=== PATIENT | female | born 1965 | race Caucasian/White ===

== ENCOUNTER 2024-11-01 16:13 | Observation (INO) ==
--- NOTE | 2024-11-01 16:25 | ED Triage Note ---
Date of Service November 01, 2024 Provider in Triage Author: Segun Michel History of Present Illness This patient was briefly evaluated while in triage. An abbreviated physical exam was performed. This patient is a 59-year-old Female who presents to the ED for evaluation Hx of COPD, MS, HTN, lipids, hypothyroidism contact with grandson who is + influenza A sweats/chills, shortness of breath, left sided chest pain, "fluid" in chest x 3 days Physical Exam GENERAL: NAD CARDIOVASCULAR: RRR RESPIRATORY: BS diminished, O2 sats 88-91% ABDOMEN: BS x 4. Nontender to palpation. Initial orders for labs and / or imaging were placed and patient was placed in the waiting area until a bed is available. Please see further documentation for the full ED course.
[2024-11-01 17:04] LABS: Basophils # (auto) 0.01 K/uL (0.00-0.20); Basophils % (auto) 0.2 %; Eosinophils # (auto) 0.03 K/uL (0.00-0.50); Eosinophils % (auto) 0.5 %; Hematocrit (blood only) 37.2 % (37.0-47.0); Immature Granulocytes # (auto) 0.02 K/uL (0.01-0.20); Immature Granulocytes % (auto) 0.3 %; Lymphocytes # (auto) 1.01 K/uL (1.20-3.40); Lymphocytes % (auto) 16.6 %; Mean Corpuscular Hgb Conc 29.6 g/dL (32.0-36.0); Mean Corpuscular Volume 74.4 fL (80.0-100.0); Mean Platelet Volume 10.3 fL (9.4-12.4); Monocytes # (auto) 0.53 K/uL (0.11-0.59); Monocytes % (auto) 8.7 %; Neutrophils # (auto) 4.49 K/uL (1.40-6.50); Neutrophils % (auto) 73.7 %; Platelet Count 256 K/uL (130-400); RDW Coefficient of Variation 17.6 % (11.5-14.5); RDW Standard Deviation 46.7 fL (36.4-46.3); White Blood Count 6.09 K/ul (4.8-10.8)
[2024-11-01 17:17] LABS: Albumin Globulin Ratio 1.4 (0.9-2); Albumin Level 4.3 gm/dl (3.4-5.0); BUN Creatinine Ratio 14.7 (10-20); Bilirubin,Total 0.3 mg/dl (0.2-1.0); Calcium 9.5 mg/dl (8.6-10.3); Creatinine Clr Calc Pharmacy 88.4 ml/min; Globulin 3.1 gm/dl (2.5-4.0); Total Protein 7.4 gm/dl (6.0-8.3)
--- NOTE | 2024-11-01 17:23 | XRay Report ---
Chest radiograph, one view History: Chest pain Comparison: 12/24/2023 Findings: Single AP view of the chest performed. No focal consolidation or pleural effusion. No pneumothorax. The cardiomediastinal silhouette is within normal limits. Normal pulmonary vascularity. No evidence for lymphadenopathy. No visualized bony or soft tissue abnormality. Impression: Normal chest radiograph Electronically signed by Chiki Perea 11-01-2024 5:22 PM
[2024-11-01 17:24] LABS: Troponin I High Sensitivity 2.6 pg/ml (0-14)
[2024-11-01 17:48] LABS: Adenovirus PCR Not Detected (NotDetected); Bordetella parapertussis PCR Not Detected (NotDetected); Bordetella pertussis PCR Not Detected (NotDetected); Chlamydia pneumoniae PCR Not Detected (NotDetected); Coronavirus 229E PCR Not Detected (NotDetected); Coronavirus CoV-2 (COVID19)PCR Not Detected (NotDetected); Coronavirus HKU1 PCR Not Detected (NotDetected); Coronavirus NL63 PCR Not Detected (NotDetected); Coronavirus OC43PCR Not Detected (NotDetected); Human Metapneumovirus PCR Not Detected (NotDetected); Influenza A (H3) PCR DETECTED (NotDetected); Influenza B PCR Not Detected (NotDetected); Mycoplasma pneumoniae PCR Not Detected (NotDetected); Parainfluenza Virus 1 PCR Not Detected (NotDetected); Parainfluenza Virus 2 PCR Not Detected (NotDetected); Parainfluenza Virus 3 PCR Not Detected (NotDetected); Parainfluenza Virus 4 PCR Not Detected (NotDetected); Respiratory Syncytial VirusPCR Not Detected (NotDetected); Rhinovirus/Enterovirus PCR Not Detected (NotDetected)
--- NOTE | 2024-11-01 18:15 | Emergency Department Note ---
Impression & Plan Acute hypoxemic respiratory failure, Upper respiratory infection, Influenza ED Provider Note NAME: SAVANNAH ACKERMAN AGE: 59 SEX: F : 1965 ARRIVES VIA: Walk-In INFORMANT: Patient, ED PROVIDER(S): Adolfo Solis MD CHIEF COMPLAINT: Influenza HPI: This is a 59-year-old female sent for cough, congestion and shortness of breath. Patient notes that her grandson is positive for influenza. She began having symptoms either Wednesday night or Wednesday night. She notes she is feeling wheezy. She took leftover prednisone, 20 mg daily. She notes feeling wheezy without improvement in her inhalers. She reports history of COPD. She reports no nausea or vomiting. Does report fever and chills. ROS: See above HPI for pertinent positives & negatives. A total of 10 systems reviewed and were otherwise negative. PAST MEDICAL HISTORY: See Below PAST SURGICAL HISTORY: See Below FAMILY HISTORY: See Below SOCIAL HISTORY: See Below HOME MEDICATIONS: See Below ALLERGIES: See Below VITALS: See Below PHYSICAL EXAMINATION: General: resting comfortably in no acute distress Head: Normocephalic and atraumatic Eyes: Normal inspection, extraocular muscles intact Ear, nose, throat: Normal external exam Neck: Normal range of motion Respiratory: Wheezing and rhonchi in all lung saini Cardiovascular: Regular rate/rhythm, no murmur GI: soft, nontender, no guarding or rebound Extremities: nontender, moves all extremities Neuro: The patient awake and alert, appropriately conversive, no focal deficits, symmetric faces Skin: Warm, dry, and intact MEDICAL DECISION MAKING: This is a 59-year-old female present for cough, congestion and shortness of breath. Patient is currently tachycardic and hypoxic. Her oxygen level in the triage room is 80-87%. She is tachycardic about 109. -Chest Xray independently interpreted by me showing no pneumothorax, focal opacity, or pleural effusions. -Bloodwork is reviewed showing no significant leukocytosis, anemia, electrolyte or creatinine abnormality. Isolated AST elevation -Patient positive for influenza A -Will give patient albuterol treatments here for her symptomatic wheezing and hypoxia -Patient hypoxia, patient will require admission. Currently requiring 4 L nasal cannula. Differential diagnosis: COPD exacerbation, influenza, pneumonia, PE, sepsis Independent History obtained from: Daughter Diagnostics interpreted by me: ECG: ECG independently interpreted by me with sinus tachycardia 106, normal ME, normal QRS, normal QTc, no ST segment elevations consistent with STEMI criteria Cardiac Monitoring: An order was placed for continuous cardiac monitoring. The monitor shows a rate of 109 with sinus tachycardia rhythm. Past Med/Surg History Problem List (Updated 11/01/24 @ 22:20 by Adolfo Solis MD) Influenza (Acute) Upper respiratory infection (Acute) Acute hypoxemic respiratory failure (Acute) Social History Smoking Status: Current some day smoker Preferred Language: [place]an Feels Safe at Home: Yes Allergies Allergies Allergy/AdvReac Type Severity Reaction Status Date / Time glatiramer (copolymer 1) Allergy Mild Unknown Unverified 11/01/24 19:54 interferon beta-1a Allergy Mild Brand Unverified 11/01/24 19:54 "Avonex" Sulfa (Sulfonamide Allergy Mild Unknown Unverified 11/01/24 19:54 Antibiotics) mannitol Allergy ANAPHYLAXIS Unverified 03/07/12 19:34 Home Meds Home Medications Medication Instructions Recorded Confirmed albuterol sulfate 90 mcg/actuation 2 puff inhalation Q4 PRN Shortness 11/01/24 11/01/24 aerosol inhaler Of Breath Or Wheezing atorvastatin 80 mg tablet 80 mg PO DAILY 11/01/24 11/01/24 baclofen 10 mg tablet 10 mg PO TID PRN Pain 11/01/24 11/01/24 buspirone 15 mg tablet 15 mg PO [facility] 11/01/24 11/01/24 clobetasol 0.05 % topical cream 1 applic topical BID PRN 11/01/24 11/01/24 DIRECTED cyclosporine 0.05 % eye drops in a 1 drp OPB [facility] 11/01/24 11/01/24 dropperette (Restasis) dicyclomine 20 mg tablet 20 mg PO TID PRN STOMACH CRAMPING 11/01/24 11/01/24 diltiazem HCl 240 mg 240 mg PO HS 11/01/24 11/01/24 capsule,extended release 24 hr duloxetine 30 mg capsule,delayed 30 mg PO QPM 11/01/24 11/01/24 release duloxetine 60 mg capsule,delayed 60 mg PO QPM 11/01/24 11/01/24 release fenofibrate 160 mg tablet 160 mg PO HS 11/01/24 11/01/24 fexofenadine 180 mg tablet 180 mg PO HS 11/01/24 11/01/24 fluocinonide 0.05 % topical 1 applic topical 2XWK 11/01/24 11/01/24 solution fluoxetine 40 mg capsule 40 mg PO HS 11/01/24 11/01/24 fluticasone propionate 110 2 puff inhalation [facility] 11/01/24 11/01/24 mcg/actuation HFA aerosol inhaler fluticasone propionate 50 1 spray intranasal BID 11/01/24 11/01/24 mcg/actuation nasal spray,suspension furosemide 20 mg tablet 20 mg PO QAM 11/01/24 11/01/24 gabapentin 800 mg tablet 1,600 mg PO BID 11/01/24 11/01/24 isosorbide mononitrate 30 mg 30 mg PO QAM 11/01/24 11/01/24 tablet,extended release 24 hr levothyroxine 150 mcg tablet 150 mcg PO QPM 11/01/24 11/01/24 linaclotide 145 mcg capsule 145 mcg PO DAILY PRN Constipation 11/01/24 11/01/24 (Linzess) lorazepam 1 mg tablet 1 mg PO HS PRN ANXIETY OR SLEEP 11/01/24 11/01/24 melatonin 10 mg tablet 10 mg PO HS 11/01/24 11/01/24 metformin 1,000 mg tablet 1,000 mg PO AMPM 11/01/24 11/01/24 methocarbamol 750 mg tablet 750 mg PO TID 11/01/24 11/01/24 mupirocin 2 % topical ointment 1 applic topical BID 11/01/24 11/01/24 nitroglycerin 0.4 mg sublingual 0.4 mg sublingual UD PRN Chest Pain 11/01/24 11/01/24 tablet (Nitrostat) ondansetron HCl 4 mg tablet 4 mg PO Q8 PRN Nausea 11/01/24 11/01/24 pantoprazole 40 mg tablet,delayed 40 mg PO BID 11/01/24 11/01/24 release prazosin 2 mg capsule 2 mg PO HS 11/01/24 11/01/24 ropinirole 0.5 mg tablet 0.5 mg PO TID 11/01/24 11/01/24 selenium sulfide 2.25 % shampoo 1 applic topical 2XWK 11/01/24 11/01/24 tiotropium bromide 2.5 2 puff inhalation QAM 11/01/24 11/01/24 mcg/actuation mist for inhalation (Spiriva Respimat) trazodone 100 mg tablet 200 mg PO HS 11/01/24 11/01/24 valacyclovir 1 gram tablet 1,000 mg PO HS 11/01/24 11/01/24 Results & Data (ED) Vital Signs Vital Signs - 24 hr 11/01/24 16:22 11/01/24 18:54 11/01/24 18:54 Temperature 36.4 C L Temperature Source Oral Pulse Rate 111 H 108 H Pulse Rate [Apical] 109 H Pulse Rhythm Regular Pulse Strength Normal Respiratory Rate 20 22 Respiratory Effort / Characteristics Non-Labored Spontaneous Respiratory Depth Normal Blood Pressure 135/74 Blood Pressure [Left Arm] 154/93 H Blood Pressure Mean 94 Blood Pressure Mean [Left Arm] 113 Blood Pressure Position Sitting Blood Pressure Position [Left Arm] Sitting Pulse Oximetry 91 96 Oxygen Delivery Method Room Air Nasal Cannula Oxygen Flow Rate 4 Sepsis Recent Fever Within 48 Hours No Sepsis New/Unexplained Change in Mental Status N/A Sepsis Action Taken by Nursing No Action Required Laboratory Data 11/01/24 16:45 11/01/24 16:45 Lab Results 11/01/24 Range/Units 16:45 WBC 6.09 (4.8-10.8) K/ul RBC 5.00 (4.20-5.40) M/uL Hgb 11.0 L (12.0-16.0) g/dl Hct 37.2 (37.0-47.0) % MCV 74.4 L (80.0-100.0) fL MCH 22.0 L (25.0-34.0) pg MCHC 29.6 L (32.0-36.0) g/dL RDW Std Deviation 46.7 H (36.4-46.3) fL RDW Coeff of Madonna 17.6 H (11.5-14.5) % Plt Count 256 (130-400) K/uL MPV 10.3 (9.4-12.4) fL Immature Gran % (Auto) 0.3 % Neut % (Auto) 73.7 % Lymph % (Auto) 16.6 % Ward % (Auto) 8.7 % Eos % (Auto) 0.5 % Baso % (Auto) 0.2 % Neut # (Auto) 4.49 (1.40-6.50) K/uL Lymph # (Auto) 1.01 L (1.20-3.40) K/uL Ward # (Auto) 0.53 (0.11-0.59) K/uL Eos # (Auto) 0.03 (0.00-0.50) K/uL Baso # (Auto) 0.01 (0.00-0.20) K/uL Immature Gran # (Auto) 0.02 (0.01-0.20) K/uL APTT 28 (21-31) Seconds PTT Ratio 1.0 Sodium 140 (136-145) mmol/L Potassium 4.0 (3.5-5.1) mmol/L Chloride 100 (98-107) mmol/L Carbon Dioxide 30 (21-32) mmol/L Anion Gap 10 (3-11) BUN 14 (6-23) mg/dl Creatinine 0.95 (0.6-1.2) mg/dl Est Cr Clr Drug Dosing 88.4 ml/min eGFR 69.88 BUN/Creatinine Ratio 14.7 (10-20) Glucose 236 H (70-99(Fasting)) mg/dl Calcium 9.5 (8.6-10.3) mg/dl Magnesium 1.7 (1.7-2.4) mg/dl Total Bilirubin 0.3 (0.2-1.0) mg/dl AST 60 H (13-39) U/L ALT 40 (7-52) U/L Alkaline Phosphatase 93 (34-104) U/L Troponin I High Sens 2.6 (0-14) pg/ml Total Protein 7.4 (6.0-8.3) gm/dl Albumin 4.3 (3.4-5.0) gm/dl Globulin 3.1 (2.5-4.0) gm/dl Albumin/Globulin Ratio 1.4 (0.9-2) Lipase 19 (11-82) U/L Adenovirus (PCR) Not Detected (NotDetected) B. pertussis DNA (PCR) Not Detected (NotDetected) B.parapertussis DNA PCR Not Detected (NotDetected) C. pneumoniae DNA (PCR) Not Detected (NotDetected) Coronavirus OC43 (PCR) Not Detected (NotDetected) Coronavirus HKU1 (PCR) Not Detected (NotDetected) Coronavirus 229E (PCR) Not Detected (NotDetected) SARS-CoV-2 (PCR) Not Detected (NotDetected) Coronavirus NL63 (PCR) Not Detected (NotDetected) Human Metapneumovir PCR Not Detected (NotDetected) Influenza A (H3) PCR DETECTED A (NotDetected) Influenza Type B (PCR) Not Detected (NotDetected) M. pneumoniae (PCR) Not Detected (NotDetected) Parainfluenza 1 (PCR) Not Detected (NotDetected) Parainfluenza 2 (PCR) Not Detected (NotDetected) Parainfluenza 3 (PCR) Not Detected (NotDetected) Parainfluenza 4 (PCR) Not Detected (NotDetected) RSV (PCR) Not Detected (NotDetected) Entero/Rhino (PCR) Not Detected (NotDetected) Administered Medications Magnesium Sulfate/Dextrose (Magnesium Sulfate / D5w) 1 gm in 100 mls @ 50 mls/hr IV Q2H ZENIA Stop: 11/02/24 01:14 Last Admin: 11/01/24 22:06 Dose: 50 mls/hr Documented By: BRENDA Sodium Chloride (Nss) 1,000 mls @ 75 mls/hr IV .[id number] ONE Stop: 11/02/24 10:38 Last Admin: 11/01/24 22:08 Dose: 75 mls/hr Documented By: BRENDA Insulin Glargine (Lantus Per Unit Charge) 10 units SQ HS ZENIA Stop: 12/01/24 21:19 Last Admin: 11/01/24 22:07 Dose: 10 units Documented By: BRENDA Co-signed By: BRITTANY Melatonin (Melatonin 3 Mg Tab) 9 mg PO HSZ ZENIA Stop: 12/01/24 21:59 Last Admin: 11/01/24 22:06 Dose: 9 mg Documented By: BRENDA Discontinued Medications Albuterol (Albuterol 0.5% Neb Soln 2.5 Mg/0.5 Ml Vial) 2.5 mg NEB NOW STA; Protocol Stop: 11/01/24 19:01 Last Admin: 11/01/24 19:50 Dose: 2.5 mg Documented By: BRENDA Buspirone HCl (Buspirone 15 Mg Tab) 15 mg PO [facility] Stop: 12/01/24 21:29 Last Admin: 11/01/24 22:18 Dose: Not Given Documented By: BRENDA Diltiazem HCl (Diltiazem Hcl 240 Mg Capcr) 240 mg PO [facility] Stop: 12/01/24 21:29 Last Admin: 11/01/24 22:18 Dose: Not Given Documented By: BRENDA Fluoxetine HCl (Fluoxetine Hcl 20 Mg Cap) 40 mg PO [facility] Stop: 12/01/24 21:29 Last Admin: 11/01/24 22:18 Dose: Not Given Documented By: BRENDA Methylprednisolone (Methylprednisolone 125 Mg/2 Ml Vial) 20 mg IV NOW STA Stop: 11/01/24 21:09 Last Admin: 11/01/24 22:06 Dose: 20 mg Documented By: BRENDA Metoprolol Tartrate (Metoprolol Tartrate 1 Mg/Ml Vial) 2.5 mg IV NOW STA Stop: 11/01/24 19:49 Last Admin: 11/01/24 21:30 Dose: Not Given Documented By: BRENDA Oseltamivir Phosphate (Oseltamivir Phosphate 75 Mg Cap) 75 mg PO NOW ONE; Protocol Stop: 11/01/24 20:01 Last Admin: 11/01/24 21:29 Dose: 75 mg Documented By: BRENDA Imaging Data Radiologist's Impression: Chest X-Ray 11/01/24 16:25 Chest radiograph, one view History: Chest pain Comparison: 12/24/2023 Findings: Single AP view of the chest performed. No focal consolidation or pleural effusion. No pneumothorax. The cardiomediastinal silhouette is within normal limits. Normal pulmonary vascularity. No evidence for lymphadenopathy. No visualized bony or soft tissue abnormality. Impression: Normal chest radiograph Electronically signed by Chiki Perea 11-01-2024 5:22 PM Discharge Plan Visit Data Chief Complaint: Flu Like Symptoms Stated Complaint: FLU LIKE SX ED Provider: Adolfo Solis Discharge Problem: Acute hypoxemic respiratory failure, Upper respiratory infection, Influenza
[2024-11-01] MEDS: ALBUTEROL 0.5% NEB SOLN 2.5 MG/0.5 ML VIAL NEB STA (19:50)
--- NOTE | 2024-11-01 19:56 | History & Physical Report ---
Date of Service November 01, 2024 Assessment & Plan (1) Acute hypoxemic respiratory failure: Plan: Acute hypercapnic, hypoxemic respiratory failure History TATYANA/CPAP intolerance Secondary to COPD exacerbation/complicated bronchitis secondary to influenza illness History TATYANA/CPAP intolerance hx CAD/PVD hypertension, slight elevated hyperlipidemia, on statin Rx thyroid cancer status post surgery postsurgical hypothyroidism, euthyroid as of recent outpatient TSH from last year DM2 on oral medications, well-controlled as of hemoglobin A1c of 6.4 last January 2024 benign adrenal tumor status post surgery IBD, history of ulcerative colitis in remission chronic anemia, at baseline multiple sclerosis, RRMS as per daughter, patient slated to see [facility] neurologist anxiety/mood disorder/fibromyalgia, patient on multiple neuropsychotropic medications ongoing vape use Admit to medical telemetry Supplemental O2 Doxycycline for complicated bronchitis, nebs RTC, Solu-Medrol followed by prednisone course Tamiflu Pulmonology consulted without improvement Hold parameters for sedation confusion for neuropsychotropic medications Basal bolus insulin, ISS BG goal 1 10-1 40, carb count coverage, update hemoglobin A1c Nicotine replacement therapy as needed DVT prophylaxis. Lovenox subcu Full code Total critical care time was 40 minutes. Text document was generated using [employer] voice recognition software. It may contain grammatical or spelling errors. Kindly contact undersigned for clarification of any documentation item in question. History of Present Illness Chief Complaint: Worsening shortness of breath Primary Care Provider: Dr. Hughes History obtained from patient, family, and records. Medical history significant for CAD, PVD, hypertension, hyperlipidemia, COPD, TATYANA/CPAP intolerance, thyroid cancer status post surgery, postsurgical hypothyroidism, DM2 on oral medications, adrenal tumor status post surgery, GERD status post surgery, NAFLD, IBD, chronic anemia (baseline hemoglobin of 11), multiple sclerosis, anxiety/mood disorder, fibromyalgia, HSV on chronic Valtrex prophylaxis, ongoing vape use. 2 days history of junky cough symptoms associated with worsening shortness of breath. Pleuritic left-sided chest pain with abdominal pain. Denies fluid retention. Sick family members with the flu. Patient brought to the ER for evaluation. Medical History as above Surgical History : Thyroidectomy, breast reduction, left adrenalectomy, Niesen fundoplication, sinus surgery, BTL, DARLIN, total thyroidectomy Family History : Heart disease, stroke, Wilms tumor, MS, uterine cancer Personal/Social history : Ongoing vape use, no EtOH intake, disabled Allergies Allergy/AdvReac Type Severity Reaction Status Date / Time glatiramer (copolymer 1) Allergy Mild Unknown Unverified 11/01/24 19:54 interferon beta-1a Allergy Mild Brand Unverified 11/01/24 19:54 "Avonex" Sulfa (Sulfonamide Allergy Mild Unknown Unverified 11/01/24 19:54 Antibiotics) mannitol Allergy ANAPHYLAXIS Unverified 03/07/12 19:34 Home Medications Medication Instructions Recorded Confirmed Type albuterol sulfate 90 mcg/actuation 2 puff inhalation Q4 PRN Shortness 11/01/24 11/01/24 History aerosol inhaler Of Breath Or Wheezing atorvastatin 80 mg tablet 80 mg PO DAILY 11/01/24 11/01/24 History baclofen 10 mg tablet 10 mg PO TID PRN Pain 11/01/24 11/01/24 History buspirone 15 mg tablet 15 mg PO AMHS 11/01/24 11/01/24 History clobetasol 0.05 % topical cream 1 applic topical BID PRN 11/01/24 11/01/24 History DIRECTED cyclosporine 0.05 % eye drops in a 1 drp [facility] 11/01/24 11/01/24 History dropperette (Restasis) dicyclomine 20 mg tablet 20 mg PO TID PRN STOMACH CRAMPING 11/01/24 11/01/24 History diltiazem HCl 240 mg 240 mg PO HS 11/01/24 11/01/24 History capsule,extended release 24 hr duloxetine 30 mg capsule,delayed 30 mg PO QPM 11/01/24 11/01/24 History release duloxetine 60 mg capsule,delayed 60 mg PO QPM 11/01/24 11/01/24 History release fenofibrate 160 mg tablet 160 mg PO HS 11/01/24 11/01/24 History fexofenadine 180 mg tablet 180 mg PO HS 11/01/24 11/01/24 History fluocinonide 0.05 % topical 1 applic topical 2XWK 11/01/24 11/01/24 History solution fluoxetine 40 mg capsule 40 mg PO HS 11/01/24 11/01/24 History fluticasone propionate 110 2 puff inhalation AMHS 11/01/24 11/01/24 History mcg/actuation HFA aerosol inhaler fluticasone propionate 50 1 spray intranasal BID 11/01/24 11/01/24 History mcg/actuation nasal spray,suspension furosemide 20 mg tablet 20 mg PO QAM 11/01/24 11/01/24 History gabapentin 800 mg tablet 1,600 mg PO BID 11/01/24 11/01/24 History isosorbide mononitrate 30 mg 30 mg PO QAM 11/01/24 11/01/24 History tablet,extended release 24 hr levothyroxine 150 mcg tablet 150 mcg PO QPM 11/01/24 11/01/24 History linaclotide 145 mcg capsule 145 mcg PO DAILY PRN Constipation 11/01/24 11/01/24 History (Linzess) lorazepam 1 mg tablet 1 mg PO HS PRN ANXIETY OR SLEEP 11/01/24 11/01/24 History melatonin 10 mg tablet 10 mg PO HS 11/01/24 11/01/24 History metformin 1,000 mg tablet 1,000 mg PO AMPM 11/01/24 11/01/24 History methocarbamol 750 mg tablet 750 mg PO TID 11/01/24 11/01/24 History mupirocin 2 % topical ointment 1 applic topical BID 11/01/24 11/01/24 History nitroglycerin 0.4 mg sublingual 0.4 mg sublingual UD PRN Chest Pain 11/01/24 11/01/24 History tablet (Nitrostat) ondansetron HCl 4 mg tablet 4 mg PO Q8 PRN Nausea 11/01/24 11/01/24 History pantoprazole 40 mg tablet,delayed 40 mg PO BID 11/01/24 11/01/24 History release prazosin 2 mg capsule 2 mg PO HS 11/01/24 11/01/24 History ropinirole 0.5 mg tablet 0.5 mg PO TID 11/01/24 11/01/24 History selenium sulfide 2.25 % shampoo 1 applic topical 2XWK 11/01/24 11/01/24 History tiotropium bromide 2.5 2 puff inhalation QAM 11/01/24 11/01/24 History mcg/actuation mist for inhalation (Spiriva Respimat) trazodone 100 mg tablet 200 mg PO HS 11/01/24 11/01/24 History valacyclovir 1 gram tablet 1,000 mg PO HS 11/01/24 11/01/24 History Past Med/Surg History Problem List (Updated 11/01/24 @ 22:20 by Adolfo Solis MD) Influenza (Acute) Upper respiratory infection (Acute) Acute hypoxemic respiratory failure (Acute) Social History Smoking Status: Current every day smoker Tobacco Type: E-cigarettes / Vaping Hx Alcohol Use: No Hx Substance Use: No Preferred Language: Hungarian Communication Ability: Effective Certified Financial Planner Required: No Beliefs That Will Affect Care: None Current Living Situation: Family Current Living Situation Comment: daughter and her family, son Feels Safe at Home: Yes Assistive Devices: Cane and Walker Review of Systems Review of Systems: As per HPI, all other systems reviewed and negative Physical Exam Physical Exam: GENERAL: Slightly uncomfortable, obese, minimal respiratory distress SKIN: Normal color, warm HEENT: [place] palpebral conjunctivae, no ptosis, dry buccal mucosa, nasal cannula in place NECK : Supple, short neck, no tenderness CHEST : Decreased breath sounds, expiratory wheezes, no tenderness HEART : Tachycardic, no obvious murmurs ABDOMEN: Some distention, nontender EXTREMITIES : No LE swelling/tenderness, no other conspicuous deformities noted NEUROLOGIC : Coherent, no facial asymmetry, rest tremors, no other gross focality Results & Data Results & Data Vital Signs (Past 12 Hours) Vital Signs Temp Pulse Pulse Resp BP BP Pulse Ox 11/01/24 18:54 108 H 11/01/24 18:54 109 H 22 154/93 H 96 11/01/24 16:22 36.4 C L 111 H 20 135/74 91 O2 Del Method O2 Flow Rate 11/01/24 18:54 11/01/24 18:54 Nasal Cannula 4 11/01/24 16:22 Room Air Laboratory Results Laboratory Results WBC 6.09 K/ul (4.8-10.8) 11/01/24 16:45 RBC 5.00 M/uL (4.20-5.40) 11/01/24 16:45 Hgb 11.0 g/dl (12.0-16.0) L 11/01/24 16:45 Hct 37.2 % (37.0-47.0) 11/01/24 16:45 MCV 74.4 fL (80.0-100.0) L 11/01/24 16:45 MCH 22.0 pg (25.0-34.0) L 11/01/24 16:45 MCHC 29.6 g/dL (32.0-36.0) L 11/01/24 16:45 RDW Std Deviation 46.7 fL (36.4-46.3) H 11/01/24 16:45 RDW Coeff of [place] 17.6 % (11.5-14.5) H 11/01/24 16:45 Plt Count 256 K/uL (130-400) 11/01/24 16:45 MPV 10.3 fL (9.4-12.4) 11/01/24 16:45 Immature Gran % (Auto) 0.3 % 11/01/24 16:45 Neut % (Auto) 73.7 % 11/01/24 16:45 Lymph % (Auto) 16.6 % 11/01/24 16:45 [place] % (Auto) 8.7 % 11/01/24 16:45 Eos % (Auto) 0.5 % 11/01/24 16:45 Baso % (Auto) 0.2 % 11/01/24 16:45 Neut # (Auto) 4.49 K/uL (1.40-6.50) 11/01/24 16:45 Lymph # (Auto) 1.01 K/uL (1.20-3.40) L 11/01/24 16:45 [place] # (Auto) 0.53 K/uL (0.11-0.59) 11/01/24 16:45 Eos # (Auto) 0.03 K/uL (0.00-0.50) 11/01/24 16:45 Baso # (Auto) 0.01 K/uL (0.00-0.20) 11/01/24 16:45 Immature Gran # (Auto) 0.02 K/uL (0.01-0.20) 11/01/24 16:45 Sodium 140 mmol/L (136-145) 11/01/24 16:45 Potassium 4.0 mmol/L (3.5-5.1) 11/01/24 16:45 Chloride 100 mmol/L (98-107) 11/01/24 16:45 Carbon Dioxide 30 mmol/L (21-32) 11/01/24 16:45 Anion Gap 10 (3-11) 11/01/24 16:45 BUN 14 mg/dl (6-23) 11/01/24 16:45 Creatinine 0.95 mg/dl (0.6-1.2) 11/01/24 16:45 Est Cr Clr Drug Dosing 88.4 ml/min 11/01/24 16:45 eGFR 69.88 11/01/24 16:45 BUN/Creatinine Ratio 14.7 (10-20) 11/01/24 16:45 Glucose 236 mg/dl (70-99(Fasting)) H 11/01/24 16:45 Calcium 9.5 mg/dl (8.6-10.3) 11/01/24 16:45 Total Bilirubin 0.3 mg/dl (0.2-1.0) 11/01/24 16:45 AST 60 U/L (13-39) H 11/01/24 16:45 ALT 40 U/L (7-52) 11/01/24 16:45 Alkaline Phosphatase 93 U/L (34-104) 11/01/24 16:45 Troponin I High Sens 2.6 pg/ml (0-14) 11/01/24 16:45 Total Protein 7.4 gm/dl (6.0-8.3) 11/01/24 16:45 Albumin 4.3 gm/dl (3.4-5.0) 11/01/24 16:45 Globulin 3.1 gm/dl (2.5-4.0) 11/01/24 16:45 Albumin/Globulin Ratio 1.4 (0.9-2) 11/01/24 16:45 Adenovirus (PCR) Not Detected (NotDetected) 11/01/24 16:45 B. pertussis DNA (PCR) Not Detected (NotDetected) 11/01/24 16:45 B.parapertussis DNA PCR Not Detected (NotDetected) 11/01/24 16:45 C. pneumoniae DNA (PCR) Not Detected (NotDetected) 11/01/24 16:45 Coronavirus OC43 (PCR) Not Detected (NotDetected) 11/01/24 16:45 Coronavirus HKU1 (PCR) Not Detected (NotDetected) 11/01/24 16:45 Coronavirus 229E (PCR) Not Detected (NotDetected) 11/01/24 16:45 SARS-CoV-2 (PCR) Not Detected (NotDetected) 11/01/24 16:45 Coronavirus NL63 (PCR) Not Detected (NotDetected) 11/01/24 16:45 Human Metapneumovir PCR Not Detected (NotDetected) 11/01/24 16:45 Influenza A (H3) PCR DETECTED (NotDetected) A 11/01/24 16:45 Influenza Type B (PCR) Not Detected (NotDetected) 11/01/24 16:45 M. pneumoniae (PCR) Not Detected (NotDetected) 11/01/24 16:45 Parainfluenza 1 (PCR) Not Detected (NotDetected) 11/01/24 16:45 Parainfluenza 2 (PCR) Not Detected (NotDetected) 11/01/24 16:45 Parainfluenza 3 (PCR) Not Detected (NotDetected) 11/01/24 16:45 Parainfluenza 4 (PCR) Not Detected (NotDetected) 11/01/24 16:45 RSV (PCR) Not Detected (NotDetected) 11/01/24 16:45 Entero/Rhino (PCR) Not Detected (NotDetected) 11/01/24 16:45 Impressions Chest X-Ray 11/01/24 16:25 Chest radiograph, one view History: Chest pain Comparison: 12/24/2023 Findings: Single AP view of the chest performed. No focal consolidation or pleural effusion. No pneumothorax. The cardiomediastinal silhouette is within normal limits. Normal pulmonary vascularity. No evidence for lymphadenopathy. No visualized bony or soft tissue abnormality. Impression: Normal chest radiograph Electronically signed by Chiki Perea 11-01-2024 5:[address] chest: Normal chest CTA. No pulmonary embolism. CT abdomen pelvis: No acute findings in the abdomen or pelvis. Hepatomegaly and hepatic steatosis Splenomegaly Interval resection of the left adrenal gland Diagnostic Findings EKG as per my interpretation :Rate 110, sinus tachycardia, LAD, LAFB, LVH, no ischemia
[2024-11-01 19:57] LABS: Magnesium 1.7 mg/dl (1.7-2.4)
[2024-11-01 20:36] LABS: Partial Thromboplastin Time 28 Seconds (21-31)
[2024-11-01 20:43] LABS: HCO3 VBG 35 mmol/L; Oxygen Saturation VBG < 60.0 %; PCO2 VBG 61 mmHg (38-50); PO2 VBG 27 mmHg; pH VBG 7.36 (7.36-7.41)
[2024-11-01] MEDS ORDERED: oxyCODONE HCL IR 5 MG TAB (IMMEDIATE RELEASE) PO PRN (21:16)
[2024-11-01] MEDS ORDERED: PROMETHAZINE 12.5 MG/50.5 ML BAG IV PRN (21:19)
[2024-11-01] MEDS: OSELTAMIVIR PHOSPHATE 75 MG CAP PO ONE (21:29)
[2024-11-01] MEDS: METOPROLOL TARTRATE 1 MG/ML VIAL IV STA (21:30)
[2024-11-01] MEDS: methylPREDNISolone 125 MG/2 ML VIAL IV STA (22:06)
[2024-11-01] MEDS: MELATONIN 3 MG TAB PO SCH (22:06)
[2024-11-01] MEDS: MAGNESIUM SULFATE / D5W 1 GM/100 ML BAG IV SCH (22:06)
[2024-11-01] MEDS: LANTUS PER UNIT CHARGE SQ SCH (22:07)
[2024-11-01] MEDS: SODIUM CHLORIDE 0.9% 1,000 ML IV ONE (22:08)
[2024-11-01] MEDS: dilTIAZem HCL 240 MG CAPCR PO SCH (22:18)
[2024-11-01] MEDS: busPIRone 15 MG TAB PO SCH (22:18)
[2024-11-01] MEDS: FLUoxetine HCL 20 MG CAP PO SCH (22:18)
[2024-11-01] MEDS: OPTIRAY 320 125ml IV ONE (22:44)
[2024-11-01] MEDS: DOXYCYCLINE HYCLATE 100 MG in DEXTROSE 5% MINI-B 100 ML IV STA (22:51)
[2024-11-01] MEDS: FLUTICASONE PROPIONATE NA SPR 16 GM BTL SCH (22:51)
--- NOTE | 2024-11-01 23:53 | CT Scan Report ---
Exam(s): CTA CHEST IV Amt: 118 ml optiray 320 EXAM: CT Angiography Chest With Intravenous Contrast CLINICAL HISTORY: Reason for exam: cp. TECHNIQUE: Axial computed tomographic angiography images of the chest with intravenous contrast. CTDI is 11.87 mGy and DLP is 5.94 mGy-cm. Automated exposure control was utilized for the study. A dose lowering technique was utilized adhering to the principles of ALARA. MIP reconstructed images were created and reviewed. COMPARISON: No relevant prior studies available. FINDINGS: Pulmonary arteries: Unremarkable. No pulmonary embolism. Aorta: No acute findings. No thoracic aortic aneurysm. Lungs: Unremarkable. No mass. No consolidation. Pleural space: Unremarkable. No significant effusion. No pneumothorax. Heart: Unremarkable. No cardiomegaly. No significant pericardial effusion. No evidence of RV dysfunction. Bones/joints: No acute fracture. No dislocation. Soft tissues: Unremarkable. Lymph nodes: Unremarkable. No enlarged lymph nodes. IMPRESSION: Normal chest CTA. No pulmonary embolism. Electronically signed by: Richard Garcia MD 11/01/24 23:52 PM
--- OUTSIDE RECORDS SUMMARY | 2024-11-01 23:53 | External Medical Summary | Summary of Care ---
Author Name Unknown Organization [facility] Address [address] [place] [address] Phone [phone] Care Team Providers Care Yarn Preparation Supervisor Name Role Phone Sher Hughes MD Primary Care Provider [phone] Reason for Visit * Reason Comments eRx-Medication Refill Encounter Details Date Type Department Care Team (Late st Contact Info) Description 10/27/2024 Refill General Internal Medicine [facility] [address] [facility] [place] [address] Brina Ruth MD [address] [place] [address] Persistent insomnia Allergies Active Allergy Reactions Criticality Noted Date Comments Avonex Prefilled Anaphylaxis High 09/03/2009 Glatiramer Acetate Anaphylaxis High 09/03/2009 Anaph, copaxone, beta interferon 1 Penicillins 05/20/2020 Pt reports yeast infection due to being immunocompromised Sulfa Antibiotics 05/27/2010 Itchy documented as of this encounter (statuses as of 10/27/2024) Medications CLOBETASOL PROPIONATE 0.05 % EX CREAIndications:Ot her psoriasis apply to affected area twice a day for UP TO 2 weeks 15 g 1 3 Active nitroglycerin (NITROSTAT) 0.4 MG SUBL One tablet under tongue if needed for chest pain. May repeat 3 times. If chest pain continues, call [phone] 25 Tab 5 0 Active Mupirocin 2 % External Ointment Apply topically to affected area 2 times a day. As directed. 15 g 2 0 Active Linzess 145 MCG Oral Capsule Take 1 Capsule by mouth in the morning. 1 Active Carvedilol 25 MG Oral Tablet (Coreg) Take 1 Tablet by mouth in the morning and 1 Tablet before bedtime. 1 Active Melatonin 10 MG Oral Tablet Take 1 Tablet by mouth in the morning. Active Pantoprazole Sodium 40 MG Oral Tablet Delayed Release (Protonix)Indicati ons:Leach's esophagus with dysplasia TAKE ONE TABLET TWICE A DAY BY MOUTH 30-60 MINUTES BEFORE A MEAL OR AFTER 1 Active dilTIAZem HCl ER Coated Beads 120 MG Oral Capsule Extended Release 24 Hour (Cardizem CD)Indications:HTN , goal below 140/90 Take by mouth 2 Capsules in the morning. 30 Capsule 5 2 Active Fluocinonide 0.05 % External SolutionIndication s:Seborrhea capitis in adult APPLY TOPICALLY TO SCALP DAILY FOR 1 WEEK THEN 1-2 TIMES PER WEEK 60 mL 1 2 Active cycloSPORINE 0.05 % Ophthalmic Emulsion Instill 1 Drop into both eyes in the morning and 1 Drop before bedtime. 60 mL 2 Active Dicyclomine HCl 20 MG Oral Tablet (Bentyl) 2 Active Albuterol Sulfate HFA 108 (90 Base) MCG/ACT Inhalation Aerosol SolutionIndication s:COPD, group B, by GOLD 2017 classification ([facility]),Moderate persistent asthma with acute exacerbation,COPD exacerbation ([facility]) INHALE 2 PUFFS BY MOUTH EVERY 4 HOURS IF NEEDED 54 g 3 3 Active Spacer/Aero-Holdin g Chambers DeviceIndications: COPD, group B, by GOLD 2017 classification ([facility]),COPD exacerbation ([facility]) Use with inhaler. 1 Each 3 Active Fluticasone Propionate HFA 110 MCG/ACT Inhalation Aerosol (Flovent HFA)Indications:CO PD, group B, by GOLD 2017 classification ([facility]) Inhale 2 Puffs by mouth in the morning and 2 Puffs before bedtime. 36 g 3 3 Active Isosorbide Mononitrate ER 30 MG Oral Tablet Extended Release 24 Hour (Imdur) Take 1 Tablet by mouth in the morning. 3 Active Azithromycin 250 MG Oral Tablet (Zithromax Z-Jose Angel)Indications: Other chronic sinusitis Take two tablets by mouth on first day, then 1 tablet daily until gone 6 Tablet 3 Active Selenium Sulfide 2.25 % External ShampooIndications :Seborrheic dermatitis Apply to scalp and wash twice a week 180 mL 5 3 Active Atorvastatin Calcium 40 MG Oral Tablet (Lipitor) TAKE ONE TABLET BY MOUTH EVERY DAY 90 Tablet 2 3 Active DULoxetine HCl 60 MG Oral Capsule Delayed Release Particles (Cymbalta)Indicati ons:Fibromyalgia,G AD (generalized anxiety disorder) TAKE ONE CAPSULE BY MOUTH EVERY MORNING 90 Capsule 3 3 Active Spiriva Respimat 2.5 MCG/ACT Inhalation Aerosol Solution (Tiotropium Eagle Monohydrate) INHALE 2 PUFFS BY MOUTH IN THE MORNING 12 g 3 3 Active Accu-Chek Nieves Plus w/Device Kit Use to test 4 times daily. 1 Kit 4 Active Accu-Chek Nieves Plus In Vitro Strip (Glucose Blood) Use to test 4 times daily. 400 Strip 1 4 Active Accu-Chek Softclix Lancets Use to test 4 times daily. 400 Each 1 4 Active Alcohol Prep 70 % Pad Use to test 4 times daily. 400 Each 1 4 Active Glucose Control In Vitro Solution Use to calibrate meter. 1 Each 5 4 Active OneTouch Verio w/Device Kit Use up to 4 times a day E11.9 1 Kit 4 Active OneTouch Verio In Vitro Strip (Glucose Blood) Use up to 4 times a day E11.9 100 Strip 11 4 Active DULoxetine HCl 30 MG Oral Capsule Delayed Release Particles (Cymbalta)Indicati ons:Persistent insomnia TAKE ONE CAPSULE BY MOUTH EVERY EVENING. DO NOT CUT, CRUSH OR CHEW. 90 Capsule 1 4 Active Gabapentin 800 MG Oral Tablet (Neurontin) TAKE TWO TABLETS BY MOUTH EVERY MORNING AND TAKE TWO TABLETS BY MOUTH IN THE AFTERNOON 120 Tablet 11 4 Active busPIRone HCl 15 MG Oral Tablet (Buspar)Indication s:JINA (generalized anxiety disorder) Take 1 Tablet by mouth in the morning and 1 Tablet before bedtime. 60 Tablet 5 4 Active rOPINIRole HCl 0.5 MG Oral Tablet (Requip)Indication s:Restless legs syndrome Take 1 Tablet by mouth in the morning and 1 Tablet at noon and 1 Tablet before bedtime. 270 Tablet 3 4 Active Furosemide 20 MG Oral Tablet (Lasix) TAKE ONE TABLET BY MOUTH EVERY MORNING 30 Tablet 5 4 Active valACYclovir HCl 1 GM Oral Tablet (Valtrex) Take 1 Tablet by mouth daily. (For suppression) 90 Tablet 3 4 Active Methocarbamol 750 MG Oral Tablet (Robamol)Indicatio ns:HTN, goal below 140/90 TAKE ONE TABLET BY MOUTH THREE TIMES A DAY 270 Tablet 1 4 Active Ondansetron HCl 4 MG Oral Tablet (Zofran)Indication s:Nausea with vomiting TAKE ONE TABLET BY MOUTH EVERY 8 HOURS NEEDED FOR NAUSEA 270 Tablet 1 4 Active FLUoxetine HCl 40 MG Oral Capsule (PROzac)Indication s:Generalized anxiety disorder TAKE ONE CAPSULE BY MOUTH EVERY MORNING 90 Capsule 3 4 Active LORazepam 1 MG Oral Tablet (Ativan)Indication s:JINA (generalized anxiety disorder),Chronic post-traumatic stress disorder (PTSD),Other insomnia Take 1 Tablet by mouth at bedtime as needed for Anxiety or Sleep. Do not start before April 02, 2024. 30 Tablet 4 Active traZODone HCl 100 MG Oral Tablet (Desyrel)Indicatio ns:Persistent insomnia Take 1 Tablet by mouth at bedtime. 90 Tablet 3 4 Active metFORMIN HCl 1000 MG Oral Tablet (Glucophage)Indica tions:Type 2 diabetes mellitus with hemoglobin A1c goal of less than 7.0% ([facility]) TAKE ONE TABLET BY MOUTH TWICE A DAY(MORNING AND EVENING MEALS) 180 Tablet 3 4 Active Fluticasone Propionate 50 MCG/ACT Nasal Suspension (Flonase)Indicatio ns:COPD, group B, by GOLD 2017 classification ([facility]),Non-seasonal allergic rhinitis due to pollen SPRAY 1 SPRAY IN EACH NOSTRIL TWICE A DAY 48 g 3 4 Active Fenofibrate 160 MG Oral Tablet (Lofibra) TAKE ONE TABLET BY MOUTH EVERY MORNING 90 Tablet 4 Active Baclofen 10 MG Oral Tablet (Lioresal)Indicati ons:Fibromyalgia TAKE ONE TABLET BY MOUTH THREE TIMES A DAY NEEDED FOR PAIN 270 Tablet 1 4 Active Levothyroxine Sodium 150 MCG Oral Tablet (Levoxyl)Indicatio ns:Carotid stenosis, asymptomatic, bilateral TAKE ONE TABLET BY MOUTH IN THE MORNING . AT LEAST 30 MINUTES PRIOR TO BREAKFAST OR OTHER MEDS. 30 Tablet 3 4 Active Fexofenadine HCl 180 MG Oral Tablet (Shilpa) TAKE ONE TABLET BY MOUTH EVERY DAY 90 Tablet 3 5 Active documented as of this encounter (statuses as of 10/27/2024) Active Problems Problem Noted Date Diagnosed Date Physical deconditioning 10/04/2023 Moderate episode of recurrent major depressive d isorder 05/06/2023 HTN, goal below 130/80 03/25/2022 Ulcerative colitis 10/06/2021 Dyslipidemia 10/06/2021 Carotid stenosis, asymptomatic, bilateral 2020 Morbid obesity due to excess calories 12/30/2020 Body mass index (BMI) of 40.0 to 44.9 in adult 0 04/22/2020 Overview: Per Obesity protocol Papillary carcinoma of thyroid 04/17/2020 Chronic post-traumatic stress disorder (PTSD) JINA (generalized anxiety disorder) 04/17/2020 Nightmare 04/17/2020 COPD, group B, by GOLD 2017 classification 03/18 Overview: Per COPD GOLD Classification Recurrent acute sinusitis 02/02/2020 Generalized abdominal pain 10/19/2015 Kidney disease, chronic, stage III (GFR 30-59 ml /min) 09/02/2012 Type 2 diabetes mellitus wit h hemoglobin A1c goal of less than 7.0% 08/13/2011 Overview (02/04/2016): ICD-10 update of inactive term Dyslipidemia, goal LDL below 100 08/13/2010 Celiac disease 05/27/2010 Migraine with aura 09/03/2009 Overview (09/03/2009): 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 Fibromyalgia Other chronic sinusitis Irritable bowel syndrome Anemia Acquired hypothyroidism Neurogenic bladder Coronary atherosclerosis of [place] coronary shahbaz ry documented as of this encounter (statuses as of 10/27/2024) Resolved Problems Problem Noted Date Diagnosed Date Resolved Date Multiple sclerosis 10/06/2021 2 COPD, mild 08/13/2011 03/21/2020 Overview: Per COPD GOLD Classification Follow-up examination, javier dawson other surgery 06/27/2010 05/11/2011 Adrenal disorder 06/27/2010 05/11/2011 Plantar fasciitis 12/13/2019 documented as of this encounter (statuses as of 10/27/2024) Immunizations Name Administration Dates Next Due HEP B - Hepatitis B (Adole/H igh Risk Ped, 11-15 yrs 11/01/2019 Hepatitis B Vaccine 11/14/2020,11/01/2019 Hepatitis B, 20+ yrs 11/14/2020 MMR - Measles/Mumps/Rubella Vaccine 11/01/2019 Pneumococcal Conjugate Vacci ne, 20-valent ([id number]) 10/15/2022 Pneumococcal Polysaccharide PPV23 (Pneumovax) 12/30/2010 Seasonal Influenza Vac., MDV , IM, 0.5 mL (Fluzone) 08/13/2020,08/19/2012,08/02/2011,08/13 Seasonal Influenza, PF, 6 M & above, IM , (FluLaval or Fluzone) 10/15/2022 Seasonal Influenza, QUAD, wi th Preserv, 6 mons & Above, 0.5 mL, IM 08/04/2021 Seasonal Influenza, Quadriva lent, No Preserve, IM 08/13/2020 TD, Preservative Free 11/14/2020 Zoster Vaccine Recombinant (Shingrix) 11/01/2019 documented as of this encounter Social History Tobacco Use Types Packs/Day Years Used Date Smoking Tobacco: Former Cigarettes Q uit: 10/11/1989 Smokeless Tobacco: Never Alcohol Use Standard Drinks/Week Comments No 0 (1 standard drink = 0.6 oz pur e alcohol) PHQ-2 Answer Date Recorded PHQ-2 Score 2 12/13/2019 Hunger Vital Sign Answer Date Recorded Worried About Running Out of Food in the Last Ye ar Never true 12/13/2019 Ran Out of Food in the Last Year Never true 12/13/2019 Utilities Answer Date Recorded Do you have trouble paying y our heating, water, or electric bill? (Adult - for ages 18 years and over) Not on file 03/28/2024 Is your family able to pay t he heat, water, or electric bill? (Household - for ages 0-17 years) Not on file 03/28/2024 Does your family have access to good internet? (Household - for ages 0-17 years) Not on file 03/28/2024 Social Connections Answer Date Recorded How often do you feel lonely or isolated from those around you? (Adult - for ages 18 years and over) Not on file 03/28/2024 Comments No Sex and Gender Information Value Date Recorded Sex Assigned at Female 12/13/2019 10:00 AM EST Legal Sex Female 6:15 AM EST Gender Identity Female 12/13/2019 10:00 AM EST Sexual Orientation Straight 01/17/2024 10 :51 AM EDT Sexual Orientation Choose not to disclose 2023 10:51 AM EDT Occupation Industry Job Start Date Job End Date Disabled Not on file Not on file Not on file documented as of this encounter Miscellaneous Notes * Telephone Encounter - Sena Chilel RPh - 10/27/2024 12:13 PM ESTRefused Prescriptions: Disp Refills traZODone HCl 100 MG Oral Tablet (Desyrel) 90 Tab*3 Sig: TAKE ONE TABLET BY MOUTH DAILY AT BEDTIMERefused By: SENA CHILEL for Refusal: Too soon documented in this encounter Plan of Treatment Health Maintenance Due Date Last Done Comments Alpha-1 Antitrypsin 1985 Diabetic Eye Exam 09/03/2010 09/03/2009 Mammogram 10/24/2011 10/24/2010 Cologuard 2012 Fecal Occult Blood Test 2012 Sigmoidoscopy 2012 *COPD SEVERITY VERIFIED BY PFT 12/06/2019 Zoster Vaccines (2 of 2) 12/27/2019 11/01/2019 DTap/Tdap Vaccines (1 - Tdap) 11/15/2020 11/14/2020 Depression Monitoring 12/12/2020 12/13/2019 Hepatitis B Vaccine (3 of 3 - 19+ 3-dose series) 01/09/2021 11/14/2020, 11/14/2020, 11/01/2019, Additional history exists B-12 03/22/2024 03/22/2023, 03/11, 12/13/2019, Additional history exists Albumin/Creatinine Ratio 05/06/2024 023, 09/26/2021, 10/09/2020, Additional history exists CKD PHOS USE SMARTSET 02688 05/06/202404/11, 04/04/2023, 08/22/2021, Additional history exists COVID-19 Vaccine ( - season) 2024 Influenza Vaccine (FLU shot) (#1) 2024 10/15/2022, 08/04/2021, 08/13/2020, Additional history exists GFR 07/29/2024 01/28/2024, 12/09, 05/06/2023, Additional history exists HbA1c 07/29/2024 01/28/2024, 03/12, 04/04/2023, Additional history exists Diabetic Foot Exam 01/17/2025 01/18/2024, 0 10/15/2022, 11/14/2020, Additional history exists O2 ASSESSMENT COMPLETED IN PAST YEAR FOR COPD 01/17/2025 01/18/2024 CKD HGB USE SMARTSET 61106 01/27/202501/27, 12/26/2023, 05/06/2023, Additional history exists TSH 01/27/2025 01/28/2024, 12/09, 05/06/2023, Additional history exists Colonoscopy 05/13/2031 05/13/2021, 04/28/2010 Colorectal Cancer Screening 05/13/2031 Pneumococcal Vaccine: 50+ Years Completed 10/15/2022, 12/30/2010 HPV (Gardasil) Vaccine Aged Out No lo nger eligible based on patient's age to complete this topic MENINGOCOCCAL (MENACTRA/MENVEO) Aged Out No longer eligible based on patient's age to complete this topic documented as of this encounter Medical Devices Not on filedocumented as of this encounter Visit Diagnoses Diagnosis Persistent insomnia Persistent disorder of initiating or maintaining sleep documented in this encounter Advance Directives * Full Code (Latest Code Status on File) Date Activated Date Inactivated Comments 06/26/2010 2:03 PM 06/27/2010 5:55 PM This order r eflects the patients wishes and were consensually agreed upon. Care Teams Yarn Preparation Supervisor Relationship Specialty Start Date End Date Sher Hughes MD [address] [place] [address] PCP - General Internal Medicine 08/30/24 documented as of this encounter
--- OUTSIDE RECORDS SUMMARY | 2024-11-01 23:54 | External Medical Summary | Summary of Care ---
Author Name Unknown Organization [facility] Address [address] [place] [address] Phone [phone] Care Team Providers Care Maintainer Sewer And Waterworks Name Role Phone Sher Hughes MD Primary Care Provider [phone] Reason for Visit * Reason Comments eRx-Medication Refill Encounter Details Date Type Department Care Team (Late st Contact Info) Description 10/23/2024 Refill General Internal Medicine [facility] [address] [facility] [place] [address] Brina Ruth MD [address] [place] [address] Allergies Active Allergy Reactions Criticality Noted Date Comments Avonex Prefilled Anaphylaxis High 09/03/2009 Glatiramer Acetate Anaphylaxis High 09/03/2009 Anaph, copaxone, beta interferon 1 Penicillins 05/20/2020 Pt reports yeast infection due to being immunocompromised Sulfa Antibiotics 05/27/2010 Itchy documented as of this encounter (statuses as of 10/24/2024) Medications CLOBETASOL PROPIONATE 0.05 % EX CREAIndications:O ther psoriasis apply to affected area twice a day for UP TO 2 weeks 15 g 1 11/05/19 13 Active nitroglycerin (NITROSTAT) 0.4 MG SUBL One tablet under tongue if needed for chest pain. May repeat 3 times. If chest pain continues, call 911 25 Tab 5 06/04/20 20 Active Mupirocin 2 % External Ointment Apply topically to affected area 2 times a day. As directed. 15 g 2 08/28/20 20 Active Linzess 145 MCG Oral Capsule Take 1 Capsule by mouth in the morning. 12/06/19 21 Active Carvedilol 25 MG Oral Tablet (Coreg) Take 1 Tablet by mouth in the morning and 1 Tablet before bedtime. 06/23/20 21 Active Melatonin 10 MG Oral Tablet Take 1 Tablet by mouth in the morning. Active Pantoprazole Sodium 40 MG Oral Tablet Delayed Release (Protonix)Indicat ions:Leach's esophagus with dysplasia TAKE ONE TABLET TWICE A DAY BY MOUTH 30-60 MINUTES BEFORE A MEAL OR AFTER 08/22/20 21 Active dilTIAZem HCl ER Coated Beads 120 MG Oral Capsule Extended Release 24 Hour (Cardizem CD)Indications:HT N, goal below 140/90 Take by mouth 2 Capsules in the morning. 30 Capsule 5 02/27/20 22 Active Fluocinonide 0.05 % External SolutionIndicatio ns:Seborrhea capitis in adult APPLY TOPICALLY TO SCALP DAILY FOR 1 WEEK THEN 1-2 TIMES PER WEEK 60 mL 1 05/18/20 22 Active cycloSPORINE 0.05 % Ophthalmic Emulsion Instill 1 Drop into both eyes in the morning and 1 Drop before bedtime. 60 mL 07/09/20 22 Active Dicyclomine HCl 20 MG Oral Tablet (Bentyl) 07/08/20 22 Active Albuterol Sulfate HFA 108 (90 Base) MCG/ACT Inhalation Aerosol SolutionIndicatio ns:COPD, group B, by GOLD 2017 classification ([facility]),Moderate persistent asthma with acute exacerbation,COPD exacerbation ([facility]) INHALE 2 PUFFS BY MOUTH EVERY 4 HOURS IF NEEDED 54 g 3 10/15/19 23 Active Spacer/Aero-Holdi ng Chambers DeviceIndications :COPD, group B, by GOLD 2017 classification ([facility]),COPD exacerbation ([facility]) Use with inhaler. 1 Each 10/15/19 23 Active Fluticasone Propionate HFA 110 MCG/ACT Inhalation Aerosol (Flovent HFA)Indications:C OPD, group B, by GOLD 2017 classification ([facility]) Inhale 2 Puffs by mouth in the morning and 2 Puffs before bedtime. 36 g 3 01/05/20 23 Active Isosorbide Mononitrate ER 30 MG Oral Tablet Extended Release 24 Hour (Imdur) Take 1 Tablet by mouth in the morning. 05/06/20 Active Azithromycin 250 MG Oral Tablet (Zithromax Z-Jose Angel)Indications :Other chronic sinusitis Take two tablets by mouth on first day, then 1 tablet daily until gone 6 Tablet 05/06/20 Active Selenium Sulfide 2.25 % External ShampooIndication s:Seborrheic dermatitis Apply to scalp and wash twice a week 180 mL 5 05/13/20 Active Atorvastatin Calcium 40 MG Oral Tablet (Lipitor) TAKE ONE TABLET BY MOUTH EVERY DAY 90 Tablet 2 08/02/20 Active DULoxetine HCl 60 MG Oral Capsule Delayed Release Particles (Cymbalta)Indicat ions:Fibromyalgia ,JINA (generalized anxiety disorder) TAKE ONE CAPSULE BY MOUTH EVERY MORNING 90 Capsule 3 10/02/20 Active Spiriva Respimat 2.5 MCG/ACT Inhalation Aerosol Solution (Tiotropium [place] Monohydrate) INHALE 2 PUFFS BY MOUTH IN THE MORNING 12 g 3 10/02/20 Active Accu-Chek Nieves Plus w/Device Kit Use to test 4 times daily. 1 Kit 11/02/19 Active Accu-Chek Nieves Plus In Vitro Strip (Glucose Blood) Use to test 4 times daily. 400 Strip 1 11/02/19 Active Accu-Chek Softclix Lancets Use to test 4 times daily. 400 Each 1 11/02/19 Active Alcohol Prep 70 % Pad Use to test 4 times daily. 400 Each 1 11/02/19 Active Glucose Control In Vitro Solution Use to calibrate meter. 1 Each 5 11/02/19 24 Active OneTouch Verio w/Device Kit Use up to 4 times a day E11.9 1 Kit 11/08/19 24 Active OneTouch Verio In Vitro Strip (Glucose Blood) Use up to 4 times a day E11.9 100 Strip 11 11/08/19 Active DULoxetine HCl 30 MG Oral Capsule Delayed Release Particles (Cymbalta)Indicat ions:Persistent insomnia TAKE ONE CAPSULE BY MOUTH EVERY EVENING. DO NOT CUT, CRUSH OR CHEW. 90 Capsule 1 11/09/19 24 Active Gabapentin 800 MG Oral Tablet (Neurontin) TAKE TWO TABLETS BY MOUTH EVERY MORNING AND TAKE TWO TABLETS BY MOUTH IN THE AFTERNOON 120 Tablet 11 12/30/19 24 Active busPIRone HCl 15 MG Oral Tablet (Buspar)Indicatio ns:JINA (generalized anxiety disorder) Take 1 Tablet by mouth in the morning and 1 Tablet before bedtime. 60 Tablet 5 01/18/20 24 Active rOPINIRole HCl 0.5 MG Oral Tablet (Requip)Indicatio ns:Restless legs syndrome Take 1 Tablet by mouth in the morning and 1 Tablet at noon and 1 Tablet before bedtime. 270 Tablet 3 01/21/20 24 Active Furosemide 20 MG Oral Tablet (Lasix) TAKE ONE TABLET BY MOUTH EVERY MORNING 30 Tablet 5 01/29/20 24 Active valACYclovir HCl 1 GM Oral Tablet (Valtrex) Take 1 Tablet by mouth daily. (For suppression) 90 Tablet 3 02/24/20 24 Active Methocarbamol 750 MG Oral Tablet (Robamol)Indicati ons:HTN, goal below 140/90 TAKE ONE TABLET BY MOUTH THREE TIMES A DAY 270 Tablet 1 03/01/20 24 Active Ondansetron HCl 4 MG Oral Tablet (Zofran)Indicatio ns:Nausea with vomiting TAKE ONE TABLET BY MOUTH EVERY 8 HOURS NEEDED FOR NAUSEA 270 Tablet 1 03/11/20 24 Active FLUoxetine HCl 40 MG Oral Capsule (PROzac)Indicatio ns:Generalized anxiety disorder TAKE ONE CAPSULE BY MOUTH EVERY MORNING 90 Capsule 3 03/15/20 24 Active LORazepam 1 MG Oral Tablet (Ativan)Indicatio ns:JINA (generalized anxiety disorder),Chronic post-traumatic stress disorder (PTSD),Other insomnia Take 1 Tablet by mouth at bedtime as needed for Anxiety or Sleep. Do not start before April 02, 2024. 30 Tablet 04/02/20 24 Active traZODone HCl 100 MG Oral Tablet (Desyrel)Indicati ons:Persistent insomnia Take 1 Tablet by mouth at bedtime. 90 Tablet 3 04/16/20 24 Active metFORMIN HCl 1000 MG Oral Tablet (Glucophage)Indic ations:Type 2 diabetes mellitus with hemoglobin A1c goal of less than 7.0% ([facility]) TAKE ONE TABLET BY MOUTH TWICE A DAY(MORNING AND EVENING MEALS) 180 Tablet 3 04/27/20 24 Active Fluticasone Propionate 50 MCG/ACT Nasal Suspension (Flonase)Indicati ons:COPD, group B, by GOLD 2017 classification ([facility]),Non-seasona l allergic rhinitis due to pollen SPRAY 1 SPRAY IN EACH NOSTRIL TWICE A DAY 48 g 3 05/10/20 24 Active Fenofibrate 160 MG Oral Tablet (Lofibra) TAKE ONE TABLET BY MOUTH EVERY MORNING 90 Tablet 06/07/20 24 Active Baclofen 10 MG Oral Tablet (Lioresal)Indicat ions:Fibromyalgia TAKE ONE TABLET BY MOUTH THREE TIMES A DAY NEEDED FOR PAIN 270 Tablet 1 06/09/20 24 Active Levothyroxine Sodium 150 MCG Oral Tablet (Levoxyl)Indicati ons:Carotid stenosis, asymptomatic, bilateral TAKE ONE TABLET BY MOUTH IN THE MORNING . AT LEAST 30 MINUTES PRIOR TO BREAKFAST OR OTHER MEDS. 30 Tablet 3 08/25/20 24 Active Fexofenadine HCl 180 MG Oral Tablet (Shilpa) TAKE ONE TABLET BY MOUTH EVERY DAY 90 Tablet 3 10/24/19 25 Active Fexofenadine HCl 180 MG Oral Tablet (Shilpa) TAKE ONE TABLET BY MOUTH EVERY DAY 90 Tablet 3 08/14/20 23 025 Discontinued documented as of this encounter (statuses as of 10/24/2024) Active Problems Problem Noted Date Diagnosed Date [...] Acquired hypothyroidism Neurogenic bladder Coronary atherosclerosis of [place] coronary shahbaz ry documented as of this encounter (statuses as of 10/24/2024) Resolved Problems Problem Noted Date Diagnosed Date Resolved Date Multiple sclerosis 10/06/2021 2 COPD, mild 08/13/2011 03/21/2020 Overview: Per COPD GOLD Classification Follow-up examination, lindsayo other surgery 06/27/2010 05/11/2011 Adrenal disorder 06/27/2010 05/11/2011 Plantar fasciitis 12/13/2019 documented as of this encounter (statuses as of 10/24/2024) Immunizations Name Administration Dates Next Due HEP B - Hepatitis B (Adole/H igh Risk Ped, 11-15 yrs 11/01/2019 Hepatitis B Vaccine 11/14/2020,11/01/2019 Hepatitis B, 20+ yrs 11/14/2020 MMR - Measles/Mumps/Rubella Vaccine 11/01/2019 Pneumococcal Conjugate Vacci ne, 20-valent ([id number]) 10/15/2022 Pneumococcal Polysaccharide PPV23 (Pneumovax) 12/30/2010 Seasonal [...] encounter Miscellaneous Notes * Telephone Encounter - Hui Dowd RPh - 10/24/2024 12:23 PM EST Signed Prescriptions: Disp Refills Fexofenadine HCl 180 MG Oral Tablet (Alleg*90 Tab*3 Sig: TAKE ONE TABLET BY MOUTH EVERY DAYAuthorizing Provider: Sp RUTH User: HUI DOWD documented in this encounter Plan of Treatment [...] Additional history exists CKD PHOS USE SMARTSET 39260 05/06/202404/11, 04/04/2023, 08/22/2021, Additional history exists COVID-19 Vaccine ( season) 2024 Influenza Vaccine (FLU shot) (#1) 2024 10/15/2022, 08/04/2021, 08/13/2020, Additional history exists GFR 07/29/2024 01/28/2024, 12/09, 05/06/2023, Additional history exists HbA1c 07/29/2024 01/28/2024, 0602/2023, 04/04/2023, Additional history exists Diabetic Foot Exam 01/17/2025 01/18/2024, 0 10/15/2022, 11/14/2020, Additional history exists O2 ASSESSMENT COMPLETED IN PAST YEAR FOR COPD 01/17/2025 01/18/2024 CKD HGB USE SMARTSET 88522 01/27/202501/27, 12/26/2023, 05/06/2023, Additional history exists TSH 01/27/2025 01/28/2024, 12/09, 05/06/2023, Additional history exists Colonoscopy 05/13/2031 05/13/2021, 04/28/2010 Colorectal Cancer Screening 05/13/2031 Pneumococcal Vaccine: 50+ Years Completed 10/15/2022, 12/30/2010 Pneumococcal Vaccine: Pediatrics (0 to 5 Years) and At-Risk Patients (6 to 18 Years and 19+ Years) Completed 10/15/2022, 12/30/2010 HPV (Gardasil) Vaccine Aged Out No lo nger eligible based on patient's age to complete this topic MENINGOCOCCAL (MENACTRA/MENVEO) Aged Out No longer eligible based on patient's age to complete this topic documented as of this encounter Medical Devices Not on filedocumented as of this encounter Advance Directives * Full Code (Latest Code Status on File) Date Activated Date Inactivated Comments 06/26/2010 2:03 PM 06/27/2010 5:55 PM This order r eflects the patients wishes and were consensually agreed upon. Care Teams Maintainer [employer] Relationship Specialty Start Date End Date Sher Hughes MD [address] [place] [address] PCP - General Internal Medicine 08/30/24 documented as of this encounter
--- OUTSIDE RECORDS SUMMARY | 2024-11-01 23:54 | External Medical Summary | Summary of Care ---
Author Name Unknown Organization [facility] Address [address] [place] [address] Phone [phone] Care Team Providers Care Ripper Operator Name Role Phone Sher Hughes MD Primary Care Provider [phone] Reason for Visit * Reason Comments eRx-Medication Refill Encounter Details Date Type Department Care Team (Late st Contact Info) Description 09/21/2024 Refill General Internal Medicine [facility] [address] [facility] [place] [address] Brina Ruth MD [address] [place] [address] HTN, goal below 140/90 Allergies Active Allergy Reactions Criticality Noted Date Comments Avonex Prefilled Anaphylaxis High 09/03/2009 Glatiramer Acetate Anaphylaxis High 09/03/2009 Anaph, copaxone, beta interferon 1 Penicillins 05/20/2020 Pt reports yeast infection due to being immunocompromised Sulfa Antibiotics 05/27/2010 Itchy documented as of this encounter (statuses as of 09/22/2024) Medications CLOBETASOL PROPIONATE 0.05 % EX CREAIndications:Ot [...] s:COPD, group B, by GOLD 2017 classification ([facility]),Moderate persistent asthma with acute exacerbation,COPD exacerbation ([facility]) INHALE 2 PUFFS BY MOUTH EVERY 4 HOURS IF NEEDED 54 g 3 3 Active Spacer/Aero-Holdin g Chambers DeviceIndications: COPD, group B, by GOLD 2017 classification ([facility]),COPD exacerbation ([facility]) Use with inhaler. 1 Each 3 Active Fluticasone Propionate HFA 110 MCG/ACT Inhalation Aerosol (Flovent HFA)Indications:CO PD, group B, by GOLD 2017 classification ([facility]) Inhale 2 Puffs by mouth in the [...] EVERY DAY 90 Tablet 2 3 Active Fexofenadine HCl 180 MG Oral Tablet (Shilpa) TAKE ONE TABLET BY MOUTH EVERY DAY 90 Tablet 3 3 Active DULoxetine HCl 60 MG Oral Capsule Delayed Release Particles (Cymbalta)Indicati ons:Fibromyalgia,G AD (generalized anxiety disorder) TAKE ONE CAPSULE BY MOUTH EVERY MORNING 90 Capsule 3 3 Active Spiriva Respimat 2.5 MCG/ACT Inhalation Aerosol Solution (Tiotropium [place] Monohydrate) INHALE 2 PUFFS BY MOUTH IN [...] hemoglobin A1c goal of less than 7.0% ([facility]) TAKE ONE TABLET BY MOUTH TWICE A DAY(MORNING AND EVENING MEALS) 180 Tablet 3 4 Active Fluticasone Propionate 50 MCG/ACT Nasal Suspension (Flonase)Indicatio ns:COPD, group B, by GOLD 2017 classification ([facility]),Non-seasonal allergic rhinitis due to pollen SPRAY 1 [...] OTHER MEDS. 30 Tablet 3 4 Active documented as of this encounter (statuses as of 09/22/2024) Active Problems Problem Noted Date Diagnosed Date [...] Acquired hypothyroidism Neurogenic bladder Coronary atherosclerosis of [place] coronary shahbaz ry documented as of this encounter (statuses as of 09/22/2024) Resolved Problems Problem Noted Date Diagnosed Date Resolved Date Multiple sclerosis 10/06/2021 2 COPD, mild 08/13/2011 03/21/2020 Overview: Per COPD GOLD Classification Follow-up examination, javier wing other surgery 06/27/2010 05/11/2011 Adrenal disorder 06/27/2010 05/11/2011 Plantar fasciitis 12/13/2019 documented as of this encounter (statuses as of 09/22/2024) Immunizations Name Administration Dates Next Due HEP B - Hepatitis B (Adole/H igh Risk Ped, 11-15 yrs 11/01/2019 Hepatitis B Vaccine 11/14/2020,11/01/2019 Hepatitis B, 20+ yrs 11/14/2020 MMR - Measles/Mumps/Rubella Vaccine 11/01/2019 Pneumococcal Conjugate Vacci ne, 20-valent ([id number]) 10/15/2022 Pneumococcal Polysaccharide PPV23 (Pneumovax) 12/30/2010 Seasonal [...] encounter Miscellaneous Notes * Telephone Encounter - Ciara Null [facility] - 09/22/2024 10:43 AM ESTRefused Prescriptions: Disp Refills Lisinopril 40 MG Oral Tablet 90 Tab*3 Sig: TAKE ONE TABLET BY MOUTH EVERY MORNINGRefused By: Pierre NULL for Refusal: Managed by another physicianReason for Refusal Comment: Sher Hughes Fenofibrate 160 MG Oral Tablet (Lofibra) 90 Tab*0 Sig: TAKE ONE TABLET BY MOUTH EVERY MORNINGRefused By: Pierre NULL for Refusal: Manage d by another physicianReason for Refusal Comment: Sher Hughes documented in this encounter Plan of Treatment [...] Additional history exists CKD PHOS USE SMARTSET 22565 05/06/202404/11, 04/04/2023, 08/22/2021, Additional history exists COVID-19 [...] COPD 01/17/2025 01/18/2024 CKD HGB USE SMARTSET 35479 01/27/202501/27, 12/26/2023, 05/06/2023, Additional history exists TSH 01/27/2025 01/28/2024, 12/09, 05/06/2023, Additional history exists Colonoscopy 05/13/2031 05/13/2021, 04/28/2010 Colorectal Cancer Screening 05/13/2031 Pneumococcal Vaccine: Pediatrics (0 to 5 Years) and At-Risk Patients (6 to 64 Years) Completed 10/15/2022, 12/30/2010 HPV (Gardasil) Vaccine Aged Out No lo nger eligible based on patient's age to complete this topic MENINGOCOCCAL (MENACTRA/MENVEO) Aged Out No longer eligible based on patient's age to complete this topic documented as of this encounter Medical Devices Not on filedocumented as of this encounter Visit Diagnoses Diagnosis HTN, goal below 140/90 Unspecified essential hypertension documented in this encounter Advance Directives * Full Code (Latest Code Status on File) Date Activated Date Inactivated Comments 06/26/2010 2:03 PM 06/27/2010 5:55 PM This order r eflects the patients wishes and were consensually agreed upon. Care Teams Ripper Operator Relationship Specialty Start Date End Date Sher Hughes MD [address] [facility] [place] [address] PCP - General Internal Medicine 08/30/24 documented as of this encounter
--- OUTSIDE RECORDS SUMMARY | 2024-11-01 23:54 | External Medical Summary | Summary of Care ---
Author Name Unknown Organization [facility] Address [address] [place] [address] Phone [phone] Care Team Providers Care Optical Brightener Maker Helper Name Role Phone Sher Hughes MD Primary Care Provider [phone] Reason for Visit * Reason Comments eRx-Medication Refill Encounter Details Date Type Department Care Team (Late st Contact Info) Description 10/24/2024 Refill General Internal Medicine [facility] [address] [facility] [place] [address] Brina Ruth MD [address] [place] [address] Persistent insomnia Allergies Active Allergy Reactions Criticality Noted Date Comments Avonex Prefilled Anaphylaxis High 09/03/2009 Glatiramer Acetate Anaphylaxis High 09/03/2009 Anaph, copaxone, beta interferon 1 Penicillins 05/20/2020 Pt reports yeast infection due to being immunocompromised Sulfa Antibiotics 05/27/2010 Itchy documented as of this encounter (statuses as of 10/25/2024) Medications CLOBETASOL PROPIONATE 0.05 % EX CREAIndications:Ot [...] s:COPD, group B, by GOLD 2017 classification ([facility]),Moderate persistent asthma with acute exacerbation,COPD exacerbation ([facility]) INHALE 2 PUFFS BY MOUTH EVERY 4 HOURS IF NEEDED 54 g 3 3 Active Spacer/Aero-Holdin g Chambers DeviceIndications: COPD, group B, by GOLD 2017 classification ([facility]),COPD exacerbation ([facility]) Use with inhaler. 1 Each 3 Active Fluticasone Propionate HFA 110 MCG/ACT Inhalation Aerosol (Flovent HFA)Indications:CO PD, group B, by GOLD 2017 classification ([facility]) Inhale 2 Puffs by mouth [...] Respimat 2.5 MCG/ACT Inhalation Aerosol Solution (Tiotropium [place] Monohydrate) INHALE 2 PUFFS BY MOUTH IN [...] hemoglobin A1c goal of less than 7.0% ([facility]) TAKE ONE TABLET BY MOUTH TWICE A DAY(MORNING AND EVENING MEALS) 180 Tablet 3 4 Active Fluticasone Propionate 50 MCG/ACT Nasal Suspension (Flonase)Indicatio ns:COPD, group B, by GOLD 2017 classification ([facility]),Non-seasonal allergic rhinitis due to pollen SPRAY 1 [...] as of this encounter (statuses as of 10/25/2024) Active Problems Problem Noted Date Diagnosed Date [...] Acquired hypothyroidism Neurogenic bladder Coronary atherosclerosis of [place] coronary shahbaz ry documented as of this encounter (statuses as of 10/25/2024) Resolved Problems Problem Noted Date Diagnosed Date Resolved Date Multiple sclerosis 10/06/2021 2 COPD, mild 08/13/2011 03/21/2020 Overview: Per COPD GOLD Classification Follow-up examination, javier dawson other surgery 06/27/2010 05/11/2011 Adrenal disorder 06/27/2010 05/11/2011 Plantar fasciitis 12/13/2019 documented as of this encounter (statuses as of 10/25/2024) Immunizations Name Administration Dates Next Due HEP B - Hepatitis B (Adole/H igh Risk Ped, 11-15 yrs 11/01/2019 Hepatitis B Vaccine 11/14/2020,11/01/2019 Hepatitis B, 20+ yrs 11/14/2020 MMR - Measles/Mumps/Rubella Vaccine 11/01/2019 Pneumococcal Conjugate Vacci ne, 20-valent ([id number]) 10/15/2022 Pneumococcal Polysaccharide PPV23 (Pneumovax) 12/30/2010 Seasonal [...] encounter Miscellaneous Notes * Telephone Encounter - Mynor Manzano [facility] - 10/25/2024 6:13 AM ESTRefused Prescriptions: Disp Refills traZODone HCl 100 MG Oral Tablet (Desyrel) 90 Tab*3 Sig: TAKE ONE TABLET BY MOUTH DAILY AT BEDTIMERefused By: MYNOR MANZANO LReason for Refusal: Refill Not AppropriateReason for Refusal Comment: 1 year sent 04/16/24 documented in this encounter Plan of Treatment [...] Additional history exists CKD PHOS USE SMARTSET 54296 05/06/202404/11, 04/04/2023, 08/22/2021, Additional history exists COVID-19 [...] COPD 01/17/2025 01/18/2024 CKD HGB USE SMARTSET 81772 01/27/202501/27, 12/26/2023, 05/06/2023, Additional history exists TSH [...] and were consensually agreed upon. Care Teams Optical Brightener Maker Helper Relationship Specialty Start Date End Date Sher Hughes MD [address] [place] [address] PCP - General Internal Medicine 08/30/24 documented as of this encounter
--- OUTSIDE RECORDS SUMMARY | 2024-11-01 23:54 | External Medical Summary | Summary of Care ---
Author Name Unknown Organization [facility] Address [address] [place] [address] Phone [phone] Care Team Providers Care Health Services Coordinator Name Role Phone Brina Ruth MD Primary Care Provider [phone] Reason for Visit * Reason Comments eRx-Medication Refill Encounter Details Date Type Department Care Team ([facility] st Contact Info) Description 07/29/2024 Refill General Internal Medicine [facility] [address] [place] [address] Brina Ruth MD [address] [place] [address] HTN, goal below 140/90; JINA (generalized anxiety disorder) Allergies Active Allergy Reactions Criticality Noted Date Comments Avonex Prefilled Anaphylaxis High 09/03/2009 Glatiramer Acetate Anaphylaxis High 09/03/2009 Anaph, copaxone, beta interferon 1 Penicillins 05/20/2020 Pt reports yeast infection due to being immunocompromised Sulfa Antibiotics 05/27/2010 Itchy documented as of this encounter (statuses as of 07/31/2024) Medications Medication Sig Dispensed Refills Start Date End Date Status CLOBETASOL PROPIONATE 0.05 % EX CREAIndications:Other psoriasis apply to affected area twice a day for UP TO 2 weeks 15 g 1 11/05/2012 Active nitroglycerin (NITROSTAT) 0.4 MG SUBL One tablet under tongue if needed for chest pain. May repeat 3 times. If chest pain continues, call 911 25 Tab 5 06/04/2020 Active Mupirocin 2 % External Ointment Apply topically to affected area 2 times a day. As directed. 15 g 2 08/28/2020 Active Linzess 145 MCG Oral Capsule Take 1 Capsule by mouth in the morning. 12/06/2020 Active Carvedilol 25 MG Oral Tablet (Coreg) Take 1 Tablet by mouth in the morning and 1 Tablet before bedtime. 06/23/2021 Active Melatonin 10 MG Oral Tablet Take 1 Tablet by mouth in the morning. Active Pantoprazole Sodium 40 MG Oral Tablet Delayed Release (Protonix)Indications :Leach's esophagus with dysplasia TAKE ONE TABLET TWICE A DAY BY MOUTH 30-60 MINUTES BEFORE A MEAL OR AFTER 08/22/2021 Active dilTIAZem HCl ER Coated Beads 120 MG Oral Capsule Extended Release 24 Hour (Cardizem CD)Indications:HTN, goal below 140/90 Take by mouth 2 Capsules in the morning. 30 Capsule 5 02/26/2022 Active Fluocinonide 0.05 % External SolutionIndications:S eborrhea capitis in adult APPLY TOPICALLY TO SCALP DAILY FOR 1 WEEK THEN 1-2 TIMES PER WEEK 60 mL 1 05/18/2022 Active cycloSPORINE 0.05 % Ophthalmic Emulsion Instill 1 Drop into both eyes in the morning and 1 Drop before bedtime. 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 1 Each 10/15/2022 Active Fluticasone Propionate HFA 110 MCG/ACT Inhalation Aerosol (Flovent HFA)Indications:COPD, group B, by GOLD 2017 classification ([facility]) Inhale 2 Puffs by mouth in the morning and 2 Puffs before bedtime. 36 g 3 10/15/2022 Active Isosorbide Mononitrate ER 30 MG Oral Tablet Extended Release 24 Hour (Imdur) Take 1 Tablet by mouth in the morning. 05/06/2023 Active Azithromycin 250 MG Oral Tablet (Zithromax Z-Jose Angel)Indications:Oth er chronic sinusitis Take two tablets by mouth on first day, then 1 tablet daily until gone 6 Tablet 05/06/2023 Active Selenium Sulfide 2.25 % External ShampooIndications:Se borrheic dermatitis Apply to scalp and wash twice a week 180 mL 5 05/13/2023 Active Atorvastatin Calcium 40 MG Oral Tablet (Lipitor) TAKE ONE TABLET BY MOUTH EVERY DAY 90 Tablet 2 08/02/2023 Active Fexofenadine HCl 180 MG Oral Tablet (Shilpa) TAKE ONE TABLET BY MOUTH EVERY DAY 90 Tablet 3 08/14/2023 Active DULoxetine HCl 60 MG Oral Capsule Delayed Release Particles (Cymbalta)Indications :Fibromyalgia,JINA (generalized anxiety disorder) TAKE ONE CAPSULE BY MOUTH EVERY MORNING 90 Capsule 3 10/02/2023 Active Spiriva Respimat 2.5 MCG/ACT Inhalation Aerosol Solution (Tiotropium [place] Monohydrate) INHALE 2 PUFFS BY MOUTH IN THE MORNING 12 g 3 10/02/2023 Active Accu-Chek Nieves Plus w/Device Kit Use to test 4 times daily. 1 Kit 11/02/2023 Active Accu-Chek Nieves Plus In Vitro Strip (Glucose Blood) Use to test 4 times daily. 400 Strip 1 11/02/2023 Active Accu-Chek Softclix Lancets Use to test 4 times daily. 400 Each 1 11/02/2023 Active Alcohol Prep 70 % Pad Use to test 4 times daily. 400 Each 1 11/02/2023 Active Glucose Control In Vitro Solution Use to calibrate meter. 1 Each 5 11/02/2023 Active OneTouch Verio w/Device Kit Use up to 4 times a day E11.9 1 Kit 11/08/2023 Active OneTouch Verio In Vitro Strip (Glucose Blood) Use up to 4 times a day E11.9 100 Strip 11 11/08/2023 Active DULoxetine HCl 30 MG Oral Capsule Delayed Release Particles (Cymbalta)Indications :Persistent insomnia TAKE ONE CAPSULE BY MOUTH EVERY EVENING. DO NOT CUT, CRUSH OR CHEW. 90 Capsule 1 11/09/2023 Active Gabapentin 800 MG Oral Tablet (Neurontin) TAKE TWO TABLETS BY MOUTH EVERY MORNING AND TAKE TWO TABLETS BY MOUTH IN THE AFTERNOON 120 Tablet 11 12/30/2023 Active busPIRone HCl 15 MG Oral Tablet (Buspar)Indications:G AD (generalized anxiety disorder) Take 1 Tablet by mouth in the morning and 1 Tablet before bedtime. 60 Tablet 5 01/18/2024 Active rOPINIRole HCl 0.5 MG Oral Tablet (Requip)Indications:R estless legs syndrome Take 1 Tablet by mouth in the morning and 1 Tablet at noon and 1 Tablet before bedtime. 270 Tablet 3 01/21/2024 Active Furosemide 20 MG Oral Tablet (Lasix) TAKE ONE TABLET BY MOUTH EVERY MORNING 30 Tablet 5 01/29/2024 Active valACYclovir HCl 1 GM Oral Tablet (Valtrex) Take 1 Tablet by mouth daily. (For suppression) 90 Tablet 3 02/24/2024 Active Methocarbamol 750 MG Oral Tablet (Robamol)Indications: HTN, goal below 140/90 TAKE ONE TABLET BY MOUTH THREE TIMES A DAY 270 Tablet 1 03/01/2024 Active Ondansetron HCl 4 MG Oral Tablet (Zofran)Indications:N ausea with vomiting TAKE ONE TABLET BY MOUTH EVERY 8 HOURS NEEDED FOR NAUSEA 270 Tablet 1 03/11/2024 Active FLUoxetine HCl 40 MG Oral Capsule (PROzac)Indications:G eneralized anxiety disorder TAKE ONE CAPSULE BY MOUTH EVERY MORNING 90 Capsule 3 03/15/2024 Active LORazepam 1 MG Oral Tablet (Ativan)Indications:G AD (generalized anxiety disorder),Chronic post-traumatic stress disorder (PTSD),Other insomnia Take 1 Tablet by mouth at bedtime as needed for Anxiety or Sleep. Do not start before April 02, 2024. 30 Tablet 04/02/2024 Active traZODone HCl 100 MG Oral Tablet (Desyrel)Indications: Persistent insomnia Take 1 Tablet by mouth at bedtime. 90 Tablet 3 04/16/2024 Active metFORMIN HCl 1000 MG Oral Tablet (Glucophage)Indicatio ns:Type 2 diabetes mellitus with hemoglobin A1c goal of less than 7.0% (HCC) TAKE ONE TABLET BY MOUTH TWICE A DAY(MORNING AND EVENING MEALS) 180 Tablet 3 04/27/2024 Active Levothyroxine Sodium 150 MCG Oral Tablet (Levoxyl)Indications: Carotid stenosis, asymptomatic, bilateral TAKE ONE TABLET BY MOUTH IN THE MORNING . AT LEAST 30 MINUTES PRIOR TO BREAKFAST OR OTHER MEDS. 30 Tablet 3 04/27/2024 Active Fluticasone Propionate 50 MCG/ACT Nasal Suspension (Flonase)Indications: COPD, group B, by GOLD 2017 classification (HCC),Non-seasonal allergic rhinitis due to pollen SPRAY 1 SPRAY IN EACH NOSTRIL TWICE A DAY 48 g 3 05/10/2024 Active Fenofibrate 160 MG Oral Tablet (Lofibra) TAKE ONE TABLET BY MOUTH EVERY MORNING 90 Tablet 06/07/2024 Active Baclofen 10 MG Oral Tablet (Lioresal)Indications :Fibromyalgia TAKE ONE TABLET BY MOUTH THREE TIMES A DAY NEEDED FOR PAIN 270 Tablet 1 06/09/2024 Active documented as of this encounter (statuses as of 07/31/2024) Active Problems Problem Noted Date Diagnosed Date [...] A1c goal of less than 7.0% 08/13/2011 Overview: ICD-10 update of inactive term Dyslipidemia, goal LDL below 100 08/13/2010 Celiac disease 05/27/2010 Migraine with aura 09/03/2009 Overview: 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 Fibromyalgia Other chronic sinusitis Irritable bowel syndrome Anemia Acquired hypothyroidism Neurogenic bladder Coronary atherosclerosis of [place] coronary shahbaz ry documented as of this encounter (statuses as of 07/31/2024) Resolved Problems Problem Noted Date Diagnosed Date Resolved Date Multiple sclerosis 10/06/2021 2 COPD, mild 08/13/2011 03/21/2020 Overview: Per COPD GOLD Classification Follow-up examination, follo wing other surgery 06/27/2010 05/11/2011 Adrenal disorder 06/27/2010 05/11/2011 Plantar fasciitis 12/13/2019 documented as of this encounter (statuses as of 07/31/2024) Immunizations Name Administration Dates Next Due HEP B - Hepatitis B (Adole/H igh Risk Ped, 11-15 yrs 11/01/2019 Hepatitis B Vaccine 11/14/2020,11/01/2019 Hepatitis B, 20+ yrs 11/14/2020 MMR - Measles/Mumps/Rubella Vaccine 11/01/2019 Pneumococcal Conjugate Vacci ne, 20-valent ([id number]) 10/15/2022 Pneumococcal Polysaccharide PPV23 (Pneumovax) 12/30/2010 Seasonal [...] years and over) Not on file 03/28/2024 Sex and Gender Information Value Date Recorded Sex Assigned at Female 12/13/2019 10:00 AM EST Gender Identity Female 12/13/2019 10:00 AM EST Sexual Orientation Straight 01/17/2024 10 :51 AM EDT Sexual Orientation Choose not to disclose 2023 10:51 AM EDT Job Start Date Occupation Industry Not on file Not on file Not on file documented as of this encounter Miscellaneous Notes * Telephone Encounter - Mckenzie Khan RPh - 07/31/2024 10:38 AM EDT Refused Prescriptions: Disp Refills Lisinopril 40 MG Oral Tablet 90 Tab*3 Sig: TAKE ONE TABLET BY MOUTH EVERY MORNINGRefused By: MCKENZIE KHAN for Refusal: Managed by another physician busPIRone HCl 15 MG Oral Tablet (Buspar) 60 Tab*5 Sig: TAKE ONE TABLET BY MOUTH IN THE MORNING , AND TAKE ONE TABLET BY MOUTH BEFORE BEDTIMERefused By: MCKENZIE KHAN for Refusal: Managed by another physician * Telephone Encounter - Mckenzie Khan RPh - 07/31/2024 10:35 AM EDT Brina Ruth MD 06/28/24 1:11 PM Note Pt was supposed to see psychiatrist and get establish with new PCP locally due to her insurance notcovering Evgen . If she was already seen providers ask her to send refill to one of them and update PCP Thank you, Mckenzie Khan, PharmD Clinical Pharmacist [facility] ([facility]) [phone] 07/31/2024, 10:38 AM documented in this encounter Plan of Treatment [...] Additional history exists CKD PHOS USE SMARTSET 92292 05/06/2024 0704/2023, 04/04/2023, 08/22/2021, Additional history exists COVID-19 Vaccine ( - 2023- season) 2024 Influenza Vaccine (FLU shot) (#1) 2024 10/15/2022, 08/04/2021, 08/13/2020, Additional history exists GFR 07/29/2024 01/28/2024, 12/09, 05/06/2023, Additional history exists HbA1c 07/29/2024 01/28/2024, 06/2 02/2023, 04/04/2023, Additional history exists Diabetic Foot Exam 01/17/2025 01/18/2024, 0 10/15/2022, 11/14/2020, Additional history exists O2 ASSESSMENT COMPLETED IN PAST YEAR FOR COPD 01/17/2025 01/18/2024 CKD HGB USE SMARTSET 37076 01/27/202501/27, 12/26/2023, 05/06/2023, Additional history exists TSH [...] HTN, goal below 140/90 Unspecified essential hypertension JINA (generalized anxiety disorder) Generalized anxiety disorder documented in this encounter Advance Directives * Full Code (Latest Code Status on File) Date Activated Date Inactivated Comments 06/26/2010 2:03 PM 06/27/2010 5:55 PM This order r eflects the patients wishes and were consensually agreed upon. Care Teams Health Services Coordinator Relationship Specialty Start Date End Date Brina Ruth MD [address] [facility] [address] PCP - General Internal Medicine 02/19/20 documented as of this encounter
--- OUTSIDE RECORDS SUMMARY | 2024-11-01 23:54 | External Medical Summary | Summary of Care ---
Author Name Unknown Organization [facility] Address [address] [place] [address] Phone [phone] Care Team Providers Care Venue Manager Name Role Phone Sher Hughes MD Primary Care Provider [phone] Reason for Visit * Reason Comments eRx-Medication Refill Encounter Details Date Type Department Care Team (Late st Contact Info) Description 08/28/2024 Refill General Internal Medicine [facility] [address] [place] [address] Brina Ruth MD [address] [place] [address] HTN, goal below 140/90 Allergies Active Allergy Reactions Criticality Noted Date Comments Avonex Prefilled Anaphylaxis High 09/03/2009 Glatiramer Acetate Anaphylaxis High 09/03/2009 Anaph, copaxone, beta interferon 1 Penicillins 05/20/2020 Pt reports yeast infection due to being immunocompromised Sulfa Antibiotics 05/27/2010 Itchy documented as of this encounter (statuses as of 08/30/2024) Medications CLOBETASOL PROPIONATE 0.05 % EX CREAIndications:Ot [...] s:COPD, group B, by GOLD 2017 classification ([facility]),Moderate persistent asthma with acute exacerbation,COPD exacerbation ([facility]) INHALE 2 PUFFS BY MOUTH EVERY 4 HOURS IF NEEDED 54 g 3 3 Active Spacer/Aero-Holdin g Chambers DeviceIndications: COPD, group B, by GOLD 2017 classification ([facility]),COPD exacerbation ([facility]) Use with inhaler. 1 Each 3 Active Fluticasone Propionate HFA 110 MCG/ACT Inhalation Aerosol (Flovent HFA)Indications:CO PD, group B, by GOLD 2017 classification ([facility]) Inhale 2 Puffs by mouth in [...] Respimat 2.5 MCG/ACT Inhalation Aerosol Solution (Tiotropium [employer] Monohydrate) INHALE 2 PUFFS BY MOUTH IN [...] as of this encounter (statuses as of 08/30/2024) Active Problems Problem Noted Date Diagnosed Date [...] Acquired hypothyroidism Neurogenic bladder Coronary atherosclerosis of [place] coronary shahbaz ry documented as of this encounter (statuses as of 08/30/2024) Resolved Problems Problem Noted Date Diagnosed Date Resolved Date Multiple sclerosis 10/06/2021 2 COPD, mild 08/13/2011 03/21/2020 Overview: Per COPD GOLD Classification Follow-up examination, javier wing other surgery 06/27/2010 05/11/2011 Adrenal disorder 06/27/2010 05/11/2011 Plantar fasciitis 12/13/2019 documented as of this encounter (statuses as of 08/30/2024) Immunizations Name Administration Dates Next Due HEP B - Hepatitis B (Adole/H igh Risk Ped, 11-15 yrs 11/01/2019 Hepatitis B Vaccine 11/14/2020,11/01/2019 Hepatitis B, 20+ yrs 11/14/2020 MMR - Measles/Mumps/Rubella Vaccine 11/01/2019 Pneumococcal Conjugate Vacci ne, 20-valent ([id number]) 10/15/2022 Pneumococcal Polysaccharide PPV23 (Pneumovax) 12/30/2010 Seasonal [...] encounter Miscellaneous Notes * Telephone Encounter - Shannan Edwards [facility] - 08/30/2024 8:52 AM EST Spoke to daughter. Updated record with new PCP. Thank you, Shannan Edwards, PharmD Clinical Pharmacist [facility] ([facility]) 08/30/24 8:52 AM [phone] * Telephone Encounter - Brina Ruth MD - 08/29/2024 3:17 PM ESTPending Prescriptions: Disp Refills Methocarbamol 750 MG Oral Tablet [Pharmacy*270 Ta*1 Sig: TAKE ONE TABLET BY MOUTH THREE TIMES A DAY * Telephone Encounter - Brina Ruth MD - 08/29/2024 3:15 PM EST Pt should have a new PCP per her insurance coverage Please ask patient to contact her or him and also update in epic * Telephone Encounter - Shannan Edwards [facility] - 08/29/2024 12:39 PM ESTPending Prescriptions: Disp Refills Methocarbamol 750 MG Oral Tablet [Pharmacy*270 Ta*1 Sig: TAKE ONE TABLET BY MOUTH THREE TIMES A DAY * Telephone Encounter - Shannan Edwards [facility] - 08/29/2024 12:39 PM EST [facility] is currently not authorized to approve refills for the pended medication(s) per refill protocol. Please approve if appropriate. Thanks, Shannan Edwards, PharmD Clinical Pharmacist [facility] ([facility]) 08/29/24 12:39 PM [phone] documented in this encounter Plan of Treatment [...] Additional history exists CKD PHOS USE SMARTSET 66247 05/06/202404/11, 04/04/2023, 08/22/2021, Additional history exists COVID-19 [...] COPD 01/17/2025 01/18/2024 CKD HGB USE SMARTSET 07684 01/27/202501/27, 12/26/2023, 05/06/2023, Additional history exists TSH [...] and were consensually agreed upon. Care Teams Venue Manager Relationship Specialty Start Date End Date Sher Hughes MD [address] [place] [address] PCP - General Internal Medicine 08/30/24 documented as of this encounter
--- OUTSIDE RECORDS SUMMARY | 2024-11-01 23:54 | External Medical Summary | Summary of Care ---
Author Name Unknown Organization [facility] Address [address] [place] [address] Phone [phone] Care Team Providers Care Tool Design Draftsperson Name Role Phone Sher Hughes MD Primary Care Provider [phone] Reason for Visit * Reason Comments eRx-Medication Refill Encounter Details Date Type Department Care Team (Late st Contact Info) Description 08/28/2024 Refill General Internal Medicine [facility] [address] [facility] [place] [address] Brina Ruth MD [address] [place] [address] HTN, goal below 140/90 Allergies Active Allergy [...] B, by GOLD 2017 classification ([facility]),Moderate persistent asthma with acute exacerbation,COPD exacerbation ([facility]) INHALE 2 PUFFS BY MOUTH EVERY 4 HOURS IF NEEDED 54 g 3 3 Active Spacer/Aero-Holdin g Chambers DeviceIndications: COPD, group B, by GOLD 2017 classification ([facility]),COPD exacerbation ([facility]) Use with inhaler. 1 Each 3 Active Fluticasone Propionate HFA 110 MCG/ACT Inhalation Aerosol (Flovent HFA)Indications:CO PD, group B, by GOLD 2017 classification ([facility]) Inhale 2 Puffs by mouth in the [...] Respimat 2.5 MCG/ACT Inhalation Aerosol Solution (Tiotropium [place] Monohydrate) INHALE 2 PUFFS BY MOUTH IN [...] Acquired hypothyroidism Neurogenic bladder Coronary atherosclerosis of [place] coronary shahbaz ry documented as of this [...] Vaccine 11/01/2019 Pneumococcal Conjugate Vacci ne, 20-valent ([id number]) 10/15/2022 Pneumococcal Polysaccharide PPV23 (Pneumovax) 12/30/2010 Seasonal [...] encounter Miscellaneous Notes * Telephone Encounter - Marj Corrales [facility] - 08/30/2024 3:42 PM ESTRefused Prescriptions: Disp Refills Methocarbamol 750 MG Oral Tablet (Robamol) 270 Ta*1 Sig: TAKE ONE TABLET BY MOUTH THREE TIMES A DAYRefused By: KASANDRA EDWARDS [facility] for Refusal: Managed by another physician * Telephone Encounter - Kasandra Edwards [facility] - 08/30/2024 8:52 AM EST Spoke to daughter. Updated record with new PCP. Thank you, Kasandra Edwards, PharmD Clinical Pharmacist [facility] ([facility]) 08/30/24 8:52 AM [phone] * Telephone Encounter - Brina Ruth MD [...] update in epic * Telephone Encounter - Kasandra Edwards [facility] - 08/29/2024 12:39 PM ESTPending Prescriptions: Disp Refills Methocarbamol 750 MG Oral Tablet [Pharmacy*270 Ta*1 Sig: TAKE ONE TABLET BY MOUTH THREE TIMES A DAY * Telephone Encounter - Kasandra Edwards [facility] - 08/29/2024 12:39 PM EST [facility] is currently not authorized to approve refills for the pended medication(s) per refill protocol. Please approve if appropriate. Thanks, Kasandra Edwards, PharmD Clinical Pharmacist [facility] ([facility]) 08/29/24 12:39 PM [phone] documented in this encounter Plan of Treatment [...] Additional history exists CKD PHOS USE SMARTSET 73100 05/06/202404/11, 04/04/2023, 08/22/2021, Additional history exists COVID-19 [...] COPD 01/17/2025 01/18/2024 CKD HGB USE SMARTSET 13814 01/27/202501/27, 12/26/2023, 05/06/2023, Additional history exists TSH [...] and were consensually agreed upon. Care Teams Tool Design Draftsperson Relationship Specialty Start Date End Date Sher Hughes MD [address] [place] [address] PCP - General Internal Medicine 08/30/24 documented as of this encounter
--- OUTSIDE RECORDS SUMMARY | 2024-11-01 23:54 | External Medical Summary | Summary of Care ---
Author Name Unknown Organization [facility] Address [address] [place] [address] Phone [phone] Care Team Providers Care Beverage Sales Consultant Name Role Phone Brina Ruth MD Primary Care Provider [phone] Reason for Visit * Reason Comments eRx-Medication Refill Encounter Details Date Type Department Care Team ([facility] st Contact Info) Description 08/14/2024 Refill General Internal Medicine [facility] [address] [facility] [place] [address] Brina Ruth MD [address] [place] [address] Persistent insomnia Allergies Active Allergy Reactions Criticality Noted Date Comments Avonex Prefilled Anaphylaxis High 09/03/2009 Glatiramer Acetate Anaphylaxis High 09/03/2009 Anaph, copaxone, beta interferon 1 Penicillins 05/20/2020 Pt reports yeast infection due to being immunocompromised Sulfa Antibiotics 05/27/2010 Itchy documented as of this encounter (statuses as of 08/15/2024) Medications Medication Sig Dispensed Refills Start Date End Date Status CLOBETASOL PROPIONATE 0.05 % EX CREAIndications:Other psoriasis apply to affected area twice a day for UP TO 2 weeks 15 g 1 11/05/2012 Active nitroglycerin (NITROSTAT) 0.4 MG SUBL One tablet under tongue if needed for chest pain. May repeat 3 times. If chest pain continues, call [phone] Tab 5 06/04/2020 Active Mupirocin 2 % [...] B, by GOLD 2017 classification ([facility]),Moderate persistent asthma with acute exacerbation,COPD exacerbation ([facility]) INHALE 2 PUFFS BY MOUTH EVERY 4 HOURS IF NEEDED 54 g 3 10/15/2022 Active Spacer/Aero-Holding Chambers DeviceIndications:LICENSE INSPECTOR D, group B, by GOLD 2017 classification ([facility]),COPD exacerbation ([facility]) Use with inhaler. 1 Each 10/15/2022 Active Fluticasone Propionate HFA 110 MCG/ACT Inhalation Aerosol (Flovent HFA)Indications:COPD, group B, by GOLD 2017 classification ([facility]) Inhale 2 Puffs by mouth [...] Respimat 2.5 MCG/ACT Inhalation Aerosol Solution (Tiotropium [place] Monohydrate) INHALE 2 PUFFS BY MOUTH IN [...] as of this encounter (statuses as of 08/15/2024) Active Problems Problem Noted Date Diagnosed Date [...] Acquired hypothyroidism Neurogenic bladder Coronary atherosclerosis of [place] coronary shahbaz ry documented as of this encounter (statuses as of 08/15/2024) Resolved Problems Problem Noted Date Diagnosed Date Resolved Date Multiple sclerosis 10/06/2021 2 COPD, mild 08/13/2011 03/21/2020 Overview: Per COPD GOLD Classification Follow-up examination, follo wing other surgery 06/27/2010 05/11/2011 Adrenal disorder 06/27/2010 05/11/2011 Plantar fasciitis 12/13/2019 documented as of this encounter (statuses as of 08/15/2024) Immunizations Name Administration Dates Next Due HEP B - Hepatitis B (Adole/H igh Risk Ped, 11-15 yrs 11/01/2019 Hepatitis B Vaccine 11/14/2020,11/01/2019 Hepatitis B, 20+ yrs 11/14/2020 MMR - Measles/Mumps/Rubella Vaccine 11/01/2019 Pneumococcal Conjugate Vacci ne, 20-valent ([id number]) 10/15/2022 Pneumococcal Polysaccharide PPV23 (Pneumovax) 12/30/2010 Seasonal [...] encounter Miscellaneous Notes * Telephone Encounter - Rojas Ortiz RPh - 08/15/2024 5:27 PM EST Refused Prescriptions: Disp Refills traZODone HCl 100 MG Oral Tablet (Desyrel) 90 Tab*3 Sig: TAKE ONE TABLET BY MOUTH AT BEDTIMERefused By: ROJAS ORTIZ for Refusal: Too soon documented in this [...] Additional history exists CKD PHOS USE SMARTSET 73848 05/06/202404/11, 04/04/2023, 08/22/2021, Additional history exists COVID-19 [...] COPD 01/17/2025 01/18/2024 CKD HGB USE SMARTSET 55553 01/27/202501/27, 12/26/2023, 05/06/2023, Additional history exists TSH [...] and were consensually agreed upon. Care Teams Beverage Sales Consultant Relationship Specialty Start Date End Date Brina Ruth MD [address] [place] [address] PCP - General Internal Medicine 02/19/20 documented as of this encounter
--- OUTSIDE RECORDS SUMMARY | 2024-11-01 23:54 | External Medical Summary | Summary of Care ---
Author Name Unknown Organization [facility] Address [address] [place] [address] Phone [phone] Care Team Providers Care Submarine Advisory Team Watch Officer Name Role Phone Brina Ruth MD Primary Care Provider [phone] Reason for Visit * Reason Comments eRx-Medication Refill Encounter Details Date Type Department Care Team ([facility] st Contact Info) Description 07/26/2024 Refill General Internal Medicine [facility] [address] [facility] [place] [address] Brina Ruth MD [address] [place] [address] HTN, goal below 140/90 Allergies Active Allergy Reactions Criticality Noted Date Comments Avonex Prefilled Anaphylaxis High 09/03/2009 Glatiramer Acetate Anaphylaxis High 09/03/2009 Anaph, copaxone, beta interferon 1 Penicillins 05/20/2020 Pt reports yeast infection due to being immunocompromised Sulfa Antibiotics 05/27/2010 Itchy documented as of this encounter (statuses as of 07/27/2024) Medications Medication Sig Dispensed Refills Start Date [...] OPD, group B, by GOLD 2017 classification ([facility]),Moderate persistent asthma with acute exacerbation,COPD exacerbation ([facility]) INHALE 2 PUFFS BY MOUTH EVERY 4 HOURS IF NEEDED 54 g 3 10/15/2022 Active Spacer/Aero-Holding Chambers DeviceIndications:BOBBIN STRIPPER D, group B, by GOLD 2017 classification ([facility]),COPD exacerbation ([facility]) Use with inhaler. 1 Each 10/15/2022 Active Fluticasone Propionate HFA 110 MCG/ACT Inhalation Aerosol (Flovent HFA)Indications:COPD, group B, by GOLD 2017 classification ([facility]) Inhale 2 Puffs by mouth in [...] Respimat 2.5 MCG/ACT Inhalation Aerosol Solution (Tiotropium [place] Monohydrate) INHALE 2 PUFFS BY MOUTH IN [...] as of this encounter (statuses as of 07/27/2024) Active Problems Problem Noted Date Diagnosed Date [...] Acquired hypothyroidism Neurogenic bladder Coronary atherosclerosis of [place] coronary shahbaz ry documented as of this encounter (statuses as of 07/27/2024) Resolved Problems Problem Noted Date Diagnosed Date Resolved Date Multiple sclerosis 10/06/2021 2 COPD, mild 08/13/2011 03/21/2020 Overview: Per COPD GOLD Classification Follow-up examination, follo wing other surgery 06/27/2010 05/11/2011 Adrenal disorder 06/27/2010 05/11/2011 Plantar fasciitis 12/13/2019 documented as of this encounter (statuses as of 07/27/2024) Immunizations Name Administration Dates Next Due HEP B - Hepatitis B (Adole/H igh Risk Ped, 11-15 yrs 11/01/2019 Hepatitis B Vaccine 11/14/2020,11/01/2019 Hepatitis B, 20+ yrs 11/14/2020 MMR - Measles/Mumps/Rubella Vaccine 11/01/2019 Pneumococcal Conjugate Vacci ne, 20-valent ([id number]) 10/15/2022 Pneumococcal Polysaccharide PPV23 (Pneumovax) 12/30/2010 Seasonal [...] Telephone Encounter - Sena Chilel RPh - 07/27/2024 12:44 PM EDTRefused Prescriptions: Disp Refills Lisinopril 40 MG Oral Tablet 90 Tab*3 Sig: TAKE ONE TABLET BY MOUTH EVERY MORNINGRefused By: SENA CHILEL for Refusal: Refill Not Appropriate documented in this encounter Plan of Treatment [...] Additional history exists CKD PHOS USE SMARTSET 00572 05/06/202404/11, 04/04/2023, 08/22/2021, Additional history exists COVID-19 [...] COPD 01/17/2025 01/18/2024 CKD HGB USE SMARTSET 98398 01/27/202501/27, 12/26/2023, 05/06/2023, Additional history exists TSH [...] and were consensually agreed upon. Care Teams Submarine Advisory Team Watch Officer Relationship Specialty Start Date End Date Brina Ruth MD [address] [place] [address] PCP - General Internal Medicine 02/19/20 documented as of this encounter
--- OUTSIDE RECORDS SUMMARY | 2024-11-01 23:54 | External Medical Summary | Summary of Care ---
Author Name Unknown Organization [facility] Address [address] [place] [address] Phone [phone] Care Team Providers Care Health Services Information Specialist Name Role Phone Brina Ruth MD Primary Care Provider Reason for Visit * Reason Comments eRx-Medication Refill Encounter Details Date Type Department Care Team (Late st Contact Info) Description 08/25/2024 Refill General Internal Medicine [facility] [address] [facility] [place] [address] Brina Ruth MD [address] [place] [address] Carotid stenosis, asymptomatic, bilateral Allergies Active Allergy Reactions Criticality Noted Date Comments Avonex Prefilled Anaphylaxis High 09/03/2009 Glatiramer Acetate Anaphylaxis High 09/03/2009 Anaph, copaxone, beta interferon 1 Penicillins 05/20/2020 Pt reports yeast infection due to being immunocompromised Sulfa Antibiotics 05/27/2010 Itchy documented as of this encounter (statuses as of 08/25/2024) Medications CLOBETASOL PROPIONATE 0.05 % EX CREAIndications:O [...] ns:COPD, group B, by GOLD 2017 classification ([facility]),Moderate persistent asthma with acute exacerbation,COPD exacerbation ([facility]) INHALE 2 PUFFS BY MOUTH EVERY 4 HOURS IF NEEDED 54 g 3 10/15/19 23 Active Spacer/Aero-Holdi ng Chambers DeviceIndications :COPD, group B, by GOLD 2017 classification ([facility]),COPD exacerbation ([facility]) Use with inhaler. 1 Each 10/15/19 23 Active Fluticasone Propionate HFA 110 MCG/ACT Inhalation Aerosol (Flovent HFA)Indications:C OPD, group B, by GOLD 2017 classification ([facility]) Inhale 2 Puffs by mouth in the morning and 2 Puffs before bedtime. 36 g 3 10/15/19 Active Isosorbide Mononitrate ER 30 MG Oral [...] MOUTH EVERY DAY 90 Tablet 2 08/02/20 23 Active Fexofenadine HCl 180 MG Oral Tablet (Shilpa) TAKE ONE TABLET BY MOUTH EVERY DAY 90 Tablet 3 08/14/20 23 Active DULoxetine HCl 60 MG Oral Capsule Delayed Release Particles (Cymbalta)Indicat ions:Fibromyalgia ,JINA (generalized anxiety disorder) TAKE ONE CAPSULE BY MOUTH EVERY MORNING 90 Capsule 3 10/02/20 Active Spiriva Respimat 2.5 MCG/ACT Inhalation Aerosol Solution (Tiotropium [place] Monohydrate) INHALE 2 PUFFS BY MOUTH IN THE MORNING 12 g 3 10/02/20 Active Accu-Chek Nieves Plus w/Device Kit Use to test 4 times daily. 1 Kit 11/02/19 Active Accu-Chek Nieves Plus In Vitro Strip (Glucose Blood) Use to test 4 times daily. 400 Strip 1 11/02/19 Active Accu-Chek Softclix Lancets Use to test 4 times daily. 400 Each 1 11/02/19 24 Active Alcohol Prep 70 % Pad Use to test 4 times daily. 400 Each 1 11/02/19 24 Active Glucose Control In Vitro Solution Use to calibrate meter. 1 Each 5 11/02/19 24 Active OneTouch Verio w/Device Kit Use up to 4 times a day E11.9 1 Kit 11/08/19 24 Active OneTouch Verio In Vitro Strip (Glucose Blood) Use up to 4 times a day E11.9 100 Strip 11 11/08/19 24 Active DULoxetine HCl 30 MG Oral Capsule [...] ons:COPD, group B, by GOLD 2017 classification ([facility]),Non-seasona l allergic rhinitis due to pollen SPRAY [...] MEDS. 30 Tablet 3 08/25/20 24 Active Levothyroxine Sodium 150 MCG Oral Tablet (Levoxyl)Indicati ons:Carotid stenosis, asymptomatic, bilateral TAKE ONE TABLET BY MOUTH IN THE MORNING . AT LEAST 30 MINUTES PRIOR TO BREAKFAST OR OTHER MEDS. 30 Tablet 3 04/27/20 24 024 Discontinued documented as of this encounter (statuses as of 08/25/2024) Active Problems Problem Noted Date Diagnosed Date [...] Acquired hypothyroidism Neurogenic bladder Coronary atherosclerosis of [place] coronary shahbaz ry documented as of this encounter (statuses as of 08/25/2024) Resolved Problems Problem Noted Date Diagnosed Date Resolved Date Multiple sclerosis 10/06/2021 2 COPD, mild 08/13/2011 03/21/2020 Overview: Per COPD GOLD Classification Follow-up examination, follo wing other surgery 06/27/2010 05/11/2011 Adrenal disorder 06/27/2010 05/11/2011 Plantar fasciitis 12/13/2019 documented as of this encounter (statuses as of 08/25/2024) Immunizations Name Administration Dates Next Due HEP B - Hepatitis B (Adole/H igh Risk Ped, 11-15 yrs 11/01/2019 Hepatitis B Vaccine 11/14/2020,11/01/2019 Hepatitis B, 20+ yrs 11/14/2020 MMR - Measles/Mumps/Rubella Vaccine 11/01/2019 Pneumococcal Conjugate Vacci ne, 20-valent ([id number]) 10/15/2022 Pneumococcal Polysaccharide PPV23 (Pneumovax) 12/30/2010 Seasonal [...] encounter Miscellaneous Notes * Telephone Encounter - Carole [facility] - 08/25/2024 7:26 PM ESTSigned Prescriptions: Disp Refills Levothyroxine Sodium 150 MCG Oral Tablet (*30 Tab*3 Sig: TAKE ONE TABLET BY MOUTH IN THE MORNING . AT LEAST 30 MINUTES PRIOR TO BREAKFAST OR OTHER MEDS.Authorizing Provider: Sp RUTH User: CAROLE WILL documented in this encounter Plan of Treatment [...] Additional history exists CKD PHOS USE SMARTSET 64184 05/06/202404/11, 04/04/2023, 08/22/2021, Additional history exists COVID-19 [...] COPD 01/17/2025 01/18/2024 CKD HGB USE SMARTSET 94294 01/27/202501/27, 12/26/2023, 05/06/2023, Additional history exists TSH [...] as of this encounter Visit Diagnoses Diagnosis Carotid stenosis, asymptomatic, bilateral documented in this encounter Advance Directives * Full Code (Latest Code Status on File) Date Activated Date Inactivated Comments 06/26/2010 2:03 PM 06/27/2010 5:55 PM This order r eflects the patients wishes and were consensually agreed upon. Care Teams Health Services Information Specialist Relationship Specialty Start Date End Date Brina Ruth MD [address] [facility] [place] [address] PCP - General Internal Medicine 02/19/20 documented as of this encounter
--- OUTSIDE RECORDS SUMMARY | 2024-11-01 23:54 | External Medical Summary | Summary of Care ---
Author Name Unknown Organization [facility] Address [address] [place] [address] Phone [phone] Care Team Providers Care Food Service Attendant Name Role Phone Brina Ruth MD Primary Care Provider [phone] Reason for Visit * Reason Onset Date Comments Pre Cert/Prior Auth 04/17/2024 Encounter Details Date Type Department Care Team (Late st Contact Info) Description 04/17/2024 Telephone General Internal Medicine [facility] [address] [place] [address] Brina Ruth MD [address] [place] [address] Pre Cert/Prior Auth Allergies Active Allergy Reactions Criticality Noted Date Comments Avonex Prefilled Anaphylaxis High 09/03/2009 Glatiramer Acetate Anaphylaxis High 09/03/2009 Anaph, copaxone, beta interferon 1 Penicillins 05/20/2020 Pt reports yeast infection due to being immunocompromised Sulfa Antibiotics 05/27/2010 Itchy documented as of this encounter (statuses as of 07/17/2024) Medications Medication Sig Dispensed Refills Start Date [...] OPD, group B, by GOLD 2017 classification ([facility]),Moderate persistent asthma with acute exacerbation,COPD exacerbation ([facility]) INHALE 2 PUFFS BY MOUTH EVERY 4 HOURS IF NEEDED 54 g 3 10/15/2022 Active Spacer/Aero-Holding Chambers DeviceIndications:SUPERVISOR CEREAL D, group B, by GOLD 2017 classification ([facility]),COPD exacerbation ([facility]) Use with inhaler. 1 Each 10/15/2022 Active Fluticasone Propionate HFA 110 MCG/ACT Inhalation Aerosol (Flovent HFA)Indications:COPD, group B, by GOLD 2017 classification ([facility]) Inhale 2 Puffs by mouth in the [...] Respimat 2.5 MCG/ACT Inhalation Aerosol Solution (Tiotropium [place] Monohydrate) INHALE 2 PUFFS BY MOUTH IN [...] at bedtime. 90 Tablet 3 04/16/2024 Active documented as of this encounter (statuses as of 07/17/2024) Active Problems Problem Noted Date Diagnosed Date [...] Acquired hypothyroidism Neurogenic bladder Coronary atherosclerosis of [place] coronary shahbaz ry documented as of this encounter (statuses as of 07/17/2024) Resolved Problems Problem Noted Date Diagnosed Date Resolved Date Multiple sclerosis 10/06/2021 2 COPD, mild 08/13/2011 03/21/2020 Overview: Per COPD GOLD Classification Follow-up examination, follo wing other surgery 06/27/2010 05/11/2011 Adrenal disorder 06/27/2010 05/11/2011 Plantar fasciitis 12/13/2019 documented as of this encounter (statuses as of 07/17/2024) Immunizations Name Administration Dates Next Due HEP B - Hepatitis B (Adole/H igh Risk Ped, 11-15 yrs 11/01/2019 Hepatitis B Vaccine 11/14/2020,11/01/2019 Hepatitis B, 20+ yrs 11/14/2020 MMR - Measles/Mumps/Rubella Vaccine 11/01/2019 Pneumococcal Conjugate Vacci ne, 20-valent ([id number]) 10/15/2022 Pneumococcal Polysaccharide PPV23 (Pneumovax) 12/30/2010 Seasonal [...] encounter Miscellaneous Notes * Telephone Encounter - Blessing Alba LPN - 04/17/2024 11:04 AM EDT Prior auth for Methocarbamol completed in [facility] Santos: [id number]) documented in this encounter Plan of Treatment [...] Additional history exists CKD PHOS USE SMARTSET 35618 05/06/202404/11, 04/04/2023, 08/22/2021, Additional history exists COVID-19 [...] COPD 01/17/2025 01/18/2024 CKD HGB USE SMARTSET 53660 01/27/202501/27, 12/26/2023, 05/06/2023, Additional history exists TSH [...] and were consensually agreed upon. Care Teams Food Service Attendant Relationship Specialty Start Date End Date Brina Ruth MD [address] [place] [address] PCP - General Internal Medicine 02/19/20 documented as of this encounter
--- OUTSIDE RECORDS SUMMARY | 2024-11-01 23:54 | External Medical Summary | Summary of Care ---
Author Name Unknown Organization [facility] Address [address] [place] [address] Phone [phone] Care Team Providers Care First Front Ventilator Name Role Phone Sher Hughes MD Primary Care Provider [phone] Reason for Visit * Reason Comments eRx-Medication Refill Encounter Details Date Type Department Care Team (Late st Contact Info) Description 08/31/2024 Refill General Internal Medicine [facility] [address] [place] [address] Brina Ruth MD [address] [place] [address] Allergies Active Allergy Reactions Criticality Noted Date Comments Avonex Prefilled Anaphylaxis High 09/03/2009 Glatiramer Acetate Anaphylaxis High 09/03/2009 Anaph, copaxone, beta interferon 1 Penicillins 05/20/2020 Pt reports yeast infection due to being immunocompromised Sulfa Antibiotics 05/27/2010 Itchy documented as of this encounter (statuses as of 09/01/2024) Medications CLOBETASOL PROPIONATE 0.05 % EX CREAIndications:Ot [...] s:COPD, group B, by GOLD 2017 classification ([facility]),Moderate persistent asthma with acute exacerbation,COPD exacerbation ([facility]) INHALE 2 PUFFS BY MOUTH EVERY 4 HOURS IF NEEDED 54 g 3 3 Active Spacer/Aero-Holdin g Chambers DeviceIndications: COPD, group B, by GOLD 2017 classification ([facility]),COPD exacerbation ([facility]) Use with inhaler. 1 Each 3 Active Fluticasone Propionate HFA 110 MCG/ACT Inhalation Aerosol (Flovent HFA)Indications:[place] PD, group B, by GOLD 2017 classification ([facility]) Inhale 2 Puffs by mouth [...] Respimat 2.5 MCG/ACT Inhalation Aerosol Solution (Tiotropium [place] Monohydrate) INHALE 2 PUFFS BY MOUTH IN [...] hemoglobin A1c goal of less than 7.0% ([facility]) TAKE ONE TABLET BY MOUTH [...] as of this encounter (statuses as of 09/01/2024) Active Problems Problem Noted Date Diagnosed Date [...] Acquired hypothyroidism Neurogenic bladder Coronary atherosclerosis of [place] coronary shahbaz ry documented as of this encounter (statuses as of 09/01/2024) Resolved Problems Problem Noted Date Diagnosed Date Resolved Date Multiple sclerosis 10/06/2021 2 COPD, mild 08/13/2011 03/21/2020 Overview: Per COPD GOLD Classification Follow-up examination, follo wing other surgery 06/27/2010 05/11/2011 Adrenal disorder 06/27/2010 05/11/2011 Plantar fasciitis 12/13/2019 documented as of this encounter (statuses as of 09/01/2024) Immunizations Name Administration Dates Next Due HEP B - Hepatitis B (Adole/H igh Risk Ped, 11-15 yrs 11/01/2019 Hepatitis B Vaccine 11/14/2020,11/01/2019 Hepatitis B, 20+ yrs 11/14/2020 MMR - Measles/Mumps/Rubella Vaccine 11/01/2019 Pneumococcal Conjugate Vacci ne, 20-valent ([id number]) 10/15/2022 Pneumococcal Polysaccharide PPV23 (Pneumovax) 12/30/2010 Seasonal [...] Telephone Encounter - Sena Chilel RPh - 09/01/2024 9:18 AM ESTRefused Prescriptions: Disp Refills Fenofibrate 160 MG Oral Tablet (Lofibra) 90 Tab*0 Sig: TAKE ONE TABLET BY MOUTH EVERY MORNINGRefused By: SENA CHILEL for Refusal: Managed by another denia estrada documented in this encounter Plan of Treatment [...] Additional history exists CKD PHOS USE SMARTSET 36066 05/06/202404/11, 04/04/2023, 08/22/2021, Additional history exists COVID-19 [...] COPD 01/17/2025 01/18/2024 CKD HGB USE SMARTSET 82120 01/27/202501/27, 12/26/2023, 05/06/2023, Additional history exists TSH [...] and were consensually agreed upon. Care Teams First Front Ventilator Relationship Specialty Start Date End Date Sher Hughes MD [address] [place] [address] PCP - General Internal Medicine 08/30/24 documented as of this encounter
--- OUTSIDE RECORDS SUMMARY | 2024-11-01 23:55 | External Medical Summary | Summary of Care ---
Author Name Unknown Organization [facility] Address [address] [place] [address] Phone [phone] Care Team Providers Care Electromechanisms Design Drafter Name Role Phone Brina Ruth MD Primary Care Provider Reason for Visit * Reason Comments eRx-Medication Refill Encounter Details Date Type Department Care Team ([facility] st Contact Info) Description 06/26/2024 Refill General Internal Medicine [facility] [address] [facility] [place] [address] Brina Ruth MD [address] [place] [address] JINA (generalized anxiety disorder) Allergies Active Allergy Reactions Criticality Noted Date Comments Avonex Prefilled Anaphylaxis High 09/03/2009 Glatiramer Acetate Anaphylaxis High 09/03/2009 Anaph, copaxone, beta interferon 1 Penicillins 05/20/2020 Pt reports yeast infection due to being immunocompromised Sulfa Antibiotics 05/27/2010 Itchy documented as of this encounter (statuses as of 06/28/2024) Medications Medication Sig Dispensed Refills Start Date [...] OPD, group B, by GOLD 2017 classification ([facility]),Moderate persistent asthma with acute exacerbation,COPD exacerbation ([facility]) INHALE 2 PUFFS BY MOUTH EVERY 4 HOURS IF NEEDED 54 g 3 10/15/2022 Active Spacer/Aero-Holding Chambers DeviceIndications: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 1 Each 10/15/2022 Active Fluticasone Propionate HFA 110 MCG/ACT Inhalation Aerosol (Flovent HFA)Indications:COPD, group B, by GOLD 2017 classification ([facility]) Inhale 2 Puffs by mouth [...] Respimat 2.5 MCG/ACT Inhalation Aerosol Solution (Tiotropium [place] Monohydrate) INHALE 2 PUFFS BY MOUTH IN [...] as of this encounter (statuses as of 06/28/2024) Active Problems Problem Noted Date Diagnosed Date [...] Acquired hypothyroidism Neurogenic bladder Coronary atherosclerosis of [place] coronary shahbaz ry documented as of this encounter (statuses as of 06/28/2024) Resolved Problems Problem Noted Date Diagnosed Date Resolved Date Multiple sclerosis 10/06/2021 2 COPD, mild 08/13/2011 03/21/2020 Overview: Per COPD GOLD Classification Follow-up examination, follo wing other surgery 06/27/2010 05/11/2011 Adrenal disorder 06/27/2010 05/11/2011 Plantar fasciitis 12/13/2019 documented as of this encounter (statuses as of 06/28/2024) Immunizations Name Administration Dates Next Due HEP B - Hepatitis B (Adole/H igh Risk Ped, 11-15 yrs 11/01/2019 Hepatitis B Vaccine 11/14/2020,11/01/2019 Hepatitis B, 20+ yrs 11/14/2020 MMR - Measles/Mumps/Rubella Vaccine 11/01/2019 Pneumococcal Conjugate Vacci ne, 20-valent ([id number]) 10/15/2022 Pneumococcal Polysaccharide PPV23 (Pneumovax) 12/30/2010 Seasonal Influenza, PF, 6 M & above, IM , (FluLaval or Fluzone) 10/15/2022 Seasonal Influenza, QUAD, wi th Preserv, 6 mons & Above, 0.5 mL, IM 08/04/2021 Seasonal Influenza, Quadriva lent, No Preserve, IM 08/13/2020 Seasonal Influenza, Trivalen t, (IIV3), with Preserv, (Fluzone) 08/13/2020,08/19/2012,08/02/2011,08/13 TD, Preservative Free 11/14/2020 Zoster Vaccine Recombinant [...] encounter Miscellaneous Notes * Telephone Encounter - Kellen José LPN - 06/28/2024 3:14 PM EDTRefused Prescriptions: Disp Refills busPIRone HCl 15 MG Oral Tablet (Buspar) 60 Tab*5 Sig: TAKE ONETABLET BY MOUTH IN THE MORNING , AND TAKE ONE TABLET BY MOUTH BEFORE BEDTIMERefused By: Betsey JOSÉ for Refusal: Refill Not Appropriate * Telephone Encounter - Kellen José LPN - 06/28/2024 3:13 PM EDT My g message sent to patient to see if she established care with psych or a new pcp. * Telephone Encounter - Brina Ruth MD - 06/28/2024 1:11 PM EDTPending Prescriptions: Disp Refills busPIRone HCl 15 MG Oral Tablet [Pharmacy *60 Tab*5 Sig: TAKE ONE TABLET BY MOUTH IN THE MORNING , AND TAKE ONE TABLET BY MOUTH BEFORE BEDTIME * Telephone Encounter - Brina Ruth MD - 06/28/2024 1:09 PM EDT Pt was supposed to see psychiatrist and get establish with new PCP locally due to her insurance notcovering [employer] . If she was already seen providers ask her to send refill to one of them and update PCP * Telephone Encounter - Nini Santos [facility] - 06/28/2024 10:18 AM EDT Pending Prescriptions: Disp Refills busPIRone HCl 15 MG Oral Tablet [Pharmacy *60 Tab*5 Sig: TAKE ONE TABLET BY MOUTH IN THE MORNING , AND TAKE ONE TABLET BY MOUTH BEFORE BEDTIME * Telephone Encounter - Nini Santos [facility] - 06/28/2024 10:17 AM EDT [facility] is currently not authorized to approve refills for the pended medication(s) per refill protocol. Please approve if appropriate. Did you pend patient's preferred pharmacy and medication before forwarding?yes Pharmacy: [facility] [phone] [facility] [place] Pending Prescriptions: Disp Refills busPIRone HCl 15 MG Oral Tablet (Buspar) *60 Tab*5 Sig: TAKE ONE TABLET BY MOUTH IN THE MORNING , AND TAKE ONE TABLET BY MOUTH BEFORE BEDTIME Last Visit: 01/18/2024 (in office), 07/09/2022 (telemedicine) Next Visit: Visit date not found If no future appointments scheduled, and last appointment is greater than a year ago, please schedule patient for a follow-up appointment Last date the medication was ordered: 01/18/24 Is this request for a controlled substance?No Urine Drug Screen: Results for orders placed or performed in visit on 05/06/23 PAIN MANAGEMENT DRUG PANEL, URINE W/ INTERPRETATION Result Value Compliance Interpretation Based on the medication information provided: The presence of 7-aminoclonazepam is CONSISTENT with clonazepam use. The presence of THC metabolite is INCONSISTENT with the information provided. Amphetamines Screen, U Negative Benzodiazepines Screen, U Refer to confirmation results (A) Cannabinoids Screen, U Refer to confirmation results (A) Cocaine Metabolite Screen, U Negative Fentanyl Screen, U Negative Hydrocodone Screen, U Negative Methadone Metabolite Screen, U Negative Morphine/Codeine Screen, U Negative Oxycodone Screen, U Negative Valid Interpretation Normal Creatinine, U 112 Narrative Cutoff Concentrations: Drug Level Amphetamines 500 ng/mL Benzodiazepines 100 ng/mL Cannabinoids 50 ng/mL Cocaine Metabolite 150 ng/mL Fentanyl 1 ng/mL Hydrocodone / Hydromorphone 300 ng/mL Methadone Metabolite 100 ng/mL Morphine / Codeine 300 ng/mL Oxycodone / Oxymorphone 100 ng/mL Screening results are presumptive and can only be used for medical purposes. Confirmatory testing is available upon request. *Note: Due to a large number of results and/or encounters for the requested time period, some results have not been displayed. A complete set of results can be found in Results Review. Patient Phone Numbers Labs: Lab Results Component Value Date/Time CREAT 0.8 01/28/2024 08:44 AM CREAT 0.80 12/26/2023 12:00 AM CREAT 0.91 05/06/2023 12:11 PM CREAT 1.0 10/09/2020 11:28 AM POTASSIUM 4.3 01/28/2024 08:44 AM POTASSIUM 3.7 12/26/2023 12:00 AM POTASSIUM 4.8 05/06/2023 12:11 PM POTASSIUM 5.3 (H) 10/09/2020 11:28 AM TSH 0.38 01/28/2024 08:44 AM TSH 0.190 (A) 12/24/2023 12:00 AM TSH <0.01 (L) 10/09/2020 11:28 AM LDL 72 03/22/2023 11:37 AM LDL 85 10/09/2020 11:28 AM LDL 85 12/13/2019 11:43 AM ALT 36 (H) 01/28/2024 08:44 AM ALT 13 10/09/2020 11:28 AM HGBA1C 6.4 (H) 01/28/2024 08:44 AM HGBA1C 6.5 04/04/2023 06:23 AM HGBA1C 6.1 (H) 10/09/2020 11:28 AM Thank you, Nini Santos, PharmD Clinical Pharmacist [facility] ([facility]) 06/28/24 10:17 AM [phone] documented in this encounter Plan of Treatment [...] Additional history exists CKD PHOS USE SMARTSET 64209 05/06/202404/11, 04/04/2023, 08/22/2021, Additional history exists COVID-19 [...] COPD 01/17/2025 01/18/2024 CKD HGB USE SMARTSET 26772 01/27/202501/27, 12/26/2023, 05/06/2023, Additional history exists TSH [...] as of this encounter Visit Diagnoses Diagnosis JINA (generalized anxiety disorder) Generalized anxiety disorder documented in this encounter Advance Directives * Full Code (Latest Code Status on File) Date Activated Date Inactivated Comments 06/26/2010 2:03 PM 06/27/2010 5:55 PM This order r eflects the patients wishes and were consensually agreed upon. Care Teams Electromechanisms Design Drafter Relationship Specialty Start Date End Date Brina Ruth MD [address] [place] [address] PCP - General Internal Medicine 02/19/20 documented as of this encounter
--- OUTSIDE RECORDS SUMMARY | 2024-11-01 23:55 | External Medical Summary | Summary of Care ---
Author Name Unknown Organization [facility] Address [address] [place] [address] Phone [phone] Care Team Providers Care Residential Framing Carpenter Name Role Phone Brina Ruth MD Primary Care Provider [phone] Reason for Visit * Reason Comments eRx-Medication Refill Encounter Details Date Type Department Care Team ([facility] st Contact Info) Description 06/05/2024 Refill General Internal Medicine [facility] [address] [place] [address] Brina Ruth MD [address] [place] [address] Allergies Active Allergy Reactions Criticality Noted Date Comments Avonex Prefilled Anaphylaxis High 09/03/2009 Glatiramer Acetate Anaphylaxis High 09/03/2009 Anaph, copaxone, beta interferon 1 Penicillins 05/20/2020 Pt reports yeast infection due to being immunocompromised Sulfa Antibiotics 05/27/2010 Itchy documented as of this encounter (statuses as of 06/07/2024) Medications Medication Sig Dispensed Refills Start Date End Date Status CLOBETASOL PROPIONATE 0.05 % EX CREAIndications:Oth er psoriasis apply to affected area twice a day for UP TO 2 weeks 15 g 1 11/05/2012 Active nitroglycerin (NITROSTAT) 0.4 MG SUBL One tablet under tongue if needed for chest pain. May repeat 3 times. If chest pain continues, call [phone] Tab 5 06/04/2020 Active Mupirocin 2 % [...] Sodium 40 MG Oral Tablet Delayed Release (Protonix)Indicatio ns:Leach's esophagus with dysplasia TAKE ONE TABLET TWICE A DAY BY MOUTH 30-60 MINUTES BEFORE A MEAL OR AFTER 08/22/2021 Active dilTIAZem HCl ER Coated Beads 120 MG Oral Capsule Extended Release 24 Hour (Cardizem CD)Indications:HTN, goal below 140/90 Take by mouth 2 Capsules in the morning. 30 Capsule 5 02/26/2022 Active Fluocinonide 0.05 % External SolutionIndications :Seborrhea capitis in adult APPLY TOPICALLY TO SCALP DAILY FOR 1 WEEK THEN 1-2 TIMES PER WEEK 60 mL 1 05/18/2022 Active cycloSPORINE 0.05 % Ophthalmic Emulsion Instill 1 Drop into both eyes in the morning and 1 Drop before bedtime. 60 mL 07/09/2022 Active Dicyclomine HCl 20 MG Oral Tablet (Bentyl) 07/08/2022 Active Albuterol Sulfate HFA 108 (90 Base) MCG/ACT Inhalation Aerosol SolutionIndications :COPD, group B, by GOLD 2017 classification ([facility]),Moderate persistent asthma with acute exacerbation,COPD exacerbation ([facility]) INHALE 2 PUFFS BY MOUTH EVERY 4 HOURS IF NEEDED 54 g 3 10/15/2022 Active Spacer/Aero-Holding Chambers DeviceIndications:C OPD, group B, by GOLD 2017 classification ([facility]),COPD exacerbation ([facility]) Use with inhaler. 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 36 g 3 10/15/2022 Active Isosorbide Mononitrate ER 30 MG Oral Tablet Extended Release 24 Hour (Imdur) Take 1 Tablet by mouth in the morning. 05/06/2023 Active Azithromycin 250 MG Oral Tablet (Zithromax Z-Jose Angel)Indications:O ther chronic sinusitis Take two tablets by mouth on first day, then 1 tablet daily until gone 6 Tablet 05/06/2023 Active Selenium Sulfide 2.25 % External ShampooIndications: Seborrheic dermatitis Apply to scalp and wash twice a week 180 mL 5 05/13/2023 Active Atorvastatin Calcium 40 MG Oral Tablet (Lipitor) TAKE ONE TABLET BY MOUTH EVERY DAY 90 Tablet 2 08/02/2023 Active Fexofenadine HCl 180 MG Oral Tablet (Shilpa) TAKE ONE TABLET BY MOUTH EVERY DAY 90 Tablet 3 08/14/2023 Active DULoxetine HCl 60 MG Oral Capsule Delayed Release Particles (Cymbalta)Indicatio ns:Fibromyalgia,JINA (generalized anxiety disorder) TAKE ONE CAPSULE BY MOUTH EVERY MORNING 90 Capsule 3 10/02/2023 Active Spiriva Respimat 2.5 MCG/ACT Inhalation Aerosol Solution (Tiotropium [place] Monohydrate) INHALE 2 PUFFS BY MOUTH IN [...] 30 MG Oral Capsule Delayed Release Particles (Cymbalta)Indicatio ns:Persistent insomnia TAKE ONE CAPSULE BY MOUTH EVERY EVENING. DO NOT CUT, CRUSH OR CHEW. 90 Capsule 1 11/09/2023 Active Gabapentin 800 MG Oral Tablet (Neurontin) TAKE TWO TABLETS BY MOUTH EVERY MORNING AND TAKE TWO TABLETS BY MOUTH IN THE AFTERNOON 120 Tablet 11 12/30/2023 Active Baclofen 10 MG Oral Tablet (Lioresal)Indicatio ns:Fibromyalgia TAKE ONE TABLET BY MOUTH THREE TIMES A DAY NEEDED FOR PAIN 270 Tablet 1 12/30/2023 Active busPIRone HCl 15 MG Oral Tablet (Buspar)Indications :JINA (generalized anxiety disorder) Take 1 Tablet by mouth in the morning and 1 Tablet before bedtime. 60 Tablet 5 01/18/2024 Active rOPINIRole HCl 0.5 MG Oral Tablet (Requip)Indications :Restless legs syndrome Take 1 Tablet by mouth [...] 02/24/2024 Active Methocarbamol 750 MG Oral Tablet (Robamol)Indication s:HTN, goal below 140/90 TAKE ONE TABLET BY MOUTH THREE TIMES A DAY 270 Tablet 1 03/01/2024 Active Ondansetron HCl 4 MG Oral Tablet (Zofran)Indications :Nausea with vomiting TAKE ONE TABLET BY MOUTH EVERY 8 HOURS NEEDED FOR NAUSEA 270 Tablet 1 03/11/2024 Active FLUoxetine HCl 40 MG Oral Capsule (PROzac)Indications :Generalized anxiety disorder TAKE ONE CAPSULE BY MOUTH EVERY MORNING 90 Capsule 3 03/15/2024 Active LORazepam 1 MG Oral Tablet (Ativan)Indications :JINA (generalized anxiety disorder),Chronic post-traumatic stress disorder (PTSD),Other insomnia Take 1 Tablet by mouth at bedtime as needed for Anxiety or Sleep. Do not start before April 02, 2024. 30 Tablet 04/02/2024 Active traZODone HCl 100 MG Oral Tablet (Desyrel)Indication s:Persistent insomnia Take 1 Tablet by mouth at bedtime. 90 Tablet 3 04/16/2024 Active metFORMIN HCl 1000 MG Oral Tablet (Glucophage)Indicat ions:Type 2 diabetes mellitus with hemoglobin A1c goal of less than 7.0% (HCC) TAKE ONE TABLET BY MOUTH TWICE A DAY(MORNING AND EVENING MEALS) 180 Tablet 3 04/27/2024 Active Levothyroxine Sodium 150 MCG Oral Tablet (Levoxyl)Indication s:Carotid stenosis, asymptomatic, bilateral TAKE ONE TABLET BY MOUTH IN THE MORNING . AT LEAST 30 MINUTES PRIOR TO BREAKFAST OR OTHER MEDS. 30 Tablet 3 04/27/2024 Active Fluticasone Propionate 50 MCG/ACT Nasal Suspension (Flonase)Indication s:COPD, group B, by GOLD 2017 classification ([facility]),Non-seasonal allergic rhinitis due to pollen SPRAY 1 SPRAY IN EACH NOSTRIL TWICE A DAY 48 g 3 05/10/2024 Active Fenofibrate 160 MG Oral Tablet (Lofibra) TAKE ONE TABLET BY MOUTH EVERY MORNING 90 Tablet 06/07/2024 Active Fenofibrate 160 MG Oral Tablet (Lofibra) TAKE ONE TABLET BY MOUTH EVERY MORNING 90 Tablet 3 06/04/2023 06/07/20 24 Discontinued documented as of this encounter (statuses as of 06/07/2024) Active Problems Problem Noted Date Diagnosed Date [...] Acquired hypothyroidism Neurogenic bladder Coronary atherosclerosis of [place] coronary shahbaz ry documented as of this encounter (statuses as of 06/07/2024) Resolved Problems Problem Noted Date Diagnosed Date Resolved Date Multiple sclerosis 10/06/2021 2 COPD, mild 08/13/2011 03/21/2020 Overview: Per COPD GOLD Classification Follow-up examination, lindsayo wing other surgery 06/27/2010 05/11/2011 Adrenal disorder 06/27/2010 05/11/2011 Plantar fasciitis 12/13/2019 documented as of this encounter (statuses as of 06/07/2024) Immunizations Name Administration Dates Next Due HEP B - Hepatitis B (Adole/H igh Risk Ped, 11-15 yrs 11/01/2019 Hepatitis B Vaccine 11/14/2020,11/01/2019 Hepatitis B, 20+ yrs 11/14/2020 MMR - Measles/Mumps/Rubella Vaccine 11/01/2019 Pneumococcal Conjugate Vacci ne, 20-valent ([id number]) 10/15/2022 Pneumococcal Polysaccharide PPV23 (Pneumovax) 12/30/2010 Seasonal Influenza, PF, 6 M & above, IM , (FluLaval or Fluzone) 10/15/2022 Seasonal Influenza, QUAD, wi th Preserv, 6 mons & Above, 0.5 mL, IM 08/04/2021 Seasonal Influenza, Quadriva lent, No Preserve, IM 08/13/2020 Seasonal Influenza, Split, I IV3, With Preserve, Inj 08/13/2020,08/19/2012,08/02/2011,08/13 TD, Preservative Free 11/14/2020 Zoster Vaccine [...] encounter Miscellaneous Notes * Telephone Encounter - Stephanie Null RPh - 06/07/2024 5:04 PM EDTSigned Prescriptions: Disp Refills Fenofibrate 160 MG Oral Tablet (Lofibra) 90 Tab*0 Sig: TAKE ONETABLET BY MOUTH EVERY MORNINGAuthorizing Provider: Sp RUTH User: STEPHANIE NULL- * Telephone Encounter - Stephanie Null RPh - 06/07/2024 1:54 PM EDTPending Prescriptions: Disp Refills Fenofibrate 160 MG Oral Tablet [Pharmacy M*90 Tab*3 Sig: TAKE ONE TABLET BY MOUTH EVERY MORNING * Telephone Encounter - Stephanie Null [facility] - 06/07/2024 1:50 PM EDT Per 04/27 refill encounter Pt is establishing with new PCP Dr Ruth noted that she would send supply to hold until new appt. Sent pt myG to see if she needed a refill ThanksStephanie, PharmD Clinical Pharmacist [facility] ([facility]) [phone] 06/07/2024 1:53 PM documented in this encounter Plan of Treatment [...] 01/09/2021 11/14/2020, 11/14/2020, 11/01/2019, Additional history exists COVID-19 Vaccine (1 - 2022-24 season) 2023 B-12 03/22/2024 03/22/2023, 03/11, 12/13/2019, Additional history exists Albumin/Creatinine Ratio 05/06/20242 023, 09/26/2021, 10/09/2020, Additional history exists CKD PHOS USE SMARTSET 09567 05/06/202404/11, 04/04/2023, 08/22/2021, Additional history exists Influenza Vaccine (FLU shot) (#1) 2024 10/15/2022, 08/04/2021, 08/13/2020, Additional history exists GFR 07/29/2024 01/28/2024, 12/09, 05/06/2023, Additional history exists HbA1c 07/29/2024 01/28/2024, 03/12, 04/04/2023, Additional history exists Diabetic Foot Exam 01/17/2025 01/18/2024, 0 10/15/2022, 11/14/2020, Additional history exists O2 ASSESSMENT COMPLETED IN PAST YEAR FOR COPD 01/17/2025 01/18/2024 CKD HGB USE SMARTSET 79261 01/27/202501/27, 12/26/2023, 05/06/2023, Additional history exists TSH [...] and were consensually agreed upon. Care Teams Residential Framing Carpenter Relationship Specialty Start Date End Date Brina Ruth MD [address] [facility] [place] [address] PCP - General Internal Medicine 02/19/20 documented as of this encounter
--- OUTSIDE RECORDS SUMMARY | 2024-11-01 23:55 | External Medical Summary | Summary of Care ---
Author Name Unknown Organization [facility] Address [address] [place] [address] Phone [phone] Care Team Providers Care Resource Economist Name Role Phone Marco Ruth MD Primary Care Provider [phone] Reason for Visit * Reason Comments eRx-Medication Refill Encounter Details Date Type Department Care Team ([facility] st Contact Info) Description 06/08/2024 Refill General Internal Medicine [facility] [address] [place] [address] Marco Ruth MD [address] [place] [address] Fibromyalgia Allergies Active Allergy Reactions Criticality Noted Date Comments Avonex Prefilled Anaphylaxis High 09/03/2009 Glatiramer Acetate Anaphylaxis High 09/03/2009 Anaph, copaxone, beta interferon 1 Penicillins 05/20/2020 Pt reports yeast infection due to being immunocompromised Sulfa Antibiotics 05/27/2010 Itchy documented as of this encounter (statuses as of 06/09/2024) Medications Medication Sig Dispensed Refills Start Date End Date Status CLOBETASOL PROPIONATE 0.05 % EX CREAIndications:Oth er psoriasis apply to affected area twice a day for UP TO 2 weeks 15 g 1 11/05/2012 Active nitroglycerin (NITROSTAT) 0.4 MG SUBL One tablet under tongue if needed for chest pain. May repeat 3 times. If chest pain continues, call [phone] Tab 5 06/04/2020 Active Mupirocin 2 [...] :COPD, group B, by GOLD 2017 classification ([facility]),Moderate persistent asthma with acute exacerbation,COPD exacerbation ([facility]) INHALE 2 PUFFS BY MOUTH EVERY 4 HOURS IF NEEDED 54 g 3 10/15/2022 Active Spacer/Aero-Holding Chambers DeviceIndications:C OPD, group B, by GOLD 2017 classification ([facility]),COPD exacerbation ([facility]) Use with inhaler. 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 ([facility]) Inhale 2 Puffs by [...] Respimat 2.5 MCG/ACT Inhalation Aerosol Solution (Tiotropium [place] Monohydrate) INHALE 2 PUFFS BY MOUTH IN [...] A1c goal of less than 7.0% ([facility]) TAKE ONE TABLET BY MOUTH [...] 06/07/2024 Active Baclofen 10 MG Oral Tablet (Lioresal)Indicatio ns:Fibromyalgia TAKE ONE TABLET BY MOUTH THREE TIMES A DAY NEEDED FOR PAIN 270 Tablet 1 06/09/2024 Active Baclofen 10 MG Oral Tablet (Lioresal)Indicatio ns:Fibromyalgia TAKE ONE TABLET BY MOUTH THREE TIMES A DAY NEEDED FOR PAIN 270 Tablet 1 12/30/2023 06/09/20 24 Discontinued documented as of this encounter (statuses as of 06/09/2024) Active Problems Problem Noted Date Diagnosed Date [...] Acquired hypothyroidism Neurogenic bladder Coronary atherosclerosis of [place] coronary shahbaz ry documented as of this encounter (statuses as of 06/09/2024) Resolved Problems Problem Noted Date Diagnosed Date Resolved Date Multiple sclerosis 10/06/2021 2 COPD, mild 08/13/2011 03/21/2020 Overview: Per COPD GOLD Classification Follow-up examination, follo wing other surgery 06/27/2010 05/11/2011 Adrenal disorder 06/27/2010 05/11/2011 Plantar fasciitis 12/13/2019 documented as of this encounter (statuses as of 06/09/2024) Immunizations Name Administration Dates Next Due HEP B - Hepatitis B (Adole/H igh Risk Ped, 11-15 yrs 11/01/2019 Hepatitis B Vaccine 11/14/2020,11/01/2019 Hepatitis B, 20+ yrs 11/14/2020 MMR - Measles/Mumps/Rubella Vaccine 11/01/2019 Pneumococcal Conjugate Vacci ne, 20-valent ([id number]) 10/15/2022 Pneumococcal Polysaccharide PPV23 (Pneumovax) 12/30/2010 Seasonal [...] encounter Miscellaneous Notes * Telephone Encounter - Marco Ruth MD - 06/09/2024 9:34 AM EDTSigned Prescriptions: Disp Refills Baclofen 10 MG Oral Tablet (Lioresal) 270 Ta*1 Sig: TAKE ONE TABLET BY MOUTH THREE TIMES A DAY NEEDED FOR PAIN Authorizing Provider: MARCO RUTH Refused Prescriptions: Disp Refills Fenofibrate 160 MG Oral Tablet (Lofibra) 90 Tab*0 Sig: TAKE ONE TABLET BY MOUTH EVERY MORNING Refused By: EMMANUELLE FUNK RA Reason for Refusal: Duplicate Request * Telephone Encounter - Emmanuelle Tijerina [facility] - 06/09/2024 9:24 AM EDTPending Prescriptions: Disp Refills Baclofen 10 MG Oral Tablet (Lioresal) 270 Ta*1 Sig: TAKE ONE TABLET BY MOUTH THREE TIMES A DAY NEEDED FOR PAIN Refused Prescriptions: Disp Refills Fenofibrate 160 MG Oral Tablet (Lofibra) 90 Tab*0 Sig: TAKE ONE TABLET BY MOUTH EVERY MORNING Refused By: EMMANUELLE TIJERINA Reason for Refusal: Duplicate R equest * Telephone Encounter - Emmanuelle Tijerina RPh - 06/09/2024 9:24 AM EDT [facility] is currently not authorized to approve refills for the pended medication(s) per refill protocol. Please approve if appropriate. Thanks, Emmanuelle Tijerina, PharmD Clinical Pharmacist Central[facility] Clinical Pharm[facility] Services ([facility]) [phone] 06/09/2024, 9:24 AM * Telephone Encounter - Emmanuelle Tijerina RPh - 06/09/2024 9:23 AM EDT Pending Prescriptions: Disp Refills Fenofibrate 160 MG Oral Tablet (Lofibra) *90 Tab*0 Sig: TAKE ONE TABLET BY MOUTH EVERY MORNING Baclofen 10 MG Oral Tablet (Lioresal) [Ph*270 Ta*1 Sig: TAKE ONE TABLET BY MOUTH THREE TIMES A DAY NEEDED FOR PAIN Last Visit: 01/18/2024 (in office), 07/09/2022 (telemedicine) Next Visit: Visit date not found If no future appointments scheduled, and last appointment is greater than a year ago, please schedule patient for a follow-up appointment Last date the medication was ordered: 12/30/23 Pharmacy: [facility] [address] [place] [address] [address] [facility] [place] Is this request for a controlled substance? No Urine Drug Screen: Results for orders placed [...] found in Results Review. Patient Phone Numbers [place] [phone] Labs: Lab Results Component Value Date/Time CREAT [...] AM HGBA1C 6.1 (H) 10/09/2020 11:28 AM documented in this encounter Plan of [...] 11/14/2020, 11/01/2019, Additional history exists COVID-19 Vaccine ( - 2022- season) 2023 B-12 03/22/2024 03/22/2023, 03/11, 12/13/2019, Additional history exists Albumin/Creatinine Ratio 05/06/2024 023, 09/26/2021, 10/09/2020, Additional history exists CKD PHOS USE SMARTSET 84092 05/06/2024 07/2 04/2023, 04/04/2023, 08/22/2021, Additional history exists Influenza Vaccine (FLU shot) (#1) 2024 10/15/2022, 08/04/2021, 08/13/2020, Additional history exists GFR 07/29/2024 01/28/2024, 12/09, 05/06/2023, Additional history exists HbA1c 07/29/2024 01/28/2024, 03/12, 04/04/2023, Additional history exists Diabetic Foot Exam 01/17/2025 01/18/2024, 0 10/15/2022, 11/14/2020, Additional history exists O2 ASSESSMENT COMPLETED IN PAST YEAR FOR COPD 01/17/2025 01/18/2024 CKD HGB USE SMARTSET 99051 01/27/202501/27, 12/26/2023, 05/06/2023, Additional history exists TSH [...] as of this encounter Visit Diagnoses Diagnosis Fibromyalgia Mylagia and myositis, unspecified documented in this encounter Advance Directives * Full Code (Latest Code Status on File) Date Activated Date Inactivated Comments 06/26/2010 2:03 PM 06/27/2010 5:55 PM This order r eflects the patients wishes and were consensually agreed upon. Care Teams Resource Economist Relationship Specialty Start Date End Date Marco Ruth MD [address] [place] [address] PCP - General Internal Medicine 02/19/20 documented as of this encounter
--- OUTSIDE RECORDS SUMMARY | 2024-11-01 23:55 | External Medical Summary | Summary of Care ---
Author Name Unknown Organization [facility] Address [address] [place] [address] Phone [phone] Care Team Providers Care Mainspring Strip Inspector Name Role Phone Brina Ruth MD Primary Care Provider [phone] Reason for Visit * Reason Comments eRx-Medication Refill Encounter Details Date Type Department Care Team ([facility] st Contact Info) Description 06/05/2024 Refill General Internal Medicine [facility] [address] [facility] [place] [address] Brina Ruth MD [address] [place] [address] Allergies Active Allergy Reactions Criticality Noted Date [...] 3 times. If chest pain continues, call [phone] Tab 5 06/04/2020 Active Mupirocin 2 % [...] group B, by GOLD 2017 classification ([facility]),Moderate persistent asthma with acute exacerbation,COPD exacerbation ([facility]) INHALE 2 PUFFS BY MOUTH EVERY 4 HOURS IF NEEDED 54 g 3 10/15/2022 Active Spacer/Aero-Holding Chambers DeviceIndications:C OPD, 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 ([facility]) Inhale 2 Puffs by mouth [...] Respimat 2.5 MCG/ACT Inhalation Aerosol Solution (Tiotropium [place] Monohydrate) INHALE 2 PUFFS BY MOUTH IN [...] Active LORazepam 1 MG Oral Tablet (Ativan)Indications :JNIA (generalized anxiety disorder),Chronic post-traumatic stress disorder (PTSD),Other [...] Acquired hypothyroidism Neurogenic bladder Coronary atherosclerosis of [place] coronary sahhbaz ry documented as of this encounter (statuses [...] Vaccine 11/01/2019 Pneumococcal Conjugate Vacci ne, 20-valent ([id number]) 10/15/2022 Pneumococcal Polysaccharide PPV23 (Pneumovax) 12/30/2010 Seasonal [...] Notes * Telephone Encounter - Ciara Null RPh - 06/07/2024 1:54 PM EDTPending Prescriptions: Disp Refills Fenofibrate 160 MG Oral Tablet [Pharmacy M*90 Tab*3 Sig: TAKE ONE TABLET BY MOUTH EVERY MORNING * Telephone Encounter - Ciara Null RPh - 06/07/2024 1:50 PM EDT Per 04/27 refill encounter Pt is establishing with new PCP Dr Ruth noted that she would send supply to hold until new appt. Sent pt myG to see if she needed a refill ThanksCiara, PharmD Clinical Pharmacist [facility] ([facility]) [phone] 06/07/2024 1:53 PM documented in this encounter [...] Additional history exists CKD PHOS USE SMARTSET 81250 05/06/202404/11, 04/04/2023, 08/22/2021, Additional history exists Influenza Vaccine (FLU shot) (#1) 2024 10/15/2022, 08/04/2021, 08/13/2020, Additional history exists GFR 07/29/2024 01/28/2024, 12/09, 05/06/2023, Additional history exists HbA1c 07/29/2024 01/28/2024, 03/12, 04/04/2023, Additional history exists Diabetic Foot Exam 01/17/2025 01/18/2024, 0 10/15/2022, 11/14/2020, Additional history exists O2 ASSESSMENT COMPLETED IN PAST YEAR FOR COPD 01/17/2025 01/18/2024 CKD HGB USE SMARTSET 32613 01/27/202501/27, 12/26/2023, 05/06/2023, Additional history exists TSH [...] and were consensually agreed upon. Care Teams Mainspring Strip Inspector Relationship Specialty Start Date End Date Brina Ruth MD [address] [facility] [place], [place] [address] PCP - General Internal Medicine 02/19/20 documented as of this encounter
--- OUTSIDE RECORDS SUMMARY | 2024-11-01 23:55 | External Medical Summary | Summary of Care ---
Author Name Unknown Organization [facility] Address [address] [place] [address] Phone [phone] Care Team Providers Care Tung Nut Grower Name Role Phone Brina Ruth MD Primary Care Provider [phone] Reason for Visit * Reason Onset Date Comments Order Request 04/11/2024 Encounter Details Date Type Department Care Team (Late st Contact Info) Description 04/11/2024 Telephone General Internal Medicine [facility] [address] [place] [address] Brina Ruth MD [address] [place] [address] Order Request Allergies Active Allergy Reactions Criticality Noted Date Comments Avonex Prefilled Anaphylaxis High 09/03/2009 Glatiramer Acetate Anaphylaxis High 09/03/2009 Anaph, copaxone, beta interferon 1 Penicillins 05/20/2020 Pt reports yeast infection due to being immunocompromised Sulfa Antibiotics 05/27/2010 Itchy documented as of this encounter (statuses as of 07/11/2024) Medications Medication Sig Dispensed Refills Start Date End Date Status CLOBETASOL PROPIONATE 0.05 % EX CREAIndications:Ot her [...] s:COPD, group B, by GOLD 2017 classification ([facility]),Moderate persistent asthma with acute exacerbation,COPD exacerbation ([facility]) INHALE 2 PUFFS BY MOUTH EVERY 4 HOURS IF NEEDED 54 g 3 3 Active Spacer/Aero-Holdin g Chambers DeviceIndications: COPD, group B, by GOLD 2017 classification ([facility]),COPD exacerbation ([facility]) Use with inhaler. 1 Each 3 Active Fluticasone Propionate HFA 110 MCG/ACT Inhalation Aerosol (Flovent HFA)Indications:CO PD, group B, by GOLD 2017 classification ([facility]) Inhale 2 Puffs by mouth in [...] Respimat 2.5 MCG/ACT Inhalation Aerosol Solution (Tiotropium [place] Monohydrate) INHALE 2 PUFFS BY MOUTH IN [...] April 02, 2024. 30 Tablet 4 Active metFORMIN HCl 1000 MG Oral Tablet (Glucophage)Indica tions:Type 2 diabetes mellitus with hemoglobin A1c goal of less than 7.0% (HCC) TAKE ONE TABLET BY MOUTH TWICE A DAY (MORNING AND EVENING MEALS) 180 Tablet 3 3 04/27/20 24 Discontinued traZODone HCl 100 MG Oral Tablet (Desyrel)Indicatio ns:Persistent insomnia TAKE ONE TABLET BY MOUTH EVERY EVENING AT BEDTIME 90 Tablet 3 3 04/14/20 24 Discontinued(Ref ill) Fluticasone Propionate 50 MCG/ACT Nasal Suspension (Flonase)Indicatio ns:COPD, group B, by GOLD 2017 classification ([facility]),Non-seasonal allergic rhinitis due to pollen USE 1 SPRAY IN EACH NOSTRIL TWICE DAILY 48 g 3 3 05/10/20 24 Discontinued Fenofibrate 160 MG Oral Tablet (Lofibra) TAKE ONE TABLET BY MOUTH EVERY MORNING 90 Tablet 3 3 06/07/20 24 Discontinued Baclofen 10 MG Oral Tablet (Lioresal)Indicati ons:Fibromyalgia TAKE ONE TABLET BY MOUTH THREE TIMES A DAY NEEDED FOR PAIN 270 Tablet 1 4 06/09/20 24 Discontinued Levothyroxine Sodium 150 MCG Oral Tablet (Levoxyl)Indicatio ns:Carotid stenosis, asymptomatic, bilateral Take 1 Tablet by mouth in the morning. (at least 30 min prior to breakfast or other meds). 30 Tablet 3 4 04/27/20 24 Discontinued Hospital, Clinic, or Other Facility Administered Medication Ordered Dose Route Frequency Start Date End Date Status Albuterol Sulfate (Proventil) (2.5 MG/3ML) 0.083% inhalation solution 2.5 mgIndications:COPD, group B, by GOLD 2017 classification ([facility]) 2.5 mg NEBULIZER PRN 05/06/2023 05/05/2024 Ende d albuterol (VENTOLIN HFA/PROVENTIL HFA) inhalerIndications:COPD , group B, by GOLD 2017 classification ([facility]) 3 Puff IN PRN 05/06/2023 05/05/2024 Ende d documented as of this encounter (statuses as of 07/11/2024) Active Problems Problem Noted Date Diagnosed Date [...] Acquired hypothyroidism Neurogenic bladder Coronary atherosclerosis of [place] coronary shahbaz ry documented as of this encounter (statuses as of 07/11/2024) Resolved Problems Problem Noted Date Diagnosed Date Resolved Date Multiple sclerosis 10/06/2021 2 COPD, mild 08/13/2011 03/21/2020 Overview: Per COPD GOLD Classification Follow-up examination, follo wing other surgery 06/27/2010 05/11/2011 Adrenal disorder 06/27/2010 05/11/2011 Plantar fasciitis 12/13/2019 documented as of this encounter (statuses as of 07/11/2024) Immunizations Name Administration Dates Next Due HEP B - Hepatitis B (Adole/H igh Risk Ped, 11-15 yrs 11/01/2019 Hepatitis B Vaccine 11/14/2020,11/01/2019 Hepatitis B, 20+ yrs 11/14/2020 MMR - Measles/Mumps/Rubella Vaccine 11/01/2019 Pneumococcal Conjugate Vacci ne, 20-valent ([id number]) 10/15/2022 Pneumococcal Polysaccharide PPV23 (Pneumovax) 12/30/2010 Seasonal [...] Miscellaneous Notes * Telephone Encounter - Marj Wilkinson LPN - 04/11/2024 2:22 PM EDT Dexa and Mammogram ordered, please call and assist patient in scheduling. * Telephone Encounter - Eneida Leslie OSA - 04/11/2024 2:12 PM EDT An order was requested for this patient. Name of Requesting Provider: Y Order Requested: DEXA AND MAMMOGRAM Diagnosis/Reason for Request: SCREENING If order request is for Mammogram: Is the patient having any breast symptoms? Yes Is there a chance of ? No Has the patient had any breast problems in the past? NO What location AND department does the patient wish to have their order completed at? [facility] Fax Number, if applicable: NA PLEASE CALL PATIENT TO SCHEDULE BOTH SCREENING MAMMO AND DEXA SCAN WHEN ORDER IS IN SHE WOULD LIKE TO HAVE THEM DONE TOGETHER. If the caller is not a current patient, please advise the patient to call their current PCP to havethe order's prior to being seen in our office. The patient was informed that our providers would not order anything (medication, labs, etc.) prior to being seen. documented in this encounter Plan of Treatment Scheduled Orders Name Type Priority Associated Diagnoses Orde r Schedule DEXA SCAN/BONE MINERAL AXIAL Medical Imaging Routine Screening for osteoporosis Ordered: 04/11/2024 MAMMOGRAM SCREENING LG BILATERAL Medical Imaging Routine Encounter for screening mammogram for breast cancer Expected: 04/11/2024, Expires: 05/12/2025 Health Maintenance Due Date Last Done Comments [...] Additional history exists CKD PHOS USE SMARTSET 40527 05/06/202404/11, 04/04/2023, 08/22/2021, Additional history exists COVID-19 [...] COPD 01/17/2025 01/18/2024 CKD HGB USE SMARTSET 97464 01/27/202501/27, 12/26/2023, 05/06/2023, Additional history exists TSH [...] as of this encounter Visit Diagnoses Diagnosis Screening for osteoporosis- Primary Special screening for osteoporosis Encounter for screening mammogram for breast cancer documented in this encounter Advance Directives * Full Code (Latest Code Status on File) Date Activated Date Inactivated Comments 06/26/2010 2:03 PM 06/27/2010 5:55 PM This order r eflects the patients wishes and were consensually agreed upon. Care Teams Tung Nut Grower Relationship Specialty Start Date End Date Brina Ruth MD [address] [place], [place] [id number] PCP - General Internal Medicine 02/19/20 documented as of this encounter
--- OUTSIDE RECORDS SUMMARY | 2024-11-01 23:55 | External Medical Summary | Summary of Care ---
Author Name Unknown Organization [facility] Address [address] [place] [address] Phone [phone] Care Team Providers Care Pneumatic Deicer Inspector Name Role Phone Brina Ruth MD Primary Care Provider [phone] Reason for Visit * Reason Onset Date Comments Medication Question 07/04/2024 Not covered. Encounter Details Date Type Department Care Team (Late st Contact Info) Description 07/04/2024 Telephone General Internal Medicine [facility] [address] [place] [address] Brina Ruth MD [address] [place] [address] Medication Question (Not covered.) Allergies Active Allergy Reactions Criticality Noted Date Comments Avonex Prefilled Anaphylaxis High 09/03/2009 Glatiramer Acetate Anaphylaxis High 09/03/2009 Anaph, copaxone, beta interferon 1 Penicillins 05/20/2020 Pt reports yeast infection due to being immunocompromised Sulfa Antibiotics 05/27/2010 Itchy documented as of this encounter (statuses as of 07/04/2024) Medications Medication Sig Dispensed Refills Start Date [...] 54 g 3 10/15/2022 Active Spacer/Aero-Holding Chambers DeviceIndications: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 1 Each 10/15/2022 Active Fluticasone Propionate HFA 110 MCG/ACT Inhalation Aerosol (Flovent HFA)Indications:COPD, group B, by GOLD 2017 classification (FORM[facility]LY [...] Respimat 2.5 MCG/ACT Inhalation Aerosol Solution (Tiotropium [place] Monohydrate) INHALE 2 PUFFS BY MOUTH IN [...] as of this encounter (statuses as of 07/04/2024) Active Problems Problem Noted Date Diagnosed Date [...] Acquired hypothyroidism Neurogenic bladder Coronary atherosclerosis of [place] coronary shahbaz ry documented as of this encounter (statuses as of 07/04/2024) Resolved Problems Problem Noted Date Diagnosed Date Resolved Date Multiple sclerosis 10/06/2021 2 COPD, mild 08/13/2011 03/21/2020 Overview: Per COPD GOLD Classification Follow-up examination, follo wing other surgery 06/27/2010 05/11/2011 Adrenal disorder 06/27/2010 05/11/2011 Plantar fasciitis 12/13/2019 documented as of this encounter (statuses as of 07/04/2024) Immunizations Name Administration Dates Next Due HEP B - Hepatitis B (Adole/H igh Risk Ped, 11-15 yrs 11/01/2019 Hepatitis B Vaccine 11/14/2020,11/01/2019 Hepatitis B, 20+ yrs 11/14/2020 MMR - Measles/Mumps/Rubella Vaccine 11/01/2019 Pneumococcal Conjugate Vacci ne, 20-valent ([id number]) 10/15/2022 Pneumococcal Polysaccharide PPV23 (Pneumovax) 12/30/2010 Seasonal [...] encounter Miscellaneous Notes * Telephone Encounter - Bacilio Ferrer CMA - 07/04/2024 12:17 PM EDT Received notice from [employer] that the Spiriva Respimat, not covered/not on formulary, alternative requested. documented in this encounter Plan of Treatment [...] Additional history exists CKD PHOS USE SMARTSET 34607 05/06/202404/11, 04/04/2023, 08/22/2021, Additional history exists COVID-19 [...] COPD 01/17/2025 01/18/2024 CKD HGB USE SMARTSET 75123 01/27/202501/27, 12/26/2023, 05/06/2023, Additional history exists TSH [...] and were consensually agreed upon. Care Teams Pneumatic Deicer Inspector Relationship Specialty Start Date End Date Brina Ruth MD [address] [place] [address], [place] [id number] PCP - General Internal Medicine 02/19/20 documented as of this encounter
--- OUTSIDE RECORDS SUMMARY | 2024-11-01 23:55 | External Medical Summary | Summary of Care ---
Author Name Unknown Organization [facility] Address [address] [place] [address] Phone [phone] Care Team Providers Care Winter Intern Name Role Phone Brina Ruth MD Primary Care Provider [phone] Reason for Visit * Reason Comments eRx-Medication Refill Encounter Details Date Type Department Care Team (Late st Contact Info) Description 05/09/2024 Refill General Internal Medicine [facility] [address] [facility] [place] [address] Brina Ruth MD [address] [place] [address] COPD, group B, by GOLD 2017 classification (HCC); Non-seasonal allergic rhinitis due to pollen Allergies Active Allergy Reactions Criticality Noted Date Comments Avonex Prefilled Anaphylaxis High 09/03/2009 Glatiramer Acetate Anaphylaxis High 09/03/2009 Anaph, copaxone, beta interferon 1 Penicillins 05/20/2020 Pt reports yeast infection due to being immunocompromised Sulfa Antibiotics 05/27/2010 Itchy documented as of this encounter (statuses as of 05/10/2024) Medications Medication Sig Dispensed Refills Start Date [...] :COPD, group B, by GOLD 2017 classification ([facility]),Moderate persistent asthma with acute exacerbation,COPD exacerbation ([facility]) INHALE 2 PUFFS BY MOUTH EVERY 4 HOURS IF NEEDED 54 g 3 10/15/2022 Active Spacer/Aero-Holding Chambers DeviceIndications:C OPD, group B, by GOLD 2017 classification ([facility]),COPD exacerbation ([facility]) Use with inhaler. 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 D, group B, by GOLD 2017 classification ([facility]) Inhale 2 Puffs by mouth in the [...] a week 180 mL 5 05/13/2023 Active Fenofibrate 160 MG Oral Tablet (Lofibra) TAKE ONE TABLET BY MOUTH EVERY MORNING 90 Tablet 3 06/04/2023 Active Atorvastatin Calcium 40 MG Oral Tablet [...] Respimat 2.5 MCG/ACT Inhalation Aerosol Solution (Tiotropium [place] Monohydrate) INHALE 2 PUFFS BY MOUTH IN [...] Active LORazepam 1 MG Oral Tablet (Ativan)Indications :JIAN (generalized anxiety disorder),Chronic post-traumatic stress disorder (PTSD),Other [...] hemoglobin A1c goal of less than 7.0% ([facility]) TAKE ONE TABLET BY MOUTH TWICE A [...] s:COPD, group B, by GOLD 2017 classification ([facility]),Non-seasonal allergic rhinitis due to pollen SPRAY 1 SPRAY IN EACH NOSTRIL TWICE A DAY 48 g 3 05/10/2024 Active Fluticasone Propionate 50 MCG/ACT Nasal Suspension (Flonase)Indication s:COPD, group B, by GOLD 2017 classification ([facility]),Non-seasonal allergic rhinitis due to pollen USE 1 SPRAY IN EACH NOSTRIL TWICE DAILY 48 g 3 05/06/2023 05/10/20 24 Discontinued documented as of this encounter (statuses as of 05/10/2024) Active Problems Problem Noted Date Diagnosed Date [...] Acquired hypothyroidism Neurogenic bladder Coronary atherosclerosis of [place] coronary shahbaz ry documented as of this encounter (statuses as of 05/10/2024) Resolved Problems Problem Noted Date Diagnosed Date Resolved Date Multiple sclerosis 10/06/2021 2 COPD, mild 08/13/2011 03/21/2020 Overview: Per COPD GOLD Classification Follow-up examination, javier dawson other surgery 06/27/2010 05/11/2011 Adrenal disorder 06/27/2010 05/11/2011 Plantar fasciitis 12/13/2019 documented as of this encounter (statuses as of 05/10/2024) Immunizations Name Administration Dates Next Due HEP B - Hepatitis B (Adole/H igh Risk Ped, 11-15 yrs 11/01/2019 Hepatitis B Vaccine 11/14/2020,11/01/2019 Hepatitis B, 20+ yrs 11/14/2020 MMR - Measles/Mumps/Rubella Vaccine 11/01/2019 Pneumococcal Conjugate Vacci ne, 20-valent ([id number]) 10/15/2022 Pneumococcal Polysaccharide PPV23 (Pneumovax) 12/30/2010 Seasonal [...] encounter Miscellaneous Notes * Telephone Encounter - Chandni Caldera [facility] - 05/10/2024 10:34 AM EDTSigned Prescriptions: Disp Refills Fluticasone Propionate 50 MCG/ACT Nasal Zarate*48 g 3 Sig: SPRAY 1 SPRAY IN EACH NOSTRIL TWICE A DAYAuthorizing Provider: Sp RUTH User: CHANDNI CALDERA N documented in this encounter Plan of Treatment Health Maintenance Due Date Last Done Comments Alpha-1 Antitrypsin 1985 Diabetic Eye Exam 09/03/2010 09/03/2009 Mammogram 10/24/2011 10/24/2010 Cologuard 2012 Fecal Occult Blood Test 2012 Sigmoidoscopy 2012 *COPD SEVERITY VERIFIED BY PFT 12/06/2019 Zoster Vaccines (2 of 2) 12/27/2019 11/01/2019 DTaP,Tdap,and Td Vaccines (1 - Tdap) 11/15/2020 11/14/2020 Depression Monitoring 12/12/2020 12/13/2019 Hepatitis B Vaccine (3 of 3 - 19+ 3-dose series) 01/09/2021 11/14/2020, 11/14/2020, 11/01/2019, Additional history exists COVID-19 Vaccine ( - 2022- season) 2023 B-12 03/22/2024 03/22/2023, 03/11, 12/13/2019, Additional history exists *CXR OR CT FOR COPD EVER 04/23/2024 Albumin/Creatinine Ratio 05/06/2024 023, 09/26/2021, 10/09/2020, Additional history exists CKD PHOS USE SMARTSET 12875 05/06/20242 04/2023, 04/04/2023, 08/22/2021, Additional history exists Influenza Vaccine (FLU shot) (#1) 2024 10/15/2022, 08/04/2021, 08/13/2020, Additional history exists GFR 07/29/2024 01/28/2024, 12/09, 05/06/2023, Additional history exists HbA1c 07/29/2024 01/28/2024, 03/12, 04/04/2023, Additional history exists Diabetic Foot Exam 01/17/2025 01/18/2024, 0 10/15/2022, 11/14/2020, Additional history exists O2 ASSESSMENT COMPLETED IN PAST YEAR FOR COPD 01/17/2025 01/18/2024 CKD HGB USE SMARTSET 51206 01/27/202501/27, 12/26/2023, 05/06/2023, Additional history exists TSH [...] as of this encounter Visit Diagnoses Diagnosis COPD, group B, by GOLD 2017 classification (HCC) Non-seasonal allergic rhinitis due to pollen documented in this encounter Advance Directives * Full Code (Latest Code Status on File) Date Activated Date Inactivated Comments 06/26/2010 2:03 PM 06/27/2010 5:55 PM This order r eflects the patients wishes and were consensually agreed upon. Care Teams Winter Intern Relationship Specialty Start Date End Date Brina Ruth MD [address] [place] [address] PCP - General Internal Medicine 02/19/20 documented as of this encounter
--- OUTSIDE RECORDS SUMMARY | 2024-11-01 23:55 | External Medical Summary | Summary of Care ---
Author Name Unknown Organization [facility] Address [address] [place] [address] Phone [phone] Care Team Providers Care Real Estate Loan Processor Name Role Phone Brina Ruth MD Primary Care Provider [phone] Reason for Visit * Reason Onset Date Comments Medication Question 07/04/2024 Not covered. Encounter Details Date Type Department Care Team (Late st Contact Info) Description 07/04/2024 Telephone General Internal Medicine [facility] [address] [place] [address] Brina Ruth MD [address] [place] [address] Medication Question (Not covered.) Allergies Active Allergy Reactions Criticality Noted Date Comments Avonex Prefilled Anaphylaxis High 09/03/2009 Glatiramer Acetate Anaphylaxis High 09/03/2009 Anaph, copaxone, beta interferon 1 Penicillins 05/20/2020 Pt reports yeast infection due to being immunocompromised Sulfa Antibiotics 05/27/2010 Itchy documented as of this encounter (statuses as of 07/10/2024) Medications Medication Sig Dispensed Refills Start Date [...] 54 g 3 10/15/2022 Active Spacer/Aero-Holding Chambers DeviceIndications: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 D, group B, by GOLD 2017 classification [...] Respimat 2.5 MCG/ACT Inhalation Aerosol Solution (Tiotropium [place] Monohydrate) INHALE 2 PUFFS BY MOUTH IN [...] as of this encounter (statuses as of 07/10/2024) Active Problems Problem Noted Date Diagnosed Date [...] thyroid 04/17/2020 Chronic post-traumatic stress disorder (PTSD) JNIA (generalized anxiety disorder) 04/17/2020 Nightmare 04/17/2020 COPD, [...] Acquired hypothyroidism Neurogenic bladder Coronary atherosclerosis of [place] coronary shahbaz ry documented as of this encounter (statuses as of 07/10/2024) Resolved Problems Problem Noted Date Diagnosed Date Resolved Date Multiple sclerosis 10/06/2021 2 COPD, mild 08/13/2011 03/21/2020 Overview: Per COPD GOLD Classification Follow-up examination, follo wing other surgery 06/27/2010 05/11/2011 Adrenal disorder 06/27/2010 05/11/2011 Plantar fasciitis 12/13/2019 documented as of this encounter (statuses as of 07/10/2024) Immunizations Name Administration Dates Next Due HEP B - Hepatitis B (Adole/H igh Risk Ped, 11-15 yrs 11/01/2019 Hepatitis B Vaccine 11/14/2020,11/01/2019 Hepatitis B, 20+ yrs 11/14/2020 MMR - Measles/Mumps/Rubella Vaccine 11/01/2019 Pneumococcal Conjugate Vacci ne, 20-valent ([id number]) 10/15/2022 Pneumococcal Polysaccharide PPV23 (Pneumovax) 12/30/2010 Seasonal [...] encounter Miscellaneous Notes * Telephone Encounter - Rosalind Prakash LPN - 07/10/2024 4:08 PM EDT Messages have been sent to pt about finding new PCP - see other encounters * Telephone Encounter - Brina Ruth MD - 07/04/2024 1:15 PM EDT Pt should have a new PCP in the area in network . Check with her and ask her to call new PCP * Telephone Encounter - Bacilio Ferrer CMA [...] Additional history exists CKD PHOS USE SMARTSET 34642 05/06/2024 072 04/2023, 04/04/2023, 08/22/2021, Additional history exists COVID-19 Vaccine ( season) 2024 Influenza Vaccine (FLU shot) (#1) 2024 10/15/2022, 08/04/2021, 08/13/2020, Additional history exists GFR 07/29/2024 01/28/2024, 12/09, 05/06/2023, Additional history exists HbA1c 07/29/2024 01/28/2024, 0602/2023, 04/04/2023, Additional history exists Diabetic Foot Exam 01/17/2025 01/18/2024, 0 10/15/2022, 11/14/2020, Additional history exists O2 ASSESSMENT COMPLETED IN PAST YEAR FOR COPD 01/17/2025 01/18/2024 CKD HGB USE SMARTSET 33598 01/27/202501/27, 12/26/2023, 05/06/2023, Additional history exists TSH [...] and were consensually agreed upon. Care Teams Real Estate Loan Processor Relationship Specialty Start Date End Date Brina Ruth MD [address] [place] [address] PCP - General Internal Medicine 02/19/20 documented as of this encounter
--- OUTSIDE RECORDS SUMMARY | 2024-11-01 23:55 | External Medical Summary | Summary of Care ---
Author Name Unknown Organization [facility] Address [address] [place] [address] Phone [phone] Care Team Providers Care Worm Packer Name Role Phone Brina Ruth MD Primary Care Provider [phone] Reason for Visit * Reason Comments eRx-Medication Refill Encounter Details Date Type Department Care Team ([facility] st Contact Info) Description 06/29/2024 Refill General Internal Medicine [facility] [address] [facility] [place] [address] Brina Ruth MD [address] [place] [address] JINA (generalized anxiety disorder) Allergies Active Allergy Reactions Criticality Noted Date Comments Avonex Prefilled Anaphylaxis High 09/03/2009 Glatiramer Acetate Anaphylaxis High 09/03/2009 Anaph, copaxone, beta interferon 1 Penicillins 05/20/2020 Pt reports yeast infection due to being immunocompromised Sulfa Antibiotics 05/27/2010 Itchy documented as of this encounter (statuses as of 06/30/2024) Medications Medication Sig Dispensed Refills Start Date [...] 54 g 3 10/15/2022 Active Spacer/Aero-Holding Chambers DeviceIndications:DROP TESTER D, group B, by GOLD 2017 classification [...] Respimat 2.5 MCG/ACT Inhalation Aerosol Solution (Tiotropium [place] Monohydrate) INHALE 2 PUFFS BY MOUTH IN [...] as of this encounter (statuses as of 06/30/2024) Active Problems Problem Noted Date Diagnosed Date [...] Acquired hypothyroidism Neurogenic bladder Coronary atherosclerosis of [place] coronary shahbaz ry documented as of this encounter (statuses as of 06/30/2024) Resolved Problems Problem Noted Date Diagnosed Date Resolved Date Multiple sclerosis 10/06/2021 2 COPD, mild 08/13/2011 03/21/2020 Overview: Per COPD GOLD Classification Follow-up examination, follo wing other surgery 06/27/2010 05/11/2011 Adrenal disorder 06/27/2010 05/11/2011 Plantar fasciitis 12/13/2019 documented as of this encounter (statuses as of 06/30/2024) Immunizations Name Administration Dates Next Due HEP B - Hepatitis B (Adole/H igh Risk Ped, 11-15 yrs 11/01/2019 Hepatitis B Vaccine 11/14/2020,11/01/2019 Hepatitis B, 20+ yrs 11/14/2020 MMR - Measles/Mumps/Rubella Vaccine 11/01/2019 Pneumococcal Conjugate Vacci ne, 20-valent ([id number]) 10/15/2022 Pneumococcal Polysaccharide PPV23 (Pneumovax) 12/30/2010 Seasonal [...] encounter Miscellaneous Notes * Telephone Encounter - Herlinda Meade [facility] - 06/30/2024 7:49 AM EDTRefused Prescriptions: Disp Refills busPIRone HCl 15 MG Oral Tablet (Buspar) 60 Tab*5 Sig: TAKE ONETABLET BY MOUTH IN THE MORNING , AND TAKE ONE TABLET BY MOUTH BEFORE BEDTIMERefused By: HERLINDA MEADE for Refusal: Duplicate Request documented in this encounter Plan of Treatment [...] Additional history exists CKD PHOS USE SMARTSET 85074 05/06/2024 0704/2023, 04/04/2023, 08/22/2021, Additional history exists [...] COPD 01/17/2025 01/18/2024 CKD HGB USE SMARTSET 22691 01/27/202501/27, 12/26/2023, 05/06/2023, Additional history exists TSH [...] and were consensually agreed upon. Care Teams Worm Packer Relationship Specialty Start Date End Date Brina Ruth MD [address] [place] [address] PCP - General Internal Medicine 02/19/20 documented as of this encounter
--- OUTSIDE RECORDS SUMMARY | 2024-11-01 23:55 | External Medical Summary | Summary of Care ---
Author Name Unknown Organization [facility] Address [address] [place] [address] Phone [phone] Care Team Providers Care Behavioral Consultant Name Role Phone Brina Ruth MD Primary Care Provider [phone] Encounter Details Date Type Department Care Team (Late st Contact Info) Description 07/04/2024 Medication Management General Internal Medicine [facility] [address] [place] [address] Brina Ruth MD [address] [place] [address] Allergies Active Allergy Reactions Criticality Noted Date [...] 3 times. 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 1 Each 10/15/2022 Active Fluticasone Propionate HFA 110 MCG/ACT Inhalation Aerosol (Flovent HFA)Indications:COPD, group B, by GOLD 2017 classification ([facility]) Inhale 2 Puffs by mouth in [...] Respimat 2.5 MCG/ACT Inhalation Aerosol Solution (Tiotropium [place] Monohydrate) INHALE 2 PUFFS BY MOUTH IN [...] 8 HOURS NEEDED FOR NAUSEA 270 Tablet 03/11/2024 Active FLUoxetine HCl 40 MG Oral Capsule (PROzac)Indications:G eneralized anxiety disorder TAKE ONE CAPSULE BY MOUTH EVERY MORNING 90 Capsule 03/15/2024 Active LORazepam 1 MG Oral Tablet (Ativan)Indications:G AD (generalized anxiety disorder),Chronic post-traumatic stress disorder (PTSD),Other insomnia Take 1 Tablet by mouth at bedtime as needed for Anxiety or Sleep. Do not start before April 02, 2024. 30 Tablet 04/02/2024 Active traZODone HCl 100 MG Oral Tablet (Desyrel)Indications: Persistent insomnia Take 1 Tablet by mouth at bedtime. 90 Tablet 04/16/2024 Active metFORMIN HCl 1000 MG Oral Tablet (Glucophage)Indicatio ns:Type 2 diabetes mellitus with hemoglobin A1c goal of less than 7.0% ([facility]) TAKE ONE TABLET BY MOUTH TWICE A DAY(MORNING AND EVENING MEALS) 180 Tablet 04/27/2024 Active Levothyroxine Sodium 150 MCG Oral Tablet (Levoxyl)Indications: Carotid stenosis, asymptomatic, bilateral TAKE ONE TABLET BY MOUTH IN THE MORNING . AT LEAST 30 MINUTES PRIOR TO BREAKFAST OR OTHER MEDS. 30 Tablet 04/27/2024 Active Fluticasone Propionate 50 MCG/ACT Nasal [...] Acquired hypothyroidism Neurogenic bladder Coronary atherosclerosis of [place] coronary shahbaz ry documented as of this [...] Vaccine 11/01/2019 Pneumococcal Conjugate Vacci ne, 20-valent ([id number]) 10/15/2022 Pneumococcal Polysaccharide PPV23 (Pneumovax) 12/30/2010 Seasonal [...] on file documented as of this encounter Plan of Treatment Health Maintenance [...] Additional history exists CKD PHOS USE SMARTSET 89747 05/06/2024 07/2 04/2023, 04/04/2023, 08/22/2021, Additional history exists COVID-19 Vaccine (1 - 2023-25 season) 2024 Influenza Vaccine (FLU shot) (#1) 2024 10/15/2022, 08/04/2021, 08/13/2020, Additional history exists GFR 07/29/2024 01/28/2024, 12/09, 05/06/2023, Additional history exists HbA1c 07/29/2024 01/28/2024, 0602/2023, 04/04/2023, Additional history exists Diabetic Foot Exam 01/17/2025 01/18/2024, 0 10/15/2022, 11/14/2020, Additional history exists O2 ASSESSMENT COMPLETED IN PAST YEAR FOR COPD 01/17/2025 01/18/2024 CKD HGB USE SMARTSET 26382 01/27/202501/27, 12/26/2023, 05/06/2023, Additional history exists TSH [...] and were consensually agreed upon. Care Teams Behavioral Consultant Relationship Specialty Start Date End Date Brina Ruth MD [address] [place] [address] PCP - General Internal Medicine 02/19/20 documented as of this encounter
--- OUTSIDE RECORDS SUMMARY | 2024-11-01 23:55 | External Medical Summary | Summary of Care ---
Author Name Unknown Organization [facility] Address [address] [place] [address] Phone [phone] Care Team Providers Care E Commerce Merchandising Coordinator Name Role Phone Brina Ruth MD Primary Care Provider [phone] Reason for Visit * Reason Onset Date Comments Medication Question 07/04/2024 Not covered. 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 1 Each 10/15/2022 Active Fluticasone Propionate HFA 110 MCG/ACT Inhalation Aerosol (Flovent HFA)Indications:COPD, group B, by GOLD 2017 classification ([facility]) Inhale 2 Puffs by mouth [...] Respimat 2.5 MCG/ACT Inhalation Aerosol Solution (Tiotropium [place] Monohydrate) INHALE 2 PUFFS BY MOUTH IN [...] Acquired hypothyroidism Neurogenic bladder Coronary atherosclerosis of [place] coronary shahbaz ry documented as of this [...] Vaccine 11/01/2019 Pneumococcal Conjugate Vacci ne, 20-valent ([id number]) 10/15/2022 Pneumococcal Polysaccharide PPV23 (Pneumovax) 12/30/2010 Seasonal [...] encounter Miscellaneous Notes * Telephone Encounter - Brina Ruth MD - 07/04/2024 1:15 PM EDT Pt should have a new PCP in the area in network . Check with her and ask her to call new PCP * Telephone Encounter - Bacilio Ferrer CMA - 07/04/2024 12:17 PM EDT Received notice from [facility] [place] that the Spiriva Respimat, not covered/not on [...] Additional history exists CKD PHOS USE SMARTSET 30084 05/06/202404/11, 04/04/2023, 08/22/2021, Additional history exists COVID-19 Vaccine (2023- season) 2024 Influenza Vaccine (FLU shot) (#1) 2024 10/15/2022, 08/04/2021, 08/13/2020, Additional history exists GFR 07/29/2024 01/28/2024, 12/09, 05/06/2023, Additional history exists HbA1c 07/29/2024 01/28/2024, 03/12, 04/04/2023, Additional history exists Diabetic Foot Exam 01/17/2025 01/18/2024, 0 10/15/2022, 11/14/2020, Additional history exists O2 ASSESSMENT COMPLETED IN PAST YEAR FOR COPD 01/17/2025 01/18/2024 CKD HGB USE SMARTSET 62214 01/27/202501/27, 12/26/2023, 05/06/2023, Additional history exists TSH [...] and were consensually agreed upon. Care Teams E Commerce Merchandising Coordinator Relationship Specialty Start Date End Date Brina Ruth MD [address] [place] [address] PCP - General Internal Medicine 02/19/20 documented as of this encounter
--- NOTE | 2024-11-01 23:56 | CT Scan Report ---
Exam(s): CT ABDOMEN + PELVIS With Contrast IV Amt: 118 ml optiray 320 EXAM: CT Abdomen and Pelvis With Intravenous Contrast CLINICAL HISTORY: Reason for exam: abd pain. TECHNIQUE: Axial computed tomography images of the abdomen and pelvis with intravenous contrast. CTDI is 28.14 mGy and DLP is 873.63 mGy-cm. Automated exposure control was utilized for the study. A dose lowering technique was utilized adhering to the principles of ALARA. CONTRAST: Patient received 118 ml optiray 320 of IV contrast COMPARISON: 04/11/2010 FINDINGS: Lung bases: Unremarkable. No mass. No consolidation. ABDOMEN: Liver: Hepatomegaly. Hepatic steatosis. Gallbladder and bile ducts: Unremarkable. No calcified stones. No ductal dilation. Pancreas: Unremarkable. No mass. No ductal dilation. Spleen: Splenomegaly. Adrenals: interval resection of the left adrenal gland. Kidneys and ureters: Unremarkable. No solid mass. No hydronephrosis. Stomach and bowel: Postoperative changes in the stomach consistent with Cynthia fundoplication. No obstruction. No mucosal thickening. PELVIS: Appendix: No findings to suggest acute appendicitis. Bladder: Unremarkable. No mass. Reproductive: Unremarkable as visualized. ABDOMEN and PELVIS: Intraperitoneal space: Unremarkable. No free air. No significant fluid collection. Bones/joints: No acute fracture. No dislocation. Soft tissues: Unremarkable. Vasculature: Unremarkable. No abdominal aortic aneurysm. Lymph nodes: Unremarkable. No enlarged lymph nodes. IMPRESSION: No acute findings in the abdomen or pelvis. Hepatomegaly and hepatic steatosis Splenomegaly Interval resection of the left adrenal gland Electronically signed by: Richard Garcia MD 11/01/24 23:55 PM
[2024-11-02] MEDS ORDERED: DEXTROSE 50% 50 ML SYRINGE IV PRN (00:24)
[2024-11-02] MEDS ORDERED: GLUCOSE 10 TAB/TUBE PO PRN (00:24)
[2024-11-02] MEDS ORDERED: GLUCOSE 40% GEL 15 GM TUBE PO PRN (00:24)
[2024-11-02] MEDS ORDERED: GLUCAGON FOR INJ 1 MG VIAL SQ PRN (00:24)
[2024-11-02] MEDS ORDERED: CARBOHYDRATES FOR HYPOGLYCEMIA PO PRN (00:24)
[2024-11-02] MEDS: LEVALBUTEROL 1.25 MG/3 ML NEB NEB SCH (01:51)
[2024-11-02] MEDS: IPRATROPIUM BROMIDE NEB SOLN 0.02% 0.5MG/2.5ML VIAL INH SCH (01:51)
[2024-11-02] MEDS: INSULIN ASPART PER UNIT CHARGE SC SCH (01:55)
[2024-11-02] MEDS ORDERED: LINACLOTIDE 145 MCG CAPSULE PO PRN (04:40)
[2024-11-02 07:29] LABS: Estimated Average Glucose 180 mg/dl; Hemoglobin A1C 7.9 % (4.5-5.6)
[2024-11-02] MEDS: rOPINIRole HCL 0.25 MG TABLET PO SCH (08:35)
[2024-11-02] MEDS: METHOCARBAMOL 750 MG TABLET PO SCH (08:35)
[2024-11-02] MEDS: ATORVASTATIN 40 MG TAB PO SCH (08:36)
[2024-11-02] MEDS: DOXYCYCLINE HYCLATE 100 MG CAP PO SCH (08:37)
[2024-11-02] MEDS: GABAPENTIN 800 MG TAB PO SCH (08:37)
[2024-11-02] MEDS: busPIRone 15 MG TAB PO SCH (08:37)
[2024-11-02] MEDS: ENOXAPARIN INJ 40 MG/0.4 ML SYR SQ SCH (08:38)
[2024-11-02] MEDS: OSELTAMIVIR PHOSPHATE 75 MG CAP PO SCH (08:38)
[2024-11-02] MEDS: ISOSORBIDE MONO EXTENDED REL 30 MG TABCR PO SCH (08:38)
[2024-11-02] MEDS: predniSONE 20 MG TAB PO SCH (08:38)
[2024-11-02] MEDS ORDERED: cycloSPORINE (RESTASIS) OP SCH (09:00)
[2024-11-02] MEDS ORDERED: ARTIFICIAL TEARS OP PRN (09:00)
[2024-11-02] MEDS ORDERED: FLUTICASONE HFA 110MCG INHALER INH SCH (09:00)
[2024-11-02] MEDS: FLUTICASONE FUROATE 100MCG 14 PUFFS/INHALER INH SCH (09:45)
[2024-11-02] MEDS: UMECLIDINIUM BROMIDE 62.5MCG/BLISTER 7 PUFFS/INHALER INH SCH (09:46)
[2024-11-02] MEDS: PANTOprazole 40 MG TAB PO SCH (09:47)
[2024-11-02] MEDS: guaiFENesin 600 MG TABCR PO SCH (10:04)
[2024-11-02] MEDS: INSULIN ASPART PER UNIT CHARGE SC STA (10:04)
[2024-11-02 10:32] LABS: Basophils # (auto) 0.01 K/uL (0.00-0.20); Basophils % (auto) 0.2 %; Eosinophils # (auto) 0.01 K/uL (0.00-0.50); Eosinophils % (auto) 0.2 %; Hematocrit (blood only) 32.4 % (37.0-47.0); Immature Granulocytes # (auto) 0.03 K/uL (0.01-0.20); Immature Granulocytes % (auto) 0.7 %; Lymphocytes # (auto) 0.58 K/uL (1.20-3.40); Lymphocytes % (auto) 12.9 %; Mean Corpuscular Hemoglobin 22.5 pg (25.0-34.0); Mean Corpuscular Hgb Conc 30.9 g/dL (32.0-36.0); Mean Platelet Volume 9.9 fL (9.4-12.4); Monocytes # (auto) 0.38 K/uL (0.11-0.59); Monocytes % (auto) 8.4 %; Neutrophils % (auto) 77.6 %; Platelet Count 223 K/uL (130-400); RDW Coefficient of Variation 17.7 % (11.5-14.5); RDW Standard Deviation 46.6 fL (36.4-46.3); Red Blood Count 4.44 M/uL (4.20-5.40); White Blood Count 4.51 K/ul (4.8-10.8)
[2024-11-02 10:49] LABS: BUN Creatinine Ratio 17.6 (10-20); Calcium 9.6 mg/dl (8.6-10.3); Creatinine Clr Calc Pharmacy 123.4 ml/min; Potassium 4.4 mmol/L (3.5-5.1)
[2024-11-02 13:23] LABS: Appearance Urine Clear (Clear); Bilirubin Urine Negative (Negative); Blood Urine Negative (Negative); Color Urine Yellow; Glucose Urine UA 2+ (Negative); Ketones Urine Negative (Negative); Leukocyte Esterase Urine Negative (Negative); Nitrite Urine Negative (Negative); Protein Urine Negative (Negative); Specific Gravity Urine 1.017 (1.000-1.030); Urobilinogen Urine Negative (Negative)
--- NOTE | 2024-11-02 13:40 | Electrocardiogram Report ---
Test Reason : Blood Pressure : */* mmHG Vent. Rate : 106 BPM Atrial Rate : 106 BPM P-R Int : 146 ms QRS Dur : 88 ms QT Int : 332 ms P-R-T Axes : -1 -27 49 degrees QTcB Int : 441 ms Sinus tachycardia Minimal voltage criteria for LVH, may be normal variant Borderline ECG When compared with ECG of 24-Dec-2023 02:33, No significant change was found Confirmed by Chiki Dyson ([id number]) on 11/02/2024 1:39:53 PM Referred By: Confirmed By: Chiki Dyson
[2024-11-02] MEDS ORDERED: methylPREDNISolone 125 MG/2 ML VIAL IV SCH (17:30)
--- NOTE | 2024-11-02 17:48 | Hospitalist Progress Note ---
Date of Service November 02, 2024 Assessment & Plan (1) Acute hypoxemic respiratory failure: Plan: per admitting service notes with addendum: Acute hypercapnic, hypoxemic respiratory failure History TATYANA/CPAP intolerance Secondary to COPD exacerbation/complicated bronchitis secondary to influenza illness History TATYANA/CPAP intolerance hx CAD/PVD hypertension, slight elevated hyperlipidemia, on statin Rx thyroid cancer status post surgery postsurgical hypothyroidism, euthyroid as of recent outpatient TSH from last year DM2 on oral medications, well-controlled as of hemoglobin A1c of 6.4 last January 2024 benign adrenal tumor status post surgery IBD, history of ulcerative colitis in remission chronic anemia, at baseline multiple sclerosis, RRMS as per daughter, patient slated to see [facility] neurologist anxiety/mood disorder/fibromyalgia, patient on multiple neuropsychotropic medications ongoing vape use 11/02 CT chest: no pneumonia change Prednisone to Solumedrol obtain sputum culture add Hypertonic Saline, IS and FV continue Nebs, Doxycycline DVT prophylaxis. Lovenox subcu Full code Admission and Anticipated Discharge Date Admission Date: November 01, 2024 Subjective ff up for acute hypoxic respiratory failure, etc seen resting in bed, comfortable on 3 L NC states she feels improved compared to this AM but still has some dyspnea, still has productive cough no chest pain, palpitations, dizziness, nausea no other symptoms Review of Systems Review of Systems: all noted and negative except for above Physical Exam Physical Exam: General- oriented x 3, not in distress, speaks in sentences with no effort or accessory muscle use Eyes- anicteric Neck- no JVD Lungs- (+) scattered mild wheeze/rhonchi BL Heart- normal rate, regular rhythm; no murmurs Abdomen- normal bowel sounds, nondistended, soft, nontender Extremities- no pretibial edema, no calf tenderness Neuro- alert, oriented x 3; no gross focal neurologic deficits Skin- warm & dry Results & Data Results & Data Vital Signs (Past 12 Hours) Vital Signs Pulse Pulse Resp BP Pulse Ox O2 Del Method O2 Flow Rate 11/02/24 14:00 100 H 17 117/96 92 Nasal Cannula 4 11/02/24 12:01 94 H 15 96 Nasal Cannula 4 11/02/24 11:00 98 H 21 133/83 94 Nasal Cannula 4 11/02/24 10:06 93 H 22 115/85 96 Nasal Cannula 4 11/02/24 07:23 100 H 20 156/99 H 94 Nasal Cannula 4 11/02/24 07:00 90 16 94 Nasal Cannula 4 11/02/24 06:42 90 18 132/86 98 Nasal Cannula 4 all noted and reviewed including below
[2024-11-02] MEDS: methylPREDNISolone 40 MG in SYRINGE 0 ML IV SCH (18:10)
[2024-11-02] MEDS: BACLOFEN 10 MG TAB PO PRN (19:36)
[2024-11-02] MEDS: FLUoxetine HCL 20 MG CAP PO SCH (20:06)
[2024-11-02] MEDS: DULoxetine HCL 60 MG CAP PO SCH (20:07)
[2024-11-02] MEDS: traZODone HCL 100 MG TAB PO SCH (20:08)
[2024-11-02] MEDS: PRAZOSIN HCL 1 MG CAP PO SCH (20:09)
[2024-11-02] MEDS: FEXOFENADINE HCL 180 MG TAB PO SCH (20:10)
[2024-11-02] MEDS: dilTIAZem HCL 240 MG CAPCR PO SCH (20:10)
[2024-11-02] MEDS: DULoxetine HCL 30 MG CAP PO SCH (20:10)
[2024-11-02] MEDS: FENOFIBRATE NANOCRYSTALLIZED 145 MG TABLET PO SCH (20:11)
[2024-11-02] MEDS: LEVOTHYROXINE SODIUM 150 MCG TABLET PO SCH (20:12)
[2024-11-02] MEDS: valACYclovir HCL 500 MG TABLET PO SCH (20:14)
[2024-11-02] MEDS: SODIUM CHLOR 7% 4 ML NEB NEB SCH (20:21)
[2024-11-02] MEDS: LORazepam 0.5 MG TAB PO PRN (21:02)
[2024-11-03] MEDS: ACETAMINOPHEN 500 MG TAB PO PRN (03:19)
--- NOTE | 2024-11-03 17:24 | Hospitalist Progress Note ---
Date of Service November 03, 2024 Assessment & Plan (1) Acute hypoxemic respiratory failure: Plan: per admitting service notes with addendum: Acute hypercapnic, hypoxemic respiratory failure History TATYANA/CPAP intolerance Secondary to COPD exacerbation/complicated bronchitis secondary to influenza illness History TATYANA/CPAP intolerance hx CAD/PVD hypertension, slight elevated hyperlipidemia, on statin Rx thyroid cancer status post surgery postsurgical hypothyroidism, euthyroid as of recent outpatient TSH from last year DM2 on oral medications, well-controlled as of hemoglobin A1c of 6.4 last January 2024 benign adrenal tumor status post surgery IBD, history of ulcerative colitis in remission chronic anemia, at baseline multiple sclerosis, RRMS as per daughter, patient slated to see [facility] neurologist anxiety/mood disorder/fibromyalgia, patient on multiple neuropsychotropic medications ongoing vape use 11/02 CT chest: no pneumonia change Prednisone to Solumedrol obtain sputum culture add Hypertonic Saline, IS and FV continue Nebs, Doxycycline 11/03 Gradually improving, currently down to 2 L of O2 via nasal cannula Continue present regimen including: Tamiflu Doxycycline Nebs 4 times daily Hypertonic saline twice daily Mucinex twice daily At this time spirometry and flutter valve Continue to wean off oxygen supplement Monitor closely DVT prophylaxis. Lovenox subcu Full code Disposition Pending Anticipate discharge to home medically stable in 1 to 2 days Will need a two-step O2 Admission and Anticipated Discharge Date Admission Date: November 01, 2024 Subjective Follow-up for acute hypoxic respiratory failure, COPD exacerbation, influenza infection, etc. Seen resting in bed, on 2 L of O2 by nasal cannula, comfortable, not in distress States she feels improved compared to yesterday Breathing is improving, still having some cough, still having some difficulty expectorating phlegm but appears to be looser No chest pain, palpitations, dizziness No fevers or chills No other new symptoms Review of Systems Review of Systems: all noted and negative except for above Physical Exam Physical Exam: General- oriented x 3, not in distress, speaks in sentences with no effort or accessory muscle use Eyes- anicteric Neck- no JVD Lungs- Positive mild bilateral scattered wheezing, with some rhonchi, otherwise good air entry bilaterally Heart- normal rate, regular rhythm; no murmurs Abdomen- normal bowel sounds, nondistended, soft, nontender Extremities- no pretibial edema, no calf tenderness Neuro- alert, oriented x 3; no gross focal neurologic deficits Skin- warm & dry Results & Data Results & Data Vital Signs (Past 12 Hours) Vital Signs Temp Pulse Pulse Resp BP Pulse Ox O2 Del Method 11/03/24 15:54 36.7 C 94 H 20 161/70 H 94 Nasal Cannula 11/03/24 15:20 97 H 11/03/24 13:22 94 H 18 94 Nasal Cannula 11/03/24 12:31 36.5 C 97 H 16 123/75 94 Nasal Cannula 11/03/24 09:00 Room Air 11/03/24 07:55 36.5 C 86 16 145/85 H 91 Nasal Cannula 11/03/24 07:33 69 11/03/24 07:09 98 H 16 98 Nasal Cannula O2 Flow Rate 11/03/24 15:54 2 11/03/24 15:20 11/03/24 13:22 2 11/03/24 12:31 1.5 11/03/24 09:00 2 11/03/24 07:55 1.5 11/03/24 07:33 11/03/24 07:09 3 all noted and reviewed including below
[2024-11-04] MEDS ORDERED: PHARMACY GLYCEMIC MGMT CONSULT PRN (08:41)
[2024-11-04] MEDS: LANTUS PER UNIT CHARGE SQ SCH (11:01)
[2024-11-04 11:37] VITALS: PULSE 89; RESP 16; TEMP 98.1; O2SAT 90
--- NOTE | 2024-11-04 13:14 | Pharmacy Report ---
Pharmacy Glycemic Short Note 2 - Date of Service November 04, 2024 - Glycemic Short BSG Results (Last 24 hours): 11/03/24 11/03/24 11/04/24 17:09 20:19 08:12 POC Glucose 201 H 268 H 299 H 11/04/24 11:54 POC Glucose 207 H OUTPATIENT ANTIDIABETIC REGIMEN: * metformin 1 g PO BIDM HbA1c: 7.9% (11/01/24) ASSESSMENT: * PH is a 59 year old female w/ acute hypoxemic respiratory failure secondary to COPD exacerbation/influenza * Pharmacy consulted on 11/04/24 for glycemic management due to persistent hyperglycemia * Pertinent PMH includes T2DM, CAD, PVD, HTN, and COPD * Ordered methylprednisolone 40 mg IV q8h PLAN FOR INPATIENT GLYCEMIC CONTROL: * Hold outpatient oral diabetes medications * Basal insulin * Lantus 30 units SC x 1 * Lantus 0-10-15 units SC HS * Reassess in AM * Bolus insulin * NovoLog per scale ACHS or Q6hrs while NPO * Goal Range: Low 110 mg/dL - High 140 mg/dL * Correction Factor: 20 mg/dL/unit * Nutritional / Prandial insulin per carb ratio of 1 unit per 6 grams CHO consumed
--- NOTE | 2024-11-04 14:38 | Discharge Summary ---
Discharge Summary Date of Service November 04, 2024 Principal Dx & Hospital Course #1 = Principal Diagnosis (1) Acute hypoxemic respiratory failure: per admitting service notes with addendum: Acute hypercapnic, hypoxemic respiratory failure History TATYANA/CPAP intolerance Secondary to COPD exacerbation/complicated bronchitis secondary to influenza illness History TATYANA/CPAP intolerance hx CAD/PVD hypertension, slight elevated hyperlipidemia, on statin Rx thyroid cancer status post surgery postsurgical hypothyroidism, euthyroid as of recent outpatient TSH from last year DM2 on oral medications, well-controlled as of hemoglobin A1c of 6.4 last January 2024 benign adrenal tumor status post surgery IBD, history of ulcerative colitis in remission chronic anemia, at baseline multiple sclerosis, RRMS as per daughter, patient slated to see [facility] neurologist anxiety/mood disorder/fibromyalgia, patient on multiple neuropsychotropic medications ongoing vape use 11/02 CT chest: no pneumonia change Prednisone to Solumedrol obtain sputum culture add Hypertonic Saline, IS and FV continue Nebs, Doxycycline 11/03 Gradually improving, currently down to 2 L of O2 via nasal cannula Continue present regimen including: Tamiflu Doxycycline Nebs 4 times daily Hypertonic saline twice daily Mucinex twice daily At this time spirometry and flutter valve 11/04 patient significantly improved states she feels much better, breathing is better, minimal cough ambulated in the halls, does not require O2 supplement per 2 step exercise test discharge plan: Tamiflu Doxycycline Prednisone taper 40mg x 2 days, 30mg x 2 days, etc Nebs TID Mucinex ff up with PCP in [address] findings Hepatomegaly. Hepatic steatosis. Splenomegaly. DVT prophylaxis. Lovenox subcu given Full code Notes For Next Care Provider Medication Changes From Visit Tamiflu Doxycycline Prednisone taper 40mg x 2 days, 30mg x 2 days, etc Nebs TID Mucinex Admission HPI Per Admitting Provider History obtained from patient, family, and records. Medical history significant for CAD, PVD, hypertension, hyperlipidemia, COPD, TATYANA/CPAP intolerance, thyroid cancer status post surgery, postsurgical hypothyroidism, DM2 on oral medications, adrenal tumor status post surgery, GERD status post surgery, NAFLD, IBD, chronic anemia (baseline hemoglobin of 11), multiple sclerosis, anxiety/mood disorder, fibromyalgia, HSV on chronic Valtrex prophylaxis, ongoing vape use. 2 days history of junky cough symptoms associated with worsening shortness of breath. Pleuritic left-sided chest pain with abdominal pain. Denies fluid retention. Sick family members with the flu. Patient brought to the ER for evaluation. Medical History as above Surgical History : Thyroidectomy, breast reduction, left adrenalectomy, Niesen fundoplication, sinus surgery, BTL, DARLIN, total thyroidectomy Family History : Heart disease, stroke, Wilms tumor, MS, uterine cancer Personal/Social history : Ongoing vape use, no EtOH intake, disabled Admission Exam Per Admitting Provider GENERAL: Slightly uncomfortable, obese, minimal respiratory distress SKIN: Normal color, warm HEENT: Mullan palpebral conjunctivae, no ptosis, dry buccal mucosa, nasal cannula in place NECK : Supple, short neck, no tenderness CHEST : Decreased breath sounds, expiratory wheezes, no tenderness HEART : Tachycardic, no obvious murmurs ABDOMEN: Some distention, nontender EXTREMITIES : No LE swelling/tenderness, no other conspicuous deformities noted NEUROLOGIC : Coherent, no facial asymmetry, rest tremors, no other gross focality Discharge Exam General- oriented x 3, not in distress, speaks in sentences with no effort or accessory muscle use Eyes- anicteric Neck- no JVD Lungs- very faint, intermittent scattered rhonchi bilaterally Heart- normal rate, regular rhythm; no murmurs Abdomen- normal bowel sounds, nondistended, soft, nontender Extremities- no pretibial edema, no calf tenderness Neuro- alert, oriented x 3; no gross focal neurologic deficits Skin- warm & dry Updated Medication List Medication Instructions Recorded Confirmed Type albuterol sulfate 90 mcg/actuation 2 puff inhalation Q4 PRN Shortness 11/01/24 11/01/24 History aerosol inhaler Of Breath Or Wheezing atorvastatin 80 mg tablet 80 mg PO DAILY 11/01/24 11/01/24 History baclofen 10 mg tablet 10 mg PO TID PRN Pain 11/01/24 11/01/24 History buspirone 15 mg tablet 15 mg PO AMHS 11/01/24 11/01/24 History clobetasol 0.05 % topical cream 1 applic topical BID PRN 11/01/24 11/01/24 History DIRECTED cyclosporine 0.05 % eye drops in a 1 drp [facility] 11/01/24 11/01/24 History dropperette (Restasis) dicyclomine 20 mg tablet 20 mg PO TID PRN STOMACH CRAMPING 11/01/24 11/01/24 History diltiazem HCl 240 mg 240 mg PO HS 11/01/24 11/01/24 History capsule,extended release 24 hr duloxetine 30 mg capsule,delayed 30 mg PO QPM 11/01/24 11/01/24 History release duloxetine 60 mg capsule,delayed 60 mg PO QPM 11/01/24 11/01/24 History release fenofibrate 160 mg tablet 160 mg PO HS 11/01/24 11/01/24 History fexofenadine 180 mg tablet 180 mg PO HS 11/01/24 11/01/24 History fluocinonide 0.05 % topical 1 applic topical 2XWK 11/01/24 11/01/24 History solution fluoxetine 40 mg capsule 40 mg PO HS 11/01/24 11/01/24 History fluticasone propionate 110 2 puff inhalation AMHS 11/01/24 11/01/24 History mcg/actuation HFA aerosol inhaler fluticasone propionate 50 1 spray intranasal BID 11/01/24 11/01/24 History mcg/actuation nasal spray,suspension furosemide 20 mg tablet 20 mg PO QAM 11/01/24 11/01/24 History gabapentin 800 mg tablet 1,600 mg PO BID 11/01/24 11/01/24 History isosorbide mononitrate 30 mg 30 mg PO QAM 11/01/24 11/01/24 History tablet,extended release 24 hr levothyroxine 150 mcg tablet 150 mcg PO QPM 11/01/24 11/01/24 History linaclotide 145 mcg capsule 145 mcg PO DAILY PRN Constipation 11/01/24 11/01/24 History (Linzess) lorazepam 1 mg tablet 1 mg PO HS PRN ANXIETY OR SLEEP 11/01/24 11/01/24 History melatonin 10 mg tablet 10 mg PO HS 11/01/24 11/01/24 History metformin 1,000 mg tablet 1,000 mg PO AMPM 11/01/24 11/01/24 History methocarbamol 750 mg tablet 750 mg PO TID 11/01/24 11/01/24 History mupirocin 2 % topical ointment 1 applic topical BID 11/01/24 11/01/24 History nitroglycerin 0.4 mg sublingual 0.4 mg sublingual UD PRN Chest Pain 11/01/24 11/01/24 History tablet (Nitrostat) ondansetron HCl 4 mg tablet 4 mg PO Q8 PRN Nausea 11/01/24 11/01/24 History pantoprazole 40 mg tablet,delayed 40 mg PO BID 11/01/24 11/01/24 History release prazosin 2 mg capsule 2 mg PO HS 11/01/24 11/01/24 History ropinirole 0.5 mg tablet 0.5 mg PO TID 11/01/24 11/01/24 History selenium sulfide 2.25 % shampoo 1 applic topical 2XWK 11/01/24 11/01/24 History tiotropium bromide 2.5 2 puff inhalation QAM 11/01/24 11/01/24 History mcg/actuation mist for inhalation (Spiriva Respimat) trazodone 100 mg tablet 200 mg PO HS 11/01/24 11/01/24 History valacyclovir 1 gram tablet 1,000 mg PO HS 11/01/24 11/01/24 History doxycycline hyclate 100 mg capsule 100 mg PO BIDM #9 caps 11/04/24 Rx guaifenesin 600 mg tablet, 600 mg PO Q12 7 days #14 tabs 11/04/24 Rx extended release 12 hr (Mucinex) ipratropium bromide 0.02 % 0.5 mg (2.5 mL) inhalation TID #75 11/04/24 Rx solution for inhalation mL levalbuterol HCl 1.25 mg/3 mL 1.25 mg (3 mL) NEB TID #90 mL 11/04/24 Rx solution for nebulization oseltamivir 75 mg capsule (Tamiflu) 75 mg PO BID #5 caps 11/04/24 Rx prednisone 10 mg tablet 10 mg PO DIRECTED #20 tabs 11/04/24 Rx Hospital Stay Data Consultations 11/01/24 19:40 ED Decision to Admit Stat Diagnostic Imagining Performed EXAM: CT Abdomen and Pelvis With Intravenous Contrast CLINICAL HISTORY: Reason for exam: abd pain. TECHNIQUE: Axial computed tomography images of the abdomen and pelvis with intravenous contrast. CTDI is 28.14 mGy and DLP is 873.63 mGy-cm. Automated exposure control was utilized for the study. A dose lowering technique was utilized adhering to the principles of ALARA. CONTRAST: Patient received 118 ml optiray 320 of IV contrast COMPARISON: 04/11/2010 FINDINGS: Lung bases: Unremarkable. No mass. No consolidation. ABDOMEN: Liver: Hepatomegaly. Hepatic steatosis. Gallbladder and bile ducts: Unremarkable. No calcified stones. No ductal dilation. Pancreas: Unremarkable. No mass. No ductal dilation. Spleen: Splenomegaly. Adrenals: interval resection of the left adrenal gland. Kidneys and ureters: Unremarkable. No solid mass. No hydronephrosis. Stomach and bowel: Postoperative changes in the stomach consistent with Cynthia fundoplication. No obstruction. No mucosal thickening. PELVIS: Appendix: No findings to suggest acute appendicitis. Bladder: Unremarkable. No mass. Reproductive: Unremarkable as visualized. ABDOMEN and PELVIS: Intraperitoneal space: Unremarkable. No free air. No significant fluid collection. Bones/joints: No acute fracture. No dislocation. Soft tissues: Unremarkable. Vasculature: Unremarkable. No abdominal aortic aneurysm. Lymph nodes: Unremarkable. No enlarged lymph nodes. IMPRESSION: No acute findings in the abdomen or pelvis. Hepatomegaly and hepatic steatosis Splenomegaly Interval resection of the left adrenal gland Electronically signed by: Richard Garcia MD 11/01/24 23:55 PM EXAM: CT Angiography Chest With Intravenous Contrast CLINICAL HISTORY: Reason for exam: cp. TECHNIQUE: Axial computed tomographic angiography images of the chest with intravenous contrast. CTDI is 11.87 mGy and DLP is 5.94 mGy-cm. Automated exposure control was utilized for the study. A dose lowering technique was utilized adhering to the principles of ALARA. MIP reconstructed images were created and reviewed. COMPARISON: No relevant prior studies available. FINDINGS: Pulmonary arteries: Unremarkable. No pulmonary embolism. Aorta: No acute findings. No thoracic aortic aneurysm. Lungs: Unremarkable. No mass. No consolidation. Pleural space: Unremarkable. No significant effusion. No pneumothorax. Heart: Unremarkable. No cardiomegaly. No significant pericardial effusion. No evidence of RV dysfunction. Bones/joints: No acute fracture. No dislocation. Soft tissues: Unremarkable. Lymph nodes: Unremarkable. No enlarged lymph nodes. IMPRESSION: Normal chest CTA. No pulmonary embolism. Pending Results Patient Have Any Pending Studies at Discharge: No Discharge Instructions Given to Patient (Per Discharging Provider) PLEASE REFER TO YOUR NEW MEDICATION LIST AND FOLLOW INSTRUCTIONS CAREFULLY. YOUR NEW MEDICATIONS INCLUDE: Tamiflu-antiviral medication for influenza A Doxycycline-antibiotic for acute bronchitis Prednisone-steroids for COPD exacerbation, to be taken as follows: 40 mg daily x 2 days, then 30 mg daily x 2 days, then 20 mg daily x 2 days, then 10 mg daily x 2 days, then stop Xopenex/Atrovent-nebulizer treatment for COPD exacerbation Mucinex-for cough Take a probiotic daily and eat yogurt daily for at least 1 month. Call your primary care physician immediately if you are to develop diarrhea. Please continue using your incentive spirometer and flutter valve at home. Please continue to isolate and wear a mask for the next 7 days to prevent transmission of influenza A. PLEASE CALL YOUR PRIMARY CARE PHYSICIAN OR RETURN TO THE ER IF WITH WORSENING OF SYMPTOMS, INCLUDING Shortness of breath, cough, fevers or chills, chest pain, diarrhea, etc. FOLLOW UP WITH PRIMARY CARE PHYSICIAN OUTLINED ABOVE. Total Time Total Time Spent Total Time Spent (In Minutes): 45 minutes
[2024-11-04 14:44] VITALS: BP 148/99
[2024-11-04] MEDS ORDERED: LANTUS PER UNIT CHARGE SQ SCH (21:00)
[2024-11-05] MEDS ORDERED: LANTUS PER UNIT CHARGE SQ SCH ×2 (09:00)
== END 2024-11-04 14:40 | disposition home or self-care (01) | DRG 152 ==
LOC: ED 16:13 → INTOOBSV 19:58 → EDINP 19:58 → 2W 11-02 01:07